=== PATIENT | female | born 1970 | race African-American/Black ===

== ENCOUNTER 2016-07-02 07:10 | Emergency (ER) | payer SELFPAY ==
[2016-07-02 07:27] VITALS: TEMP 98.9; BMI 27.8
[2016-07-02] MEDS ORDERED: cloNIDine HCL 0.1 MG TABLET PO ONE (08:31)
[2016-07-02] MEDS ORDERED: KETOROLAC TROMETHAMINE 30 MG/1 ML VIAL IVPUSH ONE (08:32)
[2016-07-02] MEDS ORDERED: SODIUM CHLORIDE 1,000 ML IV STA (08:32)
[2016-07-02] MEDS ORDERED: cloNIDine HCL 0.1 MG TABLET ONE (08:34)
--- NOTE | 2016-07-02 08:41 | PDOC ---
History of Present Illness - General Chief Complaint: Blood Pressure Problem Stated Complaint: BODY PAIN Time Seen by Provider: 07/02/16 07:40 History Source: Patient Exam Limitations: No Limitations - History of Present Illness Initial Comments: 07/02/16 08:01 46-year-old female presents to the ED with complaints of cough since Friday associated with chills and a MAXIMUM TEMPERATURE of 101.0 yesterday associated with productive cough which she describes as semi-thick and white. Patient states every time she coughs her back and abdomen hurts and also states has had a frontal headache since yesterday. Patient also states was told by her clinical laboratory technician 2 months ago that her blood pressure was high and needs to follow-up with her PCP but has failed to do so since she states she was scared to be told that she had high blood pressure. Patient also states was a 4 beer a day drinker 4 times a week up until last week but states works full-time and follows a normal diet. patient denies change in bowel, change in urine pattern , lower extremity edema, shortness of breath, orthopnea, chest pain, palpitations, or right upper quadrant pain. Patient denies medical history and takes no medication daily. Timing/Duration: changing over time Severity: moderate Associated Symptoms: reports: cough, fever/chills, headaches, weakness (mild generalized) Past History - Past Medical History Allergies/Adverse Reactions: Allergies Allergy/AdvReac Type Severity Reaction Status Date / Time Penicillins Allergy Verified 07/02/16 07:19 Home Medications: Ambulatory Orders Azithromycin [Zithromax Tri-Mauricio (3 DAYS) -] 500 mg PO DAILY #3 tablet 07/02/16 Other medical history: PATIENT DENIES MEDICAL HISTORY - Reproductive History LMP Normal: Yes Is Patient Now?: No - Psycho/Social/Smoking Cessation Hx Anxiety: No Suicidal Ideation: No Smoking History: Never smoked Hx Alcohol Use: Yes (beer daily) Drug/Substance Use Hx: No Substance Use Type: Alcohol Patient Lives Alone: No Lives with/in: daughter Review of Systems - Review of Systems Able to Perform ROS?: Yes Constitutional: Yes: Chills, Fever, Weakness HEENTM: Yes: Throat Pain (mild) Respiratory: Yes: Cough, Productive cough Cardiac (ROS): No: Symptoms Reported ABD/GI: No: Symptoms Reported : No: Symptoms Reported Musculoskeletal: Yes: Neck Pain Integumentary: No: Symptoms Reported Neurological: Yes: Headache. No: Weakness, Dizziness Endocrine: No: Symptoms Reported Hematologic/Lymphatic: No: Symptoms Reported *Physical Exam - Vital Signs Last Vital Signs Temp Pulse Resp BP Pulse Ox 98.9 F 100 H 16 181/119 98 07/02/16 07:14 07/02/16 08:31 07/02/16 08:31 07/02/16 08:31 07/02/16 08:31 - Physical Exam General Appearance: Yes: Nourished, Appropriately Dressed. No: Apparent Distress HEENT: positive: EOMI, TYLER, Pharynx Normal. negative: Pale Conjunctivae Neck: positive: Supple. negative: Lymphadenopathy (R), Lymphadenopathy (L), Other (no JVD) Respiratory/Chest: positive: Lungs Clear, Normal Breath Sounds. negative: Respiratory Distress, Accessory Muscle Use Cardiovascular: positive: Regular Rhythm, Tachycardia. negative: Murmur Gastrointestinal/Abdominal: positive: Soft, Distended (mild). negative: Guarding, Rebound, Tenderness, Mass Musculoskeletal: negative: CVA Tenderness Extremity: positive: Normal Capillary Refill. negative: Pedal Edema Integumentary: positive: Normal Color, Dry, Warm Neurologic: positive: Motor Strength 5/5 (ambulatory). negative: Normal Mood/ Affect (mildly anxious) ED Treatment Course - LABORATORY CBC & Chemistry Diagram: 07/02/16 09:15 07/02/16 09:15 - RADIOLOGY Radiology Studies Ordered: Category Date Time Status CHEST PA & LAT [RAD] Stat Radiology 07/02/16 08:32 Ordered Medical Decision Making - Medical Decision Making 07/02/16 08:06 Patient with elevated blood pressure, headache, cough, chills, alcohol abuse concerning for electrolyte imbalance, end organ damage, and intracranial pathology. Patient ordered for labs, EKG, chest x-ray, influenza swab, IV fluids , clonidine to control blood pressure, IV fluids, head CT, and urine. 07/02/16 11:25 Laboratory Tests 07/02/16 07/02/16 07/02/16 08:59 08:59 09:15 WBC 2.5 L Hgb 8.9 L Hct 29.1 L MCV 67.6 L MCHC 30.5 L RDW 24.5 H Plt Count 240 Sodium 134 L Chloride 102 Carbon Dioxide 22 Anion Gap 10 BUN 8 Creatinine 0.8 Lactic Acid AST 255 H ALT 102 H Albumin 2.8 L Serum , Qual Urine Glucose (UA) Negative Urine Ketones 1+ H Urine Blood 3+ H Urine Nitrite Negative Urine Urobilinogen 2.0 e.u/dl H Urine RBC 8 Urine WBC 1 Urine HCG, Qual Pending 07/02/16 07/02/16 09:15 09:15 WBC Hgb Hct MCV MCHC RDW Plt Count Sodium Chloride Carbon Dioxide Anion Gap BUN Creatinine Lactic Acid 0.832 AST ALT Albumin Serum , Qual Negative Urine Glucose (UA) Urine Ketones Urine Blood Urine Nitrite Urine Urobilinogen Urine RBC Urine WBC Urine HCG, Qual Head CT shows mild to moderate volume loss probable chronic microvascular ischemic changes without gross evidence of acute intracranial pathology. Patient is influenza B-positive. 07/02/16 11:26 Selected Entries 07/02/16 10:39 Pulse Rate [ 84 Radial] Respiratory 16 Rate Blood Pressure 134/99 [Left Arm] Blood Pressure 110 Mean [Left Arm] O2 Sat by Pulse 96 Oximetry (%) chest x-ray shows questionable right lower lobe infiltrate. Based on patient's clinical exam and history patient will be given a prescription for azithromycin 07/02/16 11:39 Called and made an appointment with Dr. Jimmy Torres this Friday at 9:30 for patient. 07/02/16 11:58 *DC/Admit/Observation/Transfer Diagnosis at time of Disposition: Influenza B, Elevated blood pressure reading Right lower lobe pneumonia Qualifiers: Pneumonia type: due to unspecified organism Qualified Code(s): J18.1 - Lobar pneumonia, unspecified organism - Discharge Dispostion Disposition: HOME Condition at time of disposition: Improved - Prescriptions Prescriptions: Azithromycin [Zithromax Tri-Mauricio (3 DAYS) -] 500 mg PO DAILY #3 tablet - Patient Instructions Printed Discharge Instructions: DI for High Blood Pressure, DI for Influenza - - Adult Additional Instructions: You have an appointment with Dr. Jimmy Torres this Friday at 9:30 in the morning [address] [place] [address] You were diagnosed with influenza B and advised to rest at home for the next 2 days taking Motrin for discomfort and fever. On your chest x-ray there is a questionable right lower lobe pneumonia which I am giving you a prescription of azithromycin for which you need to take until completed Avoid alcohol, use drink plenty of fluids and eat well-balanced meals - Post Discharge Activity Work/School Note: Back to Work
[2016-07-02] MEDS ORDERED: KETOROLAC TROMETHAMINE 30 MG/1 ML VIAL ONE (08:47)
[2016-07-02 09:40] LABS: MCH 20.6 pg (25.7-33.7); MCHC 30.5 g/dl (32.0-36.0); MEAN CELL VOLUME 67.6 fl (80-96); MEAN PLT VOLUME 8.5 fl (7.5-11.1); PLATELET COUNT 240 K/MM3 (134-434); RDW 24.5 % (11.6-15.6); WHITE BLOOD COUNT 2.5 K/mm3 (4.0-10.0)
[2016-07-02 10:40] VITALS: PULSE 84
[2016-07-02 10:41] LABS: URINE APPEARANCE CLEAR; URINE BILIRUBIN NEGATIVE (NEGATIVE); URINE COLOR YELLOW; URINE GLUCOSE (UA) NEGATIVE (NEGATIVE); URINE KETONE 1+ (NEGATIVE); URINE LEUK ESTERASE NEGATIVE (NEGATIVE); URINE NITRITE NEGATIVE (NEGATIVE); URINE PROTEIN NEGATIVE (NEGATIVE); URINE UROBILINOGEN 2.0 E.U/dl E.U./dl (0.2-1.0)
[2016-07-02 10:58] LABS: URINE BLOOD 3+ (NEGATIVE)
[2016-07-02 11:01] LABS: URINE HYALINE CAST 1 /lpf; URINE MUCUS RARE; URINE RBC 8 /hpf (0-3); URINE WBC 1 /hpf (3-5)
[2016-07-02 11:03] LABS: ALBUMIN 2.8 g/dl (3.4-5.0); ANION GAP 10 (8-16); CO2 22 mmol/L (21-32); COCKROFT - GAULT 92.3695; CREATININE 0.8 mg/dL (0.55-1.02); GLUCOSE,RANDOM 96 mg/dL (74-106); SGOT/AST 255 U/L (15-37)
[2016-07-02 11:14] LABS: ALK PHOS 105 U/L (45-117); BILIRUBIN,TOTAL 0.4 mg/dL (0.2-1.0); SGPT/ALT 102 U/L (12-78); TOT PROT 7.5 g/dl (6.4-8.2)
[2016-07-02 11:58] VITALS: BP 145/95
--- NOTE | 2016-07-02 12:38 | EKG ---
Test Reason : Blood Pressure : / mmHG Vent. Rate : 090 BPM Atrial Rate : 090 BPM P-R Int : 122 ms QRS Dur : 080 ms QT Int : 400 ms P-R-T Axes : 012 000 024 degrees QTc Int : 489 ms NORMAL SINUS RHYTHM PROLONGED QT ABNORMAL ECG WHEN COMPARED WITH ECG OF 03-OCT-2008 17:01, NO SIGNIFICANT CHANGE WAS FOUND CLINICAL CORRELATION IS RECOMMENDED Confirmed by MAGI PURI, KAVIN ([id number]) on 07/02/2016 12:38:25 PM Referred By: Confirmed By:KAVIN SOW MD
[2016-07-02 12:51] LABS: HYPOCHROMIA 4+; MICROCYTOSIS 2+; PLATELET ESTIMATE ADEQUATE (NORMAL); POLYCHROMASIA 1+
[2016-07-02 12:52] LABS: ANISOCYTOSIS 1+
== END 2016-07-02 12:15 | disposition home or self-care (01) ==
LOC: JER 07:10
PROC: 3E0333Z Introduction of Anti-inflammatory into Peripheral Vein, Percutaneous Approach (ICD-10-PCS; principal; 2016-07-02)
PROC: 3E0337Z Introduction of Electrolytic and Water Balance Substance into Peripheral Vein, Percutaneous Approach (ICD-10-PCS; 2016-07-02)
DX: J10.1 Influenza due to other identified influenza virus with other respiratory manifestations (principal); J18.1 Lobar pneumonia, unspecified organism; Z01.31 Encounter for examination of blood pressure with abnormal findings
CPT/HCPCS: 36415; 70450-TC; 71020-TC; 80053; 81003; 81015; 83605; 84703; 85025; 87804; 93005; 93010; 99283-25

== ENCOUNTER 2016-12-25 00:35 | Inpatient (IN) | payer OTHER ==
[2016-12-25] MEDS ORDERED: FAMOTIDINE 20 MG/50 ML IVPB 50 ML IVPB ONE ×2 (01:44→02:01)
[2016-12-25] MEDS ORDERED: SODIUM CHLORIDE 1,000 ML IV STA ×2 (01:44→03:11)
[2016-12-25] MEDS ORDERED: PANTOPRAZOLE SODIUM 40 MG in SODIUM CHLORIDE 100 ML IVPB ONE (01:44)
[2016-12-25] MEDS ORDERED: LIDOCAINE VISCOUS 2% ORAL/TOP 20 ML UNIT-DOSE CUP MM ONE (01:44)
[2016-12-25] MEDS ORDERED: ONDANSETRON 4 MG/2 ML VIAL IVPUSH ONE (01:46)
[2016-12-25] MEDS ORDERED: ONDANSETRON 4 MG/2 ML VIAL ONE ×2 (02:00→03:26)
[2016-12-25] MEDS ORDERED: LIDOCAINE VISCOUS 2% ORAL/TOP 20 ML UNIT-DOSE CUP ONE (02:00)
[2016-12-25] MEDS ORDERED: PANTOPRAZOLE SODIUM 40 MG VIAL ONE (02:04)
[2016-12-25 02:46] LABS: BASOPHIL 1.3 % (0-2.0); MCH 26.3 pg (25.7-33.7); MCHC 30.6 g/dl (32.0-36.0); MEAN PLT VOLUME 6.7 fl (7.5-11.1); NEUTROPHILS 88.3 % (42.8-82.8); PLATELET COUNT 270 K/MM3 (134-434); WHITE BLOOD COUNT 8.2 K/mm3 (4.0-10.0)
[2016-12-25 02:47] LABS: URINE APPEARANCE CLEAR; URINE BILIRUBIN NEGATIVE (NEGATIVE); URINE BLOOD NEGATIVE (NEGATIVE); URINE COLOR LTYELLOW; URINE GLUCOSE (UA) NEGATIVE (NEGATIVE); URINE KETONE 2+ (NEGATIVE); URINE NITRITE NEGATIVE (NEGATIVE); URINE UROBILINOGEN NEGATIVE mg/dL (0.2-1.0)
[2016-12-25 02:49] LABS: URINE PROTEIN 1+ (NEGATIVE)
[2016-12-25 02:50] LABS: URINE HYALINE CAST 4 /lpf; URINE MUCUS RARE; URINE RBC <1 /hpf (0-3); URINE WBC 7 /hpf (3-5)
[2016-12-25 03:09] LABS: ALK PHOS 93 U/L (45-117); AMYLASE 69 U/L (25-115); ANION GAP 28 (8-16); BILIRUBIN,DIRECT 0.3 mg/dL (0.0-0.2); BILIRUBIN,TOTAL 0.7 mg/dL (0.2-1.0); CALCIUM 9.1 mg/dL (8.5-10.1); CO2 10 mmol/L (21-32); CREATININE 0.8 mg/dL (0.55-1.02); SGOT/AST 71 U/L (15-37); SGPT/ALT 59 U/L (12-78); TOT PROT 8.8 g/dl (6.4-8.2)
[2016-12-25] MEDS ORDERED: LORazepam 1 MG TABLET PO ONE (03:11)
--- NOTE | 2016-12-25 03:11 | PDOC ---
History of Present Illness - General Chief Complaint: Substance Abuse Stated Complaint: VOMITING/COFFEE GROUND Time Seen by Provider: 12/25/16 01:33 History Source: Patient Exam Limitations: No Limitations - History of Present Illness Travel History: No Initial Comments: 12/25/16 03:05 46yo Female patient w/ PmHx: Alcoholism, HLD presents to ED c/o nausea and vomiting that began around 1pm yesterday. Patient states she has not eaten in 3 days due to no appetite. She reports last alcoholic drink at 1 pm when vomiting began. + Associated throat pain. LNMP: 3 month ago. Patient denies abdominal pain, back pain, CP, fever, hematuria, dysuria, hematemesis, rectal bleeding or any other complaints at this time. Timing/Duration: reports: getting worse Quality: denies: mild, moderate, severe, aching, burning, cramping, dullness, fullness, sharpness, stabbing, throbbing, other Abdominal Pain Onset Location: denies: RUQ, LUQ, RLQ, LLQ, epigastric, periumbilical, suprapubic, generalized abdomen, flank, unknown, other Pain Radiation: reports: no radiation. denies: RUQ, LUQ, RLQ, LLQ, epigastric, periumbilical, flank, groin, scapula, shoulder, chest, back, other Activities at Onset: reports: no specific activity. denies: none, exertion, emotional upset, rest, sleep, eating, working, sexual intercourse, other Aggravating Factors: worse with: None, Defecation, Eating, Emotional upset, Exertion, [place], Movement, Voiding, Change in position Alleviating Factors: worse with: None, Belching, Shallow Breathing, Defecation, Eating, Holding Breath, Passing Gas, Change in Position, Rest, Voiding, Vomiting Past History - Travel Traveled outside of the country in the last 30 days: No Close contact w/someone who was outside of country & ill: No - Past Medical History Allergies/Adverse Reactions: Allergies Allergy/AdvReac Type Severity Reaction Status Date / Time Penicillins Allergy Verified 12/25/16 01:34 Home Medications: Ambulatory Orders NK [No Known Home Medication] 12/25/16 - Suicide/Smoking/Psychosocial Hx Smoking History: Never smoked Hx Alcohol Use: Yes Drug/Substance Use Hx: No Substance Use Type: Alcohol Abd/GI Specific PMHX - Complaint Specific PMHX Colitis: No Diverticulitis: No Gall Bladder Disease: No GERD: No Hepatitis: No Irritable Bowel Synd (IBS): No Pancreatitis: No GI Ulcer Disease: No Review of Systems - Review of Systems Able to Perform ROS?: Yes Is the patient limited Brazilian proficient: No Constitutional: No: Chills, Fever Respiratory: No: Cough, Shortness of Breath, Wheezing Cardiac (ROS): No: Chest Pain, Chest Tightness ABD/GI: Yes: Abdominal Distended, Difficulty Swallowing, Nausea, Poor Fluid Intake, Vomiting. No: Blood Streaked Bowels, Constipated, Diarrhea, Poor Appetite, Rectal Bleeding, Indigestion, Abdominal cramping : No: Burning, Dysuria, Discharge, Flank Pain, Hematuria, Pain, Urgency Musculoskeletal: No: Back Pain Integumentary: No: Bruising, Erythema, Rash, Sweating Neurological: No: Headache, Numbness, Seizure, Tremors, Weakness, Ataxia, Dizziness All Other Systems: Reviewed and Negative *Physical Exam - Vital Signs Last Vital Signs Temp Pulse Resp BP Pulse Ox 97.7 F 87 17 169/90 99 12/25/16 01:29 12/25/16 01:29 12/25/16 01:29 12/25/16 01:29 12/25/16 01:29 - Physical Exam General Appearance: Yes: Nourished, Appropriately Dressed, Mild Distress. No: Apparent Distress, Moderate Distress, Severe Distress Neck: positive: Tender (Anterior aspect of throat.), Trachea midline, Normal Thyroid, Supple. negative: Rigid, Stridor, Lymphadenopathy (R), Lymphadenopathy (L) Respiratory/Chest: positive: Lungs Clear, Normal Breath Sounds. negative: Chest Tender, Respiratory Distress, Accessory Muscle Use, Labored Respiration, Rapid RR, Decreased Breath Sounds, Paradoxal Breathing, Crackles, Rhonchi, Stridor, Wheezing, Hyperresonant Cardiovascular: positive: Regular Rhythm, Regular Rate Gastrointestinal/Abdominal: positive: Normal Bowel Sounds, Soft Heart Score/ECG Review - ECG Impressions Normal ECG: No Non-specific ST Elevation: No Ischemic Changes: No Torsades otis Pointes: No WPW: No Comment:: 12/25/16 04:11 SR with shorten CO intervals Prolonged QT intervals Rate 92 bpm ED Treatment Course - LABORATORY CBC & Chemistry Diagram: 12/25/16 02:24 12/25/16 02:24 - ADDITIONAL ORDERS Additional order review: Laboratory Results 12/25/16 02:34 Urine Color Ltyellow Urine Appearance Clear Urine pH 5.0 Urine Protein 1+ H Urine Glucose (UA) Negative Urine Ketones 2+ H Urine Blood Negative Urine Nitrite Negative Urine Bilirubin Negative Urine Urobilinogen Negative Urine RBC <1 Urine WBC 7 Ur Epithelial Cells Rare Hyaline Casts 4 Urine Mucus Rare Urine HCG, Qual Negative 12/25/16 02:24 RBC 4.05 MCV 86.0 D MCHC 30.6 L RDW 27.0 H MPV 6.7 L D Neutrophils % 88.3 H D Lymphocytes % 6.4 L D Monocytes % 4.0 D Eosinophils % 0.0 Basophils % 1.3 - RADIOLOGY Radiology Studies Ordered: Category Date Time Status GALLBLADDER US [US] Stat Ultrasound 12/25/16 01:44 Taken - Medications Given in the ED: ED Medications Discontinued Medications Generic Name Dose Route Start Last Admin Trade Name Freq PRN Reason Stop Dose Admin Pantoprazole Sodium 40 mg/ 100 mls @ 200 mls/hr 12/25/16 01:44 12/25/16 02:00 Sodium Chloride IVPB 12/25/16 02:13 200 mls/hr ONCE ONE Administration Famotidine/Sodium Chloride 50 mls @ 100 mls/hr 12/25/16 01:44 12/25/16 02:00 Pepcid 20 Mg Premixed Ivpb - IVPB 12/25/16 02:13 100 mls/hr ONCE ONE Administration Sodium Chloride 1,000 mls @ 1,000 mls/hr 12/25/16 01:44 12/25/16 02:00 Normal Saline - IV 12/25/16 02:43 1,000 mls/hr ASDIR STA Administration Lidocaine HCl 10 ml 12/25/16 01:44 12/25/16 02:00 Xylocaine 2% Viscous Oral - MM 12/25/16 01:45 10 ml ONCE ONE Administration Ondansetron HCl 4 mg 12/25/16 01:46 12/25/16 02:00 Zofran Injection IVPUSH 12/25/16 01:47 4 mg ONCE ONE Administration Medical Decision Making - Medical Decision Making 12/25/16 05:06 Patient admitted to ICU; KYLE Jan received report. Dr. Bentley made aware and agrees with admission. *DC/Admit/Observation/Transfer Diagnosis at time of Disposition: Alcoholic ketoacidosis, Alcohol abuse Nausea & vomiting Qualifiers: Vomiting type: bilious vomiting Qualified Code(s): R11.14 - Bilious vomiting; R11.14 - Bilious vomiting - Discharge Dispostion Condition at time of disposition: Critical Admit: Yes
[2016-12-25 03:12] LABS: GLUCOSE,RANDOM 35 mg/dL (74-106)
[2016-12-25] MEDS ORDERED: FOLIC ACID INJECTION - 1 MG, THIAMINE HCL 100 MG, MULTIVIT INJECTION ADULT 10 ML in SOD... IVPB ONE (03:14)
[2016-12-25] MEDS ORDERED: DEXTROSE 5%-0.45% SALINE 1,000 ML IV SCH (03:15)
[2016-12-25] MEDS ORDERED: DEXTROSE 50%-WATER - 25 GM/50 ML VIAL ONE ×2 (03:18→03:19)
[2016-12-25] MEDS ORDERED: GlUCAGON HUMAN RECOMBINANT 1 MG/VIAL ONE (03:19)
[2016-12-25] MEDS ORDERED: GLUCAGON 1 MG KIT IVPUSH ONE (03:20)
[2016-12-25] MEDS ORDERED: METOCLOPRAMIDE HCL INJECTION 10 MG/2 ML VIAL IVPB ONE (03:26)
[2016-12-25] MEDS ORDERED: METOCLOPRAMIDE HCL INJECTION 10 MG/2 ML VIAL ONE (03:26)
[2016-12-25 03:48] LABS: ARTERIAL BLD GAS O2 SATURATION 97.4 % (90-98.9); ARTERIAL BLOOD GAS BASE EXCESS -21.2 meq/l (-2-2); ARTERIAL BLOOD GAS HCO3 5.8 meq/L (22-26)
[2016-12-25 03:49] LABS: MAGNESIUM 2.1 mg/dL (1.8-2.4); PHOSPHOROUS 3.2 mg/dL (2.5-4.9)
[2016-12-25 03:50] LABS: ALLENS TEST POSITIVE; ART PUNCT SITE RIGHT BRACHIAL; METHEMOGLOBIN 0.7 % (0.4-1.5); PT. ON O2? NO
[2016-12-25 03:55] LABS: ARTERIAL BLOOD GAS pH 7.19 (7.35-7.45)
[2016-12-25] MEDS ORDERED: SODIUM BICARBONATE 8.4% 50 MEQ/50 ML DISP.SYRIN IVPUSH ONE (04:00)
[2016-12-25] MEDS ORDERED: SODIUM BICARBONATE 8.4% - 100 ML ONE (04:03)
[2016-12-25 04:39] LABS: ALCOHOL < 5.0 mg/dl (0-5)
[2016-12-25 04:40] LABS: ANISOCYTOSIS 2+; MACROCYTOSIS 1+; MICROCYTOSIS 1+
[2016-12-25 04:56] LABS: CPK 70 IU/L (26-192); TROPONIN I < 0.02 ng/ml (0.00-0.05)
[2016-12-25 04:58] LABS: SALICYLATE < 4.0 mg/dl (0.0-30.0)
--- NOTE | 2016-12-25 05:58 | PDOC ---
*Physical Exam - Vital Signs Last Vital Signs Temp Pulse Resp BP Pulse Ox 98.1 F 85 18 137/92 98 12/25/16 04:53 12/25/16 04:53 12/25/16 04:53 12/25/16 05:26 12/25/16 04:53 ED Treatment Course - LABORATORY CBC & Chemistry Diagram: 12/25/16 02:24 12/25/16 02:24 - ADDITIONAL ORDERS Additional order review: Laboratory Results 12/25/16 12/25/16 12/25/16 05:34 04:23 04:13 Puncture Site ABG pH ABG pCO2 at Pt Temp ABG pO2 at Pt Temp ABG HCO3 ABG O2 Sat (Measured) ABG O2 Content ABG Base Excess Westley Test Carboxyhemoglobin Methemoglobin Oxygen Flow Rate PEEP Sodium Potassium Chloride Carbon Dioxide Anion Gap BUN Creatinine POC Glucometer 141.27682 80.93009 Random Glucose Lactic Acid Calcium Phosphorus Magnesium Total Bilirubin Direct Bilirubin AST ALT Alkaline Phosphatase Creatine Kinase 70 Troponin I < 0.02 Total Protein Albumin Total Amylase Lipase Urine Color Urine Appearance Urine pH Urine Protein Urine Glucose (UA) Urine Ketones Urine Blood Urine Nitrite Urine Bilirubin Urine Urobilinogen Urine RBC Urine WBC Ur Epithelial Cells Hyaline Casts Urine Mucus Urine HCG, Qual Salicylates Acetaminophen Alcohol, Quantitative 12/25/16 12/25/16 12/25/16 04:01 04:01 03:27 Puncture Site Right brachial ABG pH 7.19 L* ABG pCO2 at Pt Temp 16.0 L* ABG pO2 at Pt Temp 123.0 H ABG HCO3 5.8 L* ABG O2 Sat (Measured) 97.4 ABG O2 Content 13.3 L ABG Base Excess -21.2 L* Westley Test Positive Carboxyhemoglobin 2.3 H Methemoglobin 0.7 Oxygen Flow Rate No PEEP 0.0 Sodium Potassium Chloride Carbon Dioxide Anion Gap BUN Creatinine POC Glucometer Random Glucose Lactic Acid 6.7 H* Calcium Phosphorus Magnesium Total Bilirubin Direct Bilirubin AST ALT Alkaline Phosphatase Creatine Kinase Troponin I Total Protein Albumin Total Amylase Lipase Urine Color Urine Appearance Urine pH Urine Protein Urine Glucose (UA) Urine Ketones Urine Blood Urine Nitrite Urine Bilirubin Urine Urobilinogen Urine RBC Urine WBC Ur Epithelial Cells Hyaline Casts Urine Mucus Urine HCG, Qual Salicylates < 4.0 Acetaminophen < 2.0 L Alcohol, Quantitative < 5.0 10/01/3112/25/16 12/25/16 03:17 02:34 02:24 Puncture Site ABG pH ABG pCO2 at Pt Temp ABG pO2 at Pt Temp ABG HCO3 ABG O2 Sat (Measured) ABG O2 Content ABG Base Excess Westley Test Carboxyhemoglobin Methemoglobin Oxygen Flow Rate PEEP Sodium Potassium Chloride Carbon Dioxide Anion Gap BUN Creatinine POC Glucometer < 50 Random Glucose Lactic Acid Calcium Phosphorus 3.2 Magnesium 2.1 Total Bilirubin Direct Bilirubin AST ALT Alkaline Phosphatase Creatine Kinase Troponin I Total Protein Albumin Total Amylase Lipase Urine Color Ltyellow Urine Appearance Clear Urine pH 5.0 Urine Protein 1+ H Urine Glucose (UA) Negative Urine Ketones 2+ H Urine Blood Negative Urine Nitrite Negative Urine Bilirubin Negative Urine Urobilinogen Negative Urine RBC <1 Urine WBC 7 Ur Epithelial Cells Rare Hyaline Casts 4 Urine Mucus Rare Urine HCG, Qual Negative Salicylates Acetaminophen Alcohol, Quantitative 12/25/16 02:24 Puncture Site ABG pH ABG pCO2 at Pt Temp ABG pO2 at Pt Temp ABG HCO3 ABG O2 Sat (Measured) ABG O2 Content ABG Base Excess Westley Test Carboxyhemoglobin Methemoglobin Oxygen Flow Rate PEEP Sodium 136 Potassium 4.7 Chloride 98 Carbon Dioxide 10 L D Anion Gap 28 H BUN 7 Creatinine 0.8 POC Glucometer Random Glucose 35 L* D Lactic Acid Calcium 9.1 Phosphorus Magnesium Total Bilirubin 0.7 D Direct Bilirubin 0.3 H AST 71 H D ALT 59 D Alkaline Phosphatase 93 Creatine Kinase Troponin I Total Protein 8.8 H Albumin 4.0 D Total Amylase 69 Lipase 176 Urine Color Urine Appearance Urine pH Urine Protein Urine Glucose (UA) Urine Ketones Urine Blood Urine Nitrite Urine Bilirubin Urine Urobilinogen Urine RBC Urine WBC Ur Epithelial Cells Hyaline Casts Urine Mucus Urine HCG, Qual Salicylates Acetaminophen Alcohol, Quantitative 12/25/16 12/25/16 12/25/16 05:34 04:23 03:17 RBC MCV MCHC RDW MPV Neutrophils % Lymphocytes % Monocytes % Eosinophils % Basophils % POC Glucometer 141.04198 80.87787 < 50 12/25/16 02:24 RBC 4.05 MCV 86.0 D MCHC 30.6 L RDW 27.0 H MPV 6.7 L D Neutrophils % 88.3 H D Lymphocytes % 6.4 L D Monocytes % 4.0 D Eosinophils % 0.0 Basophils % 1.3 POC Glucometer - Medications Given in the ED: ED Medications Discontinued Medications Generic Name Dose Route Start Last Admin Trade Name Zurdo PRN Reason Stop Dose Admin Glucagon 1 mg 12/25/16 03:20 12/25/16 03:25 Glucagon - IVPUSH 12/25/16 03:21 1 mg ONCE ONE Administration Pantoprazole Sodium 40 mg/ 100 mls @ 200 mls/hr 12/25/16 01:44 12/25/16 02:00 Sodium Chloride IVPB 12/25/16 02:13 200 mls/hr ONCE ONE Administration Famotidine/Sodium Chloride 50 mls @ 100 mls/hr 12/25/16 01:44 12/25/16 02:00 Pepcid 20 Mg Premixed Ivpb - IVPB 12/25/16 02:13 100 mls/hr ONCE ONE Administration Sodium Chloride 1,000 mls @ 1,000 mls/hr 12/25/16 01:44 12/25/16 02:00 Normal Saline - IV 12/25/16 02:43 1,000 mls/hr ASDIR STA Administration Sodium Chloride 1,000 mls @ 1,000 mls/hr 12/25/16 03:11 12/25/16 03:25 Normal Saline - IV 12/25/16 04:10 Not Given ASDIR STA Lidocaine HCl 10 ml 12/25/16 01:44 12/25/16 02:00 Xylocaine 2% Viscous Oral - MM 12/25/16 01:45 10 ml ONCE ONE Administration Lorazepam 1 mg 12/25/16 03:11 12/25/16 03:25 Ativan - PO 12/25/16 03:12 Not Given ONCE ONE Lorazepam 1 mg 12/25/16 03:14 12/25/16 03:54 Ativan Injection - IVPUSH 12/25/16 03:15 Not Given ONCE ONE Lorazepam 0.5 mg 12/25/16 03:26 12/25/16 03:30 Ativan Injection - IVPUSH 12/25/16 03:27 0.5 mg ONCE ONE Administration Metoclopramide HCl 10 mg 12/25/16 03:26 12/25/16 03:50 Reglan Injection - IVPB 12/25/16 03:27 10 mg ONCE ONE Administration Ondansetron HCl 4 mg 12/25/16 01:46 12/25/16 02:00 Zofran Injection IVPUSH 12/25/16 01:47 4 mg ONCE ONE Administration Sodium Bicarbonate 50 meq 12/25/16 04:00 12/25/16 04:09 Sodium Bicarbonate 8.4% - IVPUSH 12/25/16 04:01 100 meq ONCE ONE Administration Medical Decision Making - Medical Decision Making 12/25/16 05:57 agree with care from [employer]ISTANT [employer] OPERATOR Theo *DC/Admit/Observation/Transfer Diagnosis at time of Disposition: Alcoholic ketoacidosis, Alcohol abuse Nausea & vomiting Qualifiers: Vomiting type: bilious vomiting Qualified Code(s): R11.14 - Bilious vomiting - Discharge Dispostion Condition at time of disposition: Critical - Referrals Referrals: Jimmy Torres [Primary Care Provider] - - Patient Instructions - Post Discharge Activity
[2016-12-25 06:48] VITALS: BMI 20.7
[2016-12-25] MEDS ORDERED: PNEUMOC 13-VAL CONJ-DIP CRM/PF 0.5 ML DISP.SYRIN IM ONE (06:49)
--- NOTE | 2016-12-25 08:20 | CONSULT ---
Consult Consult Specialty:: critical care - History of Present Illness History of Present Illness: 46yo woman with PMH of HLD and alcohol abuse (last drink 1pm yesterday) who presents to the ED after several days not eating and 1xday of nausea/vomiting. Last emesis while in the ED this AM, which was reportedly bilious. Denies any bloody emesis, melena and BRBPR. No prior hospitalizations for GI bleeds. Denies prior DTs or seizures. She has been abusing EtOH for past 20years, approximately 4x40oz beers/day. She tried stopping about a week ago, but began experiencing tremors and resumed drinking. She has also been constipated for the past month (last BM approximately 3 weeks ago). Denies opioid use, tobacco cigarretes, and other drug use. In the ED her VS were T 97.7, HR 87, BP 169/90, RR 17, SpaO2 98% on RA. Labs were notable for ABG showing acidemia (7.19/16/123/10) with 2+ketones in UA. She was given 0.5mg ativan, started on a banana bag (folic acid, thiamine, MV repletion), and transferred to the ICU for further monitoring. 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 Home Medications - Allergies Allergies/Adverse Reactions: Allergies Allergy/AdvReac Type Severity Reaction Status Date / Time Penicillins Allergy Verified 12/25/16 01:34 - Home Medications Home Medications: Ambulatory Orders NK [No Known Home Medication] 12/25/16 Family Disease History - Family Disease History Family Disease History: Other: Father (Alcoholism) Review of Systems - Review of Systems Constitutional: reports: Loss of Appetite Eyes: reports: No Symptoms HENT: reports: Throat Pain Neck: reports: No Symptoms Cardiovascular: reports: No Symptoms Respiratory: reports: No Symptoms Gastrointestinal: reports: Constipation, Nausea, Vomiting Genitourinary: reports: No Symptoms Neurological: denies: Seizure, Tremors Psychiatric: reports: Depression Physical Exam Vital Signs: Vital Signs Temperature 98.2 F 12/25/16 06:00 Pulse Rate 86 12/25/16 06:00 Respiratory Rate 18 12/25/16 06:00 Blood Pressure 140/70 12/25/16 06:00 O2 Sat by Pulse Oximetry (%) 98 12/25/16 06:00 Constitutional: Yes: Calm Eyes: Yes: Conjunctiva Clear. No: Sclera Icterus HENT: Yes: Pharyngeal Erythema Neck: No: Lymphadenopathy, Tenderness Cardiovascular: Yes: Regular Rate and Rhythm, S1, S2 Respiratory: Yes: CTA Bilaterally. No: Rales, Rhonchi, Wheezes Gastrointestinal: Yes: Soft. No: Tenderness Edema: No Peripheral Pulses WNL: Yes Neurological: Yes: Alert, Oriented. No: Tremors Labs: CBC, BMP 12/25/16 02:24 12/25/16 02:24 ABG Results ABG pH 7.42 (7.35-7.45) D 12/25/16 15:20 ABG pCO2 at Pt Temp 26.9 mmHg (35-45) L D 12/25/16 15:20 ABG pO2 at Pt Temp 91.8 mmHg (80-100) D 12/25/16 15:20 ABG HCO3 17.1 meq/L (22-26) L 12/25/16 15:20 ABG O2 Sat (Measured) 98.3 % (90-98.9) 12/25/16 15:20 ABG O2 Content 11.4 % vol (15-22) L 12/25/16 15:20 ABG Base Excess -6.1 meq/l (-2-2) L 12/25/16 15:20 Laboratory Tests 12/25/16 12/25/16 04:01 15:20 Puncture Site Left radial ABG pH 7.42 D ABG pCO2 at Pt Temp 26.9 L D ABG pO2 at Pt Temp 91.8 D ABG HCO3 17.1 L ABG O2 Sat (Measured) 98.3 ABG O2 Content 11.4 L ABG Base Excess -6.1 L [place] Test Positive Salicylates < 4.0 Acetaminophen < 2.0 L Alcohol, Quantitative < 5.0 Imaging - Results Ultrasound: Report Reviewed, Image Reviewed (RUQ U/S - GB sludge, no stones) Assessment/Plan 46yo woman who presents with EtOH withdrawal and found to have anion-gap metabolic acidosis. Patient was started on librium detox, and adapted physical education specialist consulted. #EtOH detox -Addiction medicine consulted -Librium detox started -s/p banana bag -Ondansetron 4mg q4h PRN for nausea -Start daily thiamine and vitamin po -f/u Utox #constipation -Miralax #hyperglycemia -D5NS fluids -Monitor BGM #Anion Gap Metabolic Acidosis likely 2/2 EtOH vs -f/u serum osms -trend lactate -repeat ABG #FEN -D5NS @ 100cc/hr -lytes wnl -Clear liquids #PPX -Heparin 5000U TID for DVT #Dispo - continue ICU monitoring FULL code d/w Dr. Orlin Julian MD PGY-1 Visit type - Emergency Visit Emergency Visit: No - New Patient This patient is new to me today: Yes Date on this admission: 12/25/16 - Critical Care Critical Care patient: Yes Total Critical Care Time (in minutes): 35 Critical Care Statement: The care of this patient involved high complexity decision making to prevent further life threatening deterioration of the patient 's condition and/or to evaluate & treat vital organ system(s) failure or risk of failure.
[2016-12-25 09:40] LABS: URINE LEUK ESTERASE Negative (NEGATIVE)
[2016-12-25] MEDS ORDERED: ONDANSETRON 4 MG/2 ML VIAL IVPUSH PRN (09:41)
[2016-12-25] MEDS ORDERED: POLYETHYLENE GLYCOL 3350 119 GM BTL PO ONE (09:45)
[2016-12-25] MEDS ORDERED: chlordiazePOXIDE HCL 25 MG CAPSULE PO ONE (09:46)
[2016-12-25] MEDS ORDERED: chlordiazePOXIDE HCL 25 MG CAPSULE PO PRN ×2 (09:46→11:37)
[2016-12-25] MEDS: BENZOCAINE/MENTH/CETYLPYRD CL 1 EACH LOZENGE MM PRN (10:00)
--- NOTE | 2016-12-25 10:29 | HP ---
Admitting History and Physical - Primary Care Physician PCP: Kane Roe - Admission Chief Complaint: HYPERGLYCEMIA/ETOH DEPENDENCE History of Present Illness: 46yo Female patient w/ PmHx: Alcoholism, HLD presents to ED c/o nausea and vomiting that began around 1pm yesterday. Patient states she has not eaten in 3 days due to no appetite. She reports last alcoholic drink at 1 pm when vomiting began. + Associated throat pain. LNMP: 3 month ago. Patient denies abdominal pain, back pain, CP, fever, hematuria, dysuria, hematemesis, rectal bleeding or any other complaints at this time. Timing/Duration: reports: getting worse Quality: denies: mild, moderate, severe, aching, burning, cramping, dullness, fullness, sharpness, stabbing, throbbing, other Abdominal Pain Onset Location: denies: RUQ, LUQ, RLQ, LLQ, epigastric, periumbilical, suprapubic, generalized abdomen, flank, unknown, other Pain Radiation: reports: no radiation. denies: RUQ, LUQ, RLQ, LLQ, epigastric, periumbilical, flank, groin, scapula, shoulder, chest, back, other Activities at Onset: reports: no specific activity. denies: none, exertion, emotional upset, rest, sleep, eating, working, sexual intercourse, other Aggravating Factors: worse with: None, Defecation, Eating, Emotional upset, Exertion, [employer], Movement, Voiding, Change in position Alleviating Factors: worse with: None, Belching, Shallow Breathing, Defecation, Eating, Holding Breath, Passing Gas, Change in Position, Rest, Voiding, Vomiting History Source: Patient, Medical Record Limitations to Obtaining History: Clinical Condition, Poor Historian - Smoking History Smoking history: Never smoked - Alcohol/Substance Use Hx Alcohol Use: Yes Home Medications - Allergies Allergies/Adverse Reactions: Allergies Allergy/AdvReac Type Severity Reaction Status Date / Time Penicillins Allergy Verified 12/25/16 01:34 - Home Medications Home Medications: Ambulatory Orders NK [No Known Home Medication] 12/25/16 Review of Systems - Review of Systems Constitutional: reports: Weakness Eyes: reports: No Symptoms HENT: reports: No Symptoms Neck: reports: No Symptoms Cardiovascular: reports: No Symptoms Respiratory: reports: SOB Gastrointestinal: reports: Nausea, Vomiting Genitourinary: reports: No Symptoms Musculoskeletal: reports: Muscle Cramps, Muscle Weakness Integumentary: reports: No Symptoms Neurological: reports: Pre-Existing Deficit, Weakness Endocrine: reports: No Symptoms Hematology/Lymphatic: reports: No Symptoms Psychiatric: reports: Anxiety, Depression Physical Examination Vital Signs: Vital Signs Temperature 98.3 F 12/25/16 10:00 Pulse Rate 85 12/25/16 10:00 Respiratory Rate 16 12/25/16 10:00 Blood Pressure 140/90 12/25/16 10:00 O2 Sat by Pulse Oximetry (%) 98 12/25/16 09:00 Constitutional: Yes: Moderate Distress Eyes: Yes: WNL HENT: Yes: WNL Neck: Yes: WNL, Rigid Respiratory: Yes: On Nasal O2, SOB Gastrointestinal: Yes: Tenderness Musculoskeletal: Yes: WNL Extremities: Yes: WNL Edema: No Peripheral Pulses WNL: Yes Integumentary: Yes: WNL Wound/Incision: Yes: Clean/Dry Neurological: Yes: Pre-Existing Deficit ...Motor Strength: LLE, RLE Psychiatric: Yes: Other Problem List - Problems (1) Alcohol abuse Code(s): F10.10 - ALCOHOL ABUSE, UNCOMPLICATED (2) Alcohol dependence Code(s): F10.20 - ALCOHOL DEPENDENCE, UNCOMPLICATED Qualifiers: Substance use status: in withdrawal Complication of substance-induced condition: uncomplicated Qualified Code(s): F10.230 - Alcohol dependence with withdrawal, uncomplicated; F10.230 - Alcohol dependence with withdrawal, uncomplicated; F10.230 - Alcohol dependence with withdrawal, uncomplicated (3) Alcoholic ketoacidosis Code(s): E87.2 - ACIDOSIS (4) Nausea & vomiting Code(s): R11.2 - NAUSEA WITH VOMITING, UNSPECIFIED Qualifiers: Vomiting type: bilious vomiting Qualified Code(s): R11.14 - Bilious vomiting; R11.14 - Bilious vomiting (5) Elevated blood pressure reading Code(s): R03.0 - ELEVATED BLOOD-PRESSURE READING, W/O DIAGNOSIS OF HTN Assessment/Plan IVF PROTONIX IV ZOFRAN IV ETOH DETOX LIBRIUM/THIAMINE/FOLIC ACID IVF BGM CHECKS SSI
--- NOTE | 2016-12-25 10:50 | CONSULT ---
Consult Detox [facility] Reason for Current Admission/Consult: alcohol withdrawal symptoms Referred by:: nahomy payne - History History of Present Illness: 46 yo f admitted to ICU after vomiting coffee grounds , PMHX depression not treated, chronic alcoholism, x20 years drinks 4 20oz malt liquor beers daily, denies h/o seizures or DTS in past. Has never been in drug treatment in past. started on libirum detox 50mg q6h in ICU now medically stable after 25mg prn dose. no complaints, no longer vomiting. no tremors, reports alcohol withdrawal syndrome when she tries to stop drinking on her own - anxiety, insomnia, tremors, sweats. tried to stop last week but relapsed after 3 days abstinent. Works full tiime but taking care of mother which is upsetting her, father and daughter at bedside, reports famly h/o depression - History Source History Provided By: Patient, Family Member, Medical Record Limitations to Obtaining History: No Limitations - Alcohol/Substance Use Hx Alcohol Use: Yes Hx Substance Use: No Hx Substance Use Treatment: No - Current Drug/Alcohol Use Alcohol Route: Oral Frequency: Daily Amount used: 4 40oz male liquor beers Age of first use: 26 Date of Last Use: 12/24/16 - Past Medical History ...: No Psych: Yes: Depression - Significant Medical Findings: patient A and O x3, slightly sedated after 25mg prn dose x1 given, can accelerate detox, no h/o seizures or DTs in past start with 25mg q6h x4 doses, then 15mg q6 x4 doses, 10mg q6h x4 doses if still in hospital, can give librium 25mg po prn q4h if needed for symptoms. zofran for nausea, ambien for sleep, tylenol for FINCH, complete detox in [place] and refer [facility]ensive outpatient alcohol treatment and psychaitric care. Appears to be self medication depression with alcohol in addition to her long standing alcohol use disorder. can add po vitamins (thiamine 50mg daily, vitiamins 1 daily) after bannana bag. consider test Call geronimo harris MD [phone] with any questions. thanks for this consult! CIWA Score - CIWA Score Nausea/Vomitin-Int. Nausea w/Dry Heave Muscle Tremors: 1-None Visible, but [place] Anxiety: 4-Mod. Anxious/Guarded Agitation: 3 Paroxysmal Sweats: No Perspiration Orientation: 0-Oriented Tacttile Disturbances: 1-Very Mild Itch/Numbness Auditory Disturbances: 0-None Visual Disturbances: 0-None Headache: 0-None Present CIWA-Ar Total Score: 13 Assessment Plan - Diagnosis (1) Alcohol dependence Status: Acute Qualifiers: Substance use status: uncomplicated Qualified Code(s): F10.20 - Alcohol dependence, uncomplicated; F10.20 - Alcohol dependence, uncomplicated; F10.20 - Alcohol dependence, uncomplicated - Plan Plan: cont librium detox protocol as ordered, can give ativan 2mg prn iv or po if additional medications needed, MVI, thiamine, folic acid, can transfer to [facility] to dcomplete detox or if medically stable can arrange for rehab bed. - Medication Detox Regimen/Protocol: Librium
[2016-12-25] MEDS ORDERED: chlordiazePOXIDE HCL 25 MG CAPSULE PO SCH (11:00)
--- NOTE | 2016-12-25 11:59 | EKG ---
Test Reason : Blood Pressure : / mmHG Vent. Rate : 092 BPM Atrial Rate : 092 BPM P-R Int : 108 ms QRS Dur : 088 ms QT Int : 412 ms P-R-T Axes : 057 012 049 degrees QTc Int : 509 ms SINUS RHYTHM WITH SHORT CA POSSIBLE LEFT ATRIAL ENLARGEMENT PROLONGED QT ABNORMAL ECG NO PREVIOUS ECGS AVAILABLE Confirmed by POLI JAMES MD ([id number]) on 12/25/2016 11:59:31 AM Referred By: Confirmed By:POLI JAMES MD
[2016-12-25] MEDS ORDERED: DEXTROSE 5%-NORMAL SALINE 1,000 ML IV SCH (12:00)
[2016-12-25] MEDS ORDERED: FLU VACCINE QUAD 60 MCG/0.5 ML (MDV 17-18) IM ONE (12:00)
--- NOTE | 2016-12-25 12:34 | PN ---
Teaching Attending Note Name of Resident: Alba Julian ATTENDING PHYSICIAN STATEMENT I saw and evaluated the patient. I reviewed the resident's note and discussed the case with the resident. I agree with the resident's findings and plan as documented. SUBJECTIVE: Pt seen and examined in the ICU. Still some nausea/vomiting but improving. Not tremulous after starting librium protocol. Addiction medicine eval appreciated. OBJECTIVE: Last Vital Signs Temp Pulse Resp BP Pulse Ox 98.3 F 85 16 140/90 98 12/25/16 10:00 12/25/16 10:00 12/25/16 10:00 12/25/16 10:00 12/25/16 09:00 Intake & Output 12/22/16 12/23/16 12/24/16 12/25/16 23:59 23:59 23:59 23:59 Weight 106 lb Gen: flat affect Heart: RRR Lung: decreased breath sounds at the bases Abd: soft, nontender Ext: no edema CBC, BMP 12/25/16 02:24 12/25/16 02:24 Active Medications Benzocaine/Menthol (Cepacol Lozenge -) 1 each MM PRN PRN PRN Reason: SORE THROAT Chlordiazepoxide HCl (Librium -) 25 mg PO [id number] MARY Stop: 12/26/16 05:01 Chlordiazepoxide HCl (Librium -) 15 mg PO Q4H PRN PRN Reason: WITHDRAWAL(CONT SUBST) Stop: 12/28/16 09:45 Chlordiazepoxide HCl (Librium -) 15 mg PO [id number] MARY Stop: 12/27/16 05:01 Heparin Sodium (Porcine) (Heparin -) 5,000 unit SQ TID MARY Dextrose/Sodium Chloride (D5-1/2ns -) 1,000 mls @ 100 mls/hr IV ASDIR MARY Last Admin: 12/25/16 03:25 Dose: 100 mls/hr Dextrose/Sodium Chloride (D5-Ns -) 1,000 mls @ 100 mls/hr IV ASDIR MARY Last Admin: 12/25/16 12:00 Dose: 100 mls/hr Ondansetron HCl (Zofran Injection) 4 mg IVPUSH Q4H PRN PRN Reason: NAUSEA AND/OR VOMITING Stop: 12/25/16 21:42 Pneumococcal 13-Valent Conj Vacc (Prevnar 13 Syringe -) 0.5 ml IM .ONCE ONE Stop: 12/25/16 06:50 ASSESSMENT AND PLAN: Alcoholic vs Starvation Ketoacidosis Anion Gap Metabolic Acidosis Alcohol Abuse Hypoglycemia Hyperlipidemia - IVF resuscitation - recheck BMP - send serum osms - librium protocol - replete vitamins - monitor BGM - DVT prophylaxis - continue ICU monitoring critical care time spent in reviewing chart, evaluating patient and formulating plan 35 min
[2016-12-25] MEDS: HEPARIN NA (PORCINE) 5,000 UNITS/ML 1ML VIAL SQ SCH ×2 (14:52→21:15)
[2016-12-25] MEDS ORDERED: PNEUMOCOCCAL 23 VACCINE 0.5 ML VIAL IM ONE (15:00)
[2016-12-25 15:28] LABS: ARTERIAL BLD GAS O2 SATURATION 98.3 % (90-98.9); ARTERIAL BLOOD GAS BASE EXCESS -6.1 meq/l (-2-2); ARTERIAL BLOOD GAS HCO3 17.1 meq/L (22-26); ARTERIAL BLOOD GAS PO2 91.8 mmHg (80-100); ARTERIAL BLOOD GAS pH 7.42 (7.35-7.45)
[2016-12-25 15:31] LABS: ALLENS TEST POSITIVE; ART PUNCT SITE LEFT RADIAL; LPM/O2% 21%; PT. ON O2? NO; TYPE OF O2 ROOM AIR
[2016-12-25] MEDS ORDERED: ZOLPIDEM TARTRATE 5 MG TABLET PO PRN (17:35)
[2016-12-25] MEDS ORDERED: ACETAMINOPHEN 325 MG TABLET (FP) PO PRN (17:35)
[2016-12-25] MEDS: chlordiazePOXIDE HCL 25 MG CAPSULE PO SCH ×2 (17:38→23:44)
[2016-12-25 18:51] LABS: URINE MARIJUANA THC NEGATIVE ng/ml (CUTOFF=50)
[2016-12-26 06:05] LABS: BASOPHIL 0.5 % (0-2.0); EOSINOPHIL 1.8 % (0-4.5); MCH 26.7 pg (25.7-33.7); MCHC 32.2 g/dl (32.0-36.0); MEAN CELL VOLUME 83.1 fl (80-96); MEAN PLT VOLUME 6.9 fl (7.5-11.1); NEUTROPHILS 66.5 % (42.8-82.8); PLATELET COUNT 180 K/MM3 (134-434); RDW 27.5 % (11.6-15.6)
[2016-12-26 06:31] LABS: ANION GAP 13 (8-16); CALCIUM 7.8 mg/dL (8.5-10.1); CO2 23 mmol/L (21-32); GLUCOSE,RANDOM 80 mg/dL (74-106); MAGNESIUM 1.7 mg/dL (1.8-2.4)
[2016-12-26 06:38] LABS: ALK PHOS 76 U/L (45-117); BILIRUBIN,TOTAL 0.9 mg/dL (0.2-1.0); CREATININE 0.6 mg/dL (0.55-1.02); PHOSPHOROUS 1.3 mg/dL (2.5-4.9); SGOT/AST 48 U/L (15-37); SGPT/ALT 36 U/L (12-78); TOT PROT 6.5 g/dl (6.4-8.2)
[2016-12-26] MEDS: chlordiazePOXIDE HCL 25 MG CAPSULE PO SCH (06:40)
[2016-12-26] MEDS: HEPARIN NA (PORCINE) 5,000 UNITS/ML 1ML VIAL SQ SCH ×3 (06:40→21:19)
--- NOTE | 2016-12-26 08:17 | PN ---
Physical Exam: 24H Events -yesterday - UTox neg, lactic acidosis resolved, AG closed. -AM - no tremors, 2x loose, brown BMs SUBJECTIVE: Patient seen and examined in ICU. Feels depressed. Denies FINCH. Denies fever, chills, chest pain, abdominal pain, and SOB. OBJECTIVE: Vital Signs Period Temp Pulse Resp BP Sys/Metcalf Pulse Ox Last 24 Hr 98.2 F-98.9 F 71-86 14-26 127-155/65-97 96-98 Intake & Output 12/23/16 12/24/16 12/25/16 12/26/16 23:59 23:59 23:59 23:59 Intake Total 1860 1450 Output Total 600 1900 Balance 1260 -450 Weight 48.081 kg GENERAL: aaox3, nad EYES: sclera anicteric, conjunctiva clear ENT: oropharynx with minimal erythema, moist mucous membranes. LUNGS: CTAB HEART: rrr, normal S1/S2, no murmur, rub or gallop. ABDOMEN: Soft, ntnd LOWER EXTREMITIES: 2+ pulses, warm, well-perfused, no edema. NEUROLOGICAL: no tremor, no asterixis CBC, BMP 12/26/16 05:00 12/26/16 05:00 Ca - 7.8 (corrected 8.6) Phos - 1.3 Mg - 1.7 Lactate: 6.7 -> 4.1 -> 1.0 Hepatic Panel Total Bilirubin 0.9 mg/dL (0.2-1.0) D 12/26/16 05:00 Direct Bilirubin 0.3 mg/dL (0.0-0.2) H 12/25/16 02:24 AST 48 U/L (15-37) H D 12/26/16 05:00 ALT 36 U/L (12-78) D 12/26/16 05:00 Alkaline Phosphatase 76 U/L (45-117) 12/26/16 05:00 Albumin 3.0 g/dl (3.4-5.0) L D 12/26/16 05:00 ABG Results ABG pH 7.44 (7.35-7.45) 12/26/16 11:45 ABG pCO2 at Pt Temp 33.4 mmHg (35-45) L D 12/26/16 11:45 ABG pO2 at Pt Temp 78.3 mmHg (80-100) L 12/26/16 11:45 ABG HCO3 22.2 meq/L (22-26) 12/26/16 11:45 ABG O2 Sat (Measured) 96.0 % (90-98.9) 12/26/16 11:45 ABG O2 Content 12.9 % vol (15-22) L 12/26/16 11:45 ABG Base Excess -1.0 meq/l (-2-2) 12/26/16 11:45 Laboratory Tests 12/25/16 12/25/16 04:01 18:00 Salicylates < 4.0 Opiates Screen Negative Methadone Screen Negative Acetaminophen < 2.0 L Barbiturate Screen Negative Phencyclidine Screen Negative Ur Amphetamines Screen Negative MDMA (Ecstasy) Screen Negative Benzodiazepines Screen Negative Cocaine Screen Negative U Marijuana (THC) Screen Negative Alcohol, Quantitative < 5.0 Active Medications Acetaminophen (Tylenol -) 325 mg PO Q4H PRN PRN Reason: HEADACHE Benzocaine/Menthol (Cepacol Lozenge -) 1 each MM PRN PRN PRN Reason: SORE THROAT Last Admin: 12/26/16 10:38 Dose: 1 each Chlordiazepoxide HCl (Librium -) 15 mg PO Q4H PRN PRN Reason: WITHDRAWAL(CONT SUBST) Stop: 12/28/16 09:45 Chlordiazepoxide HCl (Librium -) 15 mg PO [id number] [facility] Stop: 12/27/16 05:01 Chlordiazepoxide HCl (Librium -) 10 mg PO [id number] [facility] Stop: 12/27/16 23:01 Clonidine (Catapres -) 0.1 mg PO BID [facility] Heparin Sodium (Porcine) (Heparin -) 5,000 unit SQ TID [facility] Last Admin: 12/26/16 06:40 Dose: 5,000 unit Dextrose/Sodium Chloride (D5-Ns -) 1,000 mls @ 100 mls/hr IV ASDIR [facility] Last Admin: 12/25/16 12:00 Dose: 100 mls/hr Potassium Phosphate 30 mm/ (Sodium Chloride) 260 mls @ 62.5 mls/hr IVPB ONCE ONE Stop: 12/26/16 14:09 Last Admin: 12/26/16 10:32 Dose: 62.5 mls/hr Multivit/Folic Acid/Iron ( Vitamins (Sjr) -) 1 tab PO DAILY [facility] Last Admin: 12/26/16 09:53 Dose: 1 tab Thiamine HCl (Vitamin B1 -) 50 mg PO DAILY [facility] Last Admin: 12/26/16 09:52 Dose: 50 mg Zolpidem Tartrate (Ambien -) 5 mg PO HS PRN PRN Reason: INSOMNIA ASSESSMENT/PLAN: 46yo woman with PMH of HTN, EtOH abuse, and multiple food allergies who presents with EtOH withdrawal and found to have anion-gap metabolic acidosis. Patient was started on librium detox, and sales specialist consulted. Lactic acidosis is resolved, anion gap is closed. Can transfer to [facility]. #EtOH detox -Addiction medicine consulted -Librium detox started -Ondansetron 4mg q4h PRN for nausea -Daily thiamine and vitamin po -Acetaminophen 325mg PO q4h prn for FINCH #HTN -Clonidine per primary #constipation 2x loose stools AM -Resume Miralax daily if needed #Anion Gap Metabolic Acidosis, resolved Resolved, serum osms wnl, likely all 2/2 EtOH #FEN -Hold IVF -HypoK/Phos/Mag repleting with KPhos 30mm and 2mg IV -Na controlled diet, gluten free--> f/u resource management specialist recommendations, has multiple food allergies #PPX -Heparin 5000U TID for DVT -OOB as tolerated #Dispo - transfer to [facility] FULL code d/w Dr. Orlin Julian MD PGY-1 Visit type - Emergency Visit Emergency Visit: No - New Patient This patient is new to me today: No - Critical Care Critical Care patient: Yes Total Critical Care Time (in minutes): 35 Critical Care Statement: The care of this patient involved high complexity decision making to prevent further life threatening deterioration of the patient 's condition and/or to evaluate & treat vital organ system(s) failure or risk of failure.
[2016-12-26] MEDS ORDERED: THIAMINE HCL 100 MG TABLET (FP) PO SCH (10:00)
[2016-12-26] MEDS ORDERED: POTASSIUM PHOSPHATE 30 MM in SODIUM CHLORIDE 250 ML IVPB ONE (10:00)
[2016-12-26] MEDS ORDERED: PRENATAL VITAMINS W/ FOLIC ACID TABLET (FP) PO SCH (10:00)
[2016-12-26] MEDS: BENZOCAINE/MENTH/CETYLPYRD CL 1 EACH LOZENGE MM PRN (10:38)
[2016-12-26] MEDS ORDERED: chlordiazePOXIDE HCL 25 MG CAPSULE PO SCH ×2 (11:00)
--- NOTE | 2016-12-26 11:41 | PN ---
Progress Note, Physician Chief Complaint: AWAKE MORE ALERT - Current Medication List Current Medications: Active Medications Acetaminophen (Tylenol -) 325 mg PO Q4H PRN PRN Reason: HEADACHE Benzocaine/Menthol (Cepacol Lozenge -) 1 each MM PRN PRN PRN Reason: SORE THROAT Last Admin: 12/26/16 10:38 Dose: 1 each Chlordiazepoxide HCl (Librium -) 15 mg PO Q4H PRN PRN Reason: WITHDRAWAL(CONT SUBST) Stop: 12/28/16 09:45 Chlordiazepoxide HCl (Librium -) 15 mg PO [id number] [facility] Stop: 12/27/16 05:01 Chlordiazepoxide HCl (Librium -) 10 mg PO [id number] [facility] Stop: 12/27/16 23:01 Heparin Sodium (Porcine) (Heparin -) 5,000 unit SQ TID [facility] Last Admin: 12/26/16 06:40 Dose: 5,000 unit Dextrose/Sodium Chloride (D5-Ns -) 1,000 mls @ 100 mls/hr IV ASDIR [facility] Last Admin: 12/25/16 12:00 Dose: 100 mls/hr Potassium Phosphate 30 mm/ (Sodium Chloride) 260 mls @ 62.5 mls/hr IVPB ONCE ONE Stop: 12/26/16 14:09 Last Admin: 12/26/16 10:32 Dose: 62.5 mls/hr Multivit/Folic Acid/Iron ( Vitamins (Sjr) -) 1 tab PO DAILY [facility] Last Admin: 12/26/16 09:53 Dose: 1 tab Thiamine HCl (Vitamin B1 -) 50 mg PO DAILY [facility] Last Admin: 12/26/16 09:52 Dose: 50 mg Zolpidem Tartrate (Ambien -) 5 mg PO HS PRN PRN Reason: INSOMNIA - Objective Vital Signs: Vital Signs Temperature 97.8 F 12/26/16 10:00 Pulse Rate 83 12/26/16 10:00 Respiratory Rate 20 12/26/16 10:00 Blood Pressure 141/104 12/26/16 10:00 O2 Sat by Pulse Oximetry (%) 96 12/26/16 09:00 Constitutional: Yes: Mild Distress Eyes: Yes: WNL HENT: Yes: WNL Neck: Yes: WNL Cardiovascular: Yes: WNL Respiratory: Yes: WNL Gastrointestinal: Yes: WNL Genitourinary: Yes: WNL Musculoskeletal: Yes: Muscle Weakness Extremities: Yes: WNL Edema: No Peripheral Pulses WNL: Yes Integumentary: Yes: WNL Wound/Incision: Yes: Clean/Dry Neurological: Yes: Other ...Motor Strength: WNL Psychiatric: Yes: Other Labs: CBC, BMP 12/26/16 05:00 12/26/16 05:00 Problem List - Problems (1) Alcohol abuse Code(s): F10.10 - ALCOHOL ABUSE, UNCOMPLICATED (2) Alcohol dependence Code(s): F10.20 - ALCOHOL DEPENDENCE, UNCOMPLICATED Qualifiers: Substance use status: in withdrawal Complication of substance-induced condition: uncomplicated Qualified Code(s): F10.230 - Alcohol dependence with withdrawal, uncomplicated; F10.230 - Alcohol dependence with withdrawal, uncomplicated; F10.230 - Alcohol dependence with withdrawal, uncomplicated (3) Alcoholic ketoacidosis Code(s): E87.2 - ACIDOSIS (4) Nausea & vomiting Code(s): R11.2 - NAUSEA WITH VOMITING, UNSPECIFIED Qualifiers: Vomiting type: bilious vomiting Qualified Code(s): R11.14 - Bilious vomiting; R11.14 - Bilious vomiting (5) Elevated blood pressure reading Code(s): R03.0 - ELEVATED BLOOD-PRESSURE READING, W/O DIAGNOSIS OF HTN Assessment/Plan HYPERTENSION START CLONIDINE 0.1MG BID FOR HTN AND ETOH WITHDRAWEL TX LIBRIUM THIAMINE FOLIC ACID DETOX CONSULT OUTPATIENT REHAB FOR ETOH DEPENDENCE
[2016-12-26 11:55] LABS: ARTERIAL BLOOD GAS HCO3 22.2 meq/L (22-26); ARTERIAL BLOOD GAS PO2 78.3 mmHg (80-100); ARTERIAL BLOOD GAS pH 7.44 (7.35-7.45)
[2016-12-26 12:00] LABS: ALLENS TEST POSITIVE; ART PUNCT SITE RIGHT RADIAL; LPM/O2% 21%; PT. ON O2? NO; TYPE OF O2 R/A
[2016-12-26] MEDS ORDERED: cloNIDine HCL 0.1 MG TABLET PO SCH (12:00)
[2016-12-26] MEDS ORDERED: MAGNESIUM SULF 50% (8.12 MEQ/2 ML-1 GM VIAL) IVPB ONE (12:00)
--- NOTE | 2016-12-26 12:37 | PN ---
Teaching Attending Note Name of Resident: Alba Julian ATTENDING PHYSICIAN STATEMENT I saw and evaluated the patient. I reviewed the resident's note and discussed the case with the resident. I agree with the resident's findings and plan as documented. SUBJECTIVE: Pt seen and examined in the ICU. Feels better today. No further nausea or vomiting. Acidosis improved. Tolerating PO. OBJECTIVE: Last Vital Signs Temp Pulse Resp BP Pulse Ox 97.8 F 83 20 141/104 96 12/26/16 10:00 12/26/16 10:00 12/26/16 10:00 12/26/16 10:00 12/26/16 09:00 Intake & Output 12/23/16 12/24/16 12/25/16 12/26/16 23:59 23:59 23:59 23:59 Intake Total 1860 2050 Output Total 600 1900 Balance 1260 150 Weight 106 lb Gen: NAD at rest Heart: RRR Lung: decreased breath sounds at the bases Abd: soft, nontender Ext: no edema CBC, BMP 12/26/16 05:00 12/26/16 05:00 Active Medications Acetaminophen (Tylenol -) 325 mg PO Q4H PRN PRN Reason: HEADACHE Benzocaine/Menthol (Cepacol Lozenge -) 1 each MM PRN PRN PRN Reason: SORE THROAT Last Admin: 12/26/16 10:38 Dose: 1 each Chlordiazepoxide HCl (Librium -) 15 mg PO Q4H PRN PRN Reason: WITHDRAWAL(CONT SUBST) Stop: 12/28/16 09:45 Chlordiazepoxide HCl (Librium -) 15 mg PO [id number] [facility] Stop: 12/27/16 05:01 Chlordiazepoxide HCl (Librium -) 10 mg PO [id number] [facility] Stop: 12/27/16 23:01 Clonidine (Catapres -) 0.1 mg PO BID [facility] Heparin Sodium (Porcine) (Heparin -) 5,000 unit SQ TID [facility] Last Admin: 12/26/16 06:40 Dose: 5,000 unit Dextrose/Sodium Chloride (D5-Ns -) 1,000 mls @ 100 mls/hr IV ASDIR [facility] Last Admin: 12/25/16 12:00 Dose: 100 mls/hr Potassium Phosphate 30 mm/ (Sodium Chloride) 260 mls @ 62.5 mls/hr IVPB ONCE ONE Stop: 12/26/16 14:09 Last Admin: 12/26/16 10:32 Dose: 62.5 mls/hr Multivit/Folic Acid/Iron ( Vitamins (Sjr) -) 1 tab PO DAILY [facility] Last Admin: 12/26/16 09:53 Dose: 1 tab Thiamine HCl (Vitamin B1 -) 50 mg PO DAILY [facility] Last Admin: 12/26/16 09:52 Dose: 50 mg Zolpidem Tartrate (Ambien -) 5 mg PO HS PRN PRN Reason: INSOMNIA ASSESSMENT AND PLAN: Alcoholic vs Starvation Ketoacidosis resolved Alcohol Abuse Hypoglycemia Hyperlipidemia - continue IVF - librium protocol - replete vitamins - replete lytes - DVT prophylaxis - can monitor on floor
[2016-12-26] MEDS ORDERED: chlordiazePOXIDE HCL 25 MG CAPSULE PO ONE (14:50)
[2016-12-26] MEDS ORDERED: MAGNESIUM SULF 50% (8.12 MEQ/2 ML-1 GM VIAL) ONE (15:45)
--- NOTE | 2016-12-26 16:59 | PN ---
[facility] CIWA - CIWA Score Nausea/Vomitin-Mild Nausea/No Vomiting Muscle Tremors: 1-None Visible, but Ermine Anxiety: 1-Mildly Anxious Agitation: 0-Normal Activity Paroxysmal Sweats: 1-Minimal Palms Moist Orientation: 0-Oriented Tacttile Disturbances: 2-Mild Itch/Numbness/Burn Auditory Disturbances: 0-None Visual Disturbances: 0-None Headache: 0-None Present CIWA-Ar Total Score: 6 [facility] Progress Note (SOAP) Subjective: Patient tachycardic with elevated bp and hypokalemai earlier today, responded well to k supplementation, clonidine and prn libirum. still anxious with mild nausea, numbness and tingling in fingers. no seizures
[2016-12-26] MEDS ORDERED: cloNIDine HCL 0.1 MG TABLET PO PRN (17:05)
[2016-12-26] MEDS ORDERED: chlordiazePOXIDE HCL 25 MG CAPSULE PO PRN (17:36)
[2016-12-26] MEDS ORDERED: ONDANSETRON *ODT* 4 MG TABLET SL PRN (17:37)
[2016-12-26] MEDS: chlordiazePOXIDE 5 MG CAPSULE PO SCH ×2 (18:00→23:33)
[2016-12-26] MEDS ORDERED: chlordiazePOXIDE 5 MG CAPSULE PO PRN (18:00)
[2016-12-26 19:37] LABS: MAGNESIUM 2.5 mg/dL (1.8-2.4); PHOSPHOROUS 1.9 mg/dL (2.5-4.9)
[2016-12-26 19:38] LABS: ALBUMIN 3.1 g/dl (3.4-5.0); ALK PHOS 101 U/L (45-117); ANION GAP 12 (8-16); BILIRUBIN,TOTAL 0.6 mg/dL (0.2-1.0); CALCIUM 8.6 mg/dL (8.5-10.1); CO2 23 mmol/L (21-32); CREATININE 0.8 mg/dL (0.55-1.02); GLUCOSE,RANDOM 147 mg/dL (74-106); SGOT/AST 244 U/L (15-37); SGPT/ALT 66 U/L (12-78)
[2016-12-26] MEDS ORDERED: NAPH,MB-DB/K PH,MBDB POWDER PACKET PO ONE (19:52)
[2016-12-26] MEDS ORDERED: ACETAMINOPHEN 325 MG TABLET (FP) PO PRN (20:26)
[2016-12-26] MEDS ORDERED: BENZOCAINE/MENTH/CETYLPYRD CL 1 EACH LOZENGE MM PRN (20:26)
[2016-12-27] MEDS: HEPARIN NA (PORCINE) 5,000 UNITS/ML 1ML VIAL SQ SCH ×3 (06:20→21:12)
[2016-12-27] MEDS: chlordiazePOXIDE 5 MG CAPSULE PO SCH ×4 (06:20→23:48)
[2016-12-27 07:16] LABS: BASOPHIL 1.2 % (0-2.0); EOSINOPHIL 4.1 % (0-4.5); MCHC 31.2 g/dl (32.0-36.0); MEAN CELL VOLUME 83.2 fl (80-96); MEAN PLT VOLUME 7.3 fl (7.5-11.1); NEUTROPHILS 64.8 % (42.8-82.8); PLATELET COUNT 151 K/MM3 (134-434); RDW 27.4 % (11.6-15.6); WHITE BLOOD COUNT 3.3 K/mm3 (4.0-10.0)
[2016-12-27 07:41] LABS: ALBUMIN 2.7 g/dl (3.4-5.0); ALK PHOS 85 U/L (45-117); ANION GAP 9 (8-16); BILIRUBIN,TOTAL 0.8 mg/dL (0.2-1.0); CALCIUM 8.3 mg/dL (8.5-10.1); CO2 25 mmol/L (21-32); CREATININE 0.5 mg/dL (0.55-1.02); GLUCOSE,RANDOM 104 mg/dL (74-106); MAGNESIUM 2.3 mg/dL (1.8-2.4); PHOSPHOROUS 1.9 mg/dL (2.5-4.9); SGOT/AST 204 U/L (15-37); SGPT/ALT 75 U/L (12-78); TOT PROT 6.1 g/dl (6.4-8.2)
--- NOTE | 2016-12-27 08:31 | PN ---
[facility] Progress Note (SOAP) Subjective: patient report s no symptoms of withdrawal , some interrupted sleep, no treors, sweats, or anxiety - needs to return to work, requesting intensive outpatient treatment at [facility]. Objective: 12/27/16 08:27 Vital Signs - 24 hr 12/26/16 12/26/16 12/26/16 09:00 10:00 12:00 Temperature 97.8 F Pulse Rate 83 115 H Respiratory 20 20 19 Rate Blood Pressure 141/104 155/116 O2 Sat by Pulse 96 Oximetry (%) 12/26/16 12/26/16 12/26/16 14:00 15:00 16:00 Temperature 98.0 F Pulse Rate 98 H 93 H 94 H Respiratory 20 22 21 Rate Blood Pressure 143/94 121/88 122/92 O2 Sat by Pulse Oximetry (%) 12/26/16 12/26/16 12/26/16 18:00 20:00 20:01 Temperature 98.4 F Pulse Rate 98 H 88 Respiratory 16 20 Rate Blood Pressure 140/94 129/83 O2 Sat by Pulse 96 Oximetry (%) 12/26/16 12/27/16 20:34 06:00 Temperature 98.5 F 98.2 F Pulse Rate 83 80 Respiratory 20 20 Rate Blood Pressure 132/90 116/78 O2 Sat by Pulse 97 Oximetry (%) Laboratory Results - last 24 hr 12/26/16 12/26/16 12/26/16 05:00 11:45 18:10 WBC RBC Hgb Hct MCV MCH MCHC RDW Plt Count MPV Neutrophils % Lymphocytes % Monocytes % Eosinophils % Basophils % Puncture Site Right radial ABG pH 7.44 ABG pCO2 at Pt Temp 33.4 L D ABG pO2 at Pt Temp 78.3 L ABG HCO3 22.2 ABG O2 Sat (Measured) 96.0 ABG O2 Content 12.9 L ABG Base Excess -1.0 Westley Test Positive O2 Delivery Device R/a Oxygen Flow Rate 21% PEEP 0.0 Sodium 139 Potassium 3.6 Chloride 104 Carbon Dioxide 23 Anion Gap 12 BUN 6 L D Creatinine 0.8 D Creat Clearance w eGFR > 60 POC Glucometer Random Glucose 147 H D Calcium 8.6 Phosphorus Magnesium Total Bilirubin 0.6 D AST 244 H D ALT 66 D Alkaline Phosphatase 101 D Total Protein 7.0 Albumin 3.1 L Serum , Qual Negative 12/26/16 12/26/16 12/27/16 18:10 21:22 06:15 WBC 3.3 L RBC 3.40 L Hgb 8.8 L Hct 28.3 L MCV 83.2 MCH 26.0 MCHC 31.2 L RDW 27.4 H Plt Count 151 MPV 7.3 L Neutrophils % 64.8 Lymphocytes % 24.3 Monocytes % 5.6 Eosinophils % 4.1 D Basophils % 1.2 Puncture Site ABG pH ABG pCO2 at Pt Temp ABG pO2 at Pt Temp ABG HCO3 ABG O2 Sat (Measured) ABG O2 Content ABG Base Excess Westley Test O2 Delivery Device Oxygen Flow Rate PEEP Sodium Potassium Chloride Carbon Dioxide Anion Gap BUN Creatinine Creat Clearance w eGFR POC Glucometer 126 Random Glucose Calcium Phosphorus 1.9 L D Magnesium 2.5 H D Total Bilirubin AST ALT Alkaline Phosphatase Total Protein Albumin Serum , Qual 12/27/16 12/27/16 06:15 06:54 WBC RBC Hgb Hct MCV MCH MCHC RDW Plt Count MPV Neutrophils % Lymphocytes % Monocytes % Eosinophils % Basophils % Puncture Site ABG pH ABG pCO2 at Pt Temp ABG pO2 at Pt Temp ABG HCO3 ABG O2 Sat (Measured) ABG O2 Content ABG Base Excess Westley Test O2 Delivery Device Oxygen Flow Rate PEEP Sodium 138 Potassium 3.5 Chloride 104 Carbon Dioxide 25 Anion Gap 9 BUN 6 L Creatinine 0.5 L D Creat Clearance w eGFR > 60 POC Glucometer 116 Random Glucose 104 D Calcium 8.3 L Phosphorus 1.9 L Magnesium 2.3 Total Bilirubin 0.8 D AST 204 H ALT 75 Alkaline Phosphatase 85 Total Protein 6.1 L Albumin 2.7 L Serum , Qual anemia, k WNL Assessment: 12/27/16 08:28 completed alcohol detox, k supplemented, severe anemia Plan: patient may be discharged to day if medically stable after completing [facility] detox and have an appointment scheuled by social work at [facility], give MVI and thiamine medication/prescriptions when discharged.
[2016-12-27] MEDS ORDERED: chlordiazePOXIDE 5 MG CAPSULE PO SCH ×3 (09:00→11:00)
[2016-12-27] MEDS ORDERED: PT OWN MED DRAWER 7, Y5N ONE ×4 (10:36→22:56)
[2016-12-27] MEDS: THIAMINE HCL 100 MG TABLET (FP) PO SCH (10:37)
[2016-12-27] MEDS: PRENATAL VITAMINS W/ FOLIC ACID TABLET (FP) PO SCH (11:50)
--- NOTE | 2016-12-27 15:27 | PN ---
Progress Note, Physician Chief Complaint: ETOH abuse History of Present Illness: awaiting placement in a rehab leukocytosis and anemia noted - Current Medication List Current Medications: Active Medications Acetaminophen (Tylenol -) 325 mg PO Q4H PRN PRN Reason: HEADACHE Benzocaine/Menthol (Cepacol Lozenge -) 1 each MM PRN PRN PRN Reason: SORE THROAT Chlordiazepoxide HCl (Librium -) 25 mg PO ONCE PRN PRN Reason: INSOMNIA Chlordiazepoxide HCl (Librium -) 15 mg PO Q4H PRN PRN Reason: WITHDRAWAL(CONT SUBST) Stop: 12/28/16 09:45 Chlordiazepoxide HCl (Librium -) 10 mg PO 0000,0600,1200,1800 [facility] Stop: 12/28/16 06:01 Last Admin: 12/27/16 11:49 Dose: 10 mg Clonidine (Catapres -) 0.1 mg PO Q12H PRN PRN Reason: HYPERTENSION Heparin Sodium (Porcine) (Heparin -) 5,000 unit SQ TID [facility] Last Admin: 12/27/16 14:31 Dose: 5,000 unit Ondansetron HCl (Zofran Odt -) 8 mg SL Q6H PRN PRN Reason: NAUSEA AND/OR VOMITING Multivit/Folic Acid/Iron ( Vitamins (Sjr) -) 1 tab PO DAILY [facility] Last Admin: 12/27/16 11:50 Dose: 1 tab Thiamine HCl (Vitamin B1 -) 50 mg PO DAILY [facility] Last Admin: 12/27/16 10:37 Dose: 50 mg - Objective Vital Signs: Vital Signs Temperature 97.3 F L 12/27/16 10:28 Pulse Rate 95 H 12/27/16 10:28 Respiratory Rate 20 12/27/16 10:28 Blood Pressure 133/90 12/27/16 10:28 O2 Sat by Pulse Oximetry (%) 100 12/27/16 11:00 Constitutional: Yes: Well Nourished, No Distress, Calm Cardiovascular: Yes: Regular Rate and Rhythm Respiratory: Yes: Regular Neurological: Yes: Alert, Oriented Psychiatric: Yes: Alert, Oriented Labs: CBC, BMP 12/27/16 06:15 12/27/16 06:15 Problem List - Problems (1) Alcohol abuse Assessment/Plan: -On clonidine BID for htn librium for etoh withdrawal THIAMINE FOLIC ACID DETOX CONSULT OUTPATIENT REHAB FOR ETOH DEPENDENCE Code(s): F10.10 - ALCOHOL ABUSE, UNCOMPLICATED (2) Alcohol dependence Code(s): F10.20 - ALCOHOL DEPENDENCE, UNCOMPLICATED Qualifiers: Substance use status: in withdrawal Complication of substance-induced condition: uncomplicated Qualified Code(s): F10.230 - Alcohol dependence with withdrawal, uncomplicated; F10.230 - Alcohol dependence with withdrawal, uncomplicated; F10.230 - Alcohol dependence with withdrawal, uncomplicated (3) Anemia Assessment/Plan: -stool ob -iron profile -vit b 12 -folate -hematology consult Code(s): D64.9 - ANEMIA, UNSPECIFIED (4) Leukocytosis Assessment/Plan: -hematology consult -repeat labs in AM Code(s): D72.829 - ELEVATED WHITE BLOOD CELL COUNT, UNSPECIFIED Assessment/Plan see problem list
--- NOTE | 2016-12-27 15:50 | CONSULT ---
Consult Consult Specialty:: Hematology Reason for Consultation:: Anemia - History of Present Illness History of Present Illness: 46y/o Female patient w/ PmHx: Alcoholism, HLD presents to ED c/o nausea and vomiting and is being treated for alcohol withdrawl. Patient denies abdominal pain, back pain, CP, fever, hematuria, dysuria, hematemesis, rectal bleeding or any other complaints at this time. Hematology consulted for anemia and low white count. Patient seen and examined. At this time, she denies any complains. She feels at her baseline. She denies any chest pain, hemetemesis,melena. No recent weight loss. - History Source History Provided By: Patient, Medical Record Limitations to Obtaining History: No Limitations - Past Medical History [employer]: Yes: Other (No h/o DTs or seizures) Cardio/Vascular: Yes: Hyperlipdemia ...: No Psych: Yes: Depression - Alcohol/Substance Use Hx Alcohol Use: Yes History of Substance Use: reports: None. 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 Home Medications - Allergies Allergies/Adverse Reactions: Allergies Allergy/AdvReac Type Severity Reaction Status Date / Time chocolate flavor Allergy Verified 12/26/16 09:48 fish derived Allergy Verified 12/26/16 09:48 gluten Allergy Verified 12/26/16 09:48 Penicillins Allergy Verified 12/25/16 01:34 shellfish derived Allergy Verified 12/26/16 09:48 nuts Allergy Uncoded 12/26/16 09:48 - Home Medications Home Medications: Ambulatory Orders Vitamins (Sjr) - 1 tab PO DAILY #30 tablet 12/27/16 Thiamine HCl [Vitamin B1 -] 50 mg PO DAILY #30 tablet MDD 1 12/27/16 Family Disease History - Family Disease History Family Disease History: Other: Father (Alcoholism) Review of Systems - Review of Systems Constitutional: reports: Lethargy, Weakness. denies: Diaphoresis, Fever, Unintentional Wgt. Loss HENT: denies: Difficult Swallowing Neck: denies: Decreased ROM, Lumps, Pain on Movement Cardiovascular: denies: Chest Pain, Edema, Palpitations, Shortness of Breath Respiratory: denies: Cough, Exercise Intolerance, Hemoptysis Gastrointestinal: reports: Bloating. denies: Abdominal Pain, Constipation, Diarrhea, Indigestion, Melena, Rectal Bleeding, Vomiting Genitourinary: denies: Burning Neurological: reports: Weakness Physical Exam Vital Signs: Vital Signs Temperature 97.3 F L 12/27/16 10:28 Pulse Rate 95 H 12/27/16 10:28 Respiratory Rate 20 12/27/16 10:28 Blood Pressure 133/90 12/27/16 10:28 O2 Sat by Pulse Oximetry (%) 100 12/27/16 11:00 Constitutional: Yes: Calm, Other (pt slow to talk . In no acute distress) Eyes: Yes: Conjunctiva Clear HENT: Yes: Atraumatic, Normocephalic Neck: Yes: Supple, Trachea Midline Cardiovascular: Yes: Regular Rate and Rhythm Respiratory: Yes: Regular, CTA Bilaterally Gastrointestinal: Yes: Normal Bowel Sounds, Soft, Abdomen, Obese. No: Ascites, Hepatomegaly, Palpable Mass, Pulsatile Mass, Splenomegaly, Tenderness, Tenderness, Epigastrium, Tenderness, Rebound Breast(s): Yes: WNL Extremities: Yes: WNL Edema: No Neurological: Yes: WNL, Oriented Labs: CBC, BMP 12/27/16 06:15 12/27/16 06:15 Imaging - Results Ultrasound: Report Reviewed Assessment/Plan is a 46 year old female admitted with alcohol withdrawal. Alcohol withdrawal Anemia Low normal White count Consulted for Normocytic Normochromic anemia, low normal white count. To compare, we have only from 06/2016. Part of which the counts are low could well possibly be from acute alcohol effect on the bone marrow. Her liver and platelet fn is preserved. Will order iron screening tests, including Thyroid tests, noted stool for occult being negative. She has adequate number of Neutrophils (>2300). The admission labs could be in the setting of hemo-concentration in the setting of n/v/poor po intake. will follow.
[2016-12-27 17:20] LABS: FERRITIN 202.721 ng/ml (6.9-282.5)
[2016-12-28] MEDS: HEPARIN NA (PORCINE) 5,000 UNITS/ML 1ML VIAL SQ SCH ×3 (06:22→21:13)
[2016-12-28] MEDS: chlordiazePOXIDE 5 MG CAPSULE PO SCH (06:22)
[2016-12-28 08:44] LABS: EOSINOPHIL 2.9 % (0-4.5); MCH 26.2 pg (25.7-33.7); MCHC 31.6 g/dl (32.0-36.0); MEAN CELL VOLUME 82.9 fl (80-96); NEUTROPHILS 63.6 % (42.8-82.8); PLATELET COUNT 179 K/MM3 (134-434); RDW 27.1 % (11.6-15.6); WHITE BLOOD COUNT 4.1 K/mm3 (4.0-10.0)
[2016-12-28 09:12] LABS: ALBUMIN 2.8 g/dl (3.4-5.0); ALK PHOS 85 U/L (45-117); ANION GAP 7 (8-16); BILIRUBIN,TOTAL 0.6 mg/dL (0.2-1.0); CALCIUM 8.6 mg/dL (8.5-10.1); CO2 28 mmol/L (21-32); CREATININE 0.5 mg/dL (0.55-1.02); GLUCOSE,RANDOM 96 mg/dL (74-106); LDH 192 U/L (84-246); SGOT/AST 136 U/L (15-37); SGPT/ALT 80 U/L (12-78); TOT PROT 6.5 g/dl (6.4-8.2)
[2016-12-28 09:21] LABS: THYROID STIMULATING HORMONE 0.96 uIU/ml (0.358-3.74)
[2016-12-28] MEDS: PRENATAL VITAMINS W/ FOLIC ACID TABLET (FP) PO SCH (10:44)
[2016-12-28] MEDS: THIAMINE HCL 100 MG TABLET (FP) PO SCH (10:44)
--- NOTE | 2016-12-28 12:26 | PN ---
Progress Note, Physician History of Present Illness: Patient sitting on a chair, denies CP, no SOB, afebrile, not in distress. - Current Medication List Current Medications: Active Medications Acetaminophen (Tylenol -) 325 mg PO Q4H PRN PRN Reason: HEADACHE Benzocaine/Menthol (Cepacol Lozenge -) 1 each MM PRN PRN PRN Reason: SORE THROAT Chlordiazepoxide HCl (Librium -) 25 mg PO ONCE PRN PRN Reason: INSOMNIA Clonidine (Catapres -) 0.1 mg PO Q12H PRN PRN Reason: HYPERTENSION Heparin Sodium (Porcine) (Heparin -) 5,000 unit SQ TID [facility] Last Admin: 12/28/16 06:22 Dose: 5,000 unit Ondansetron HCl (Zofran Odt -) 8 mg SL Q6H PRN PRN Reason: NAUSEA AND/OR VOMITING Multivit/Folic Acid/Iron ( Vitamins (Sjr) -) 1 tab PO DAILY [facility] Last Admin: 12/28/16 10:44 Dose: 1 tab Thiamine HCl (Vitamin B1 -) 50 mg PO DAILY [facility] Last Admin: 12/28/16 10:44 Dose: 50 mg - Objective Vital Signs: Vital Signs Temperature 98.4 F 12/28/16 10:52 Pulse Rate 92 H 12/28/16 10:52 Respiratory Rate 20 12/28/16 10:52 Blood Pressure 116/79 12/28/16 10:52 O2 Sat by Pulse Oximetry (%) 100 12/27/16 21:00 Constitutional: Yes: Well Nourished, No Distress, Calm Eyes: Yes: WNL HENT: Yes: WNL, Atraumatic, Normocephalic Neck: Yes: Supple, Trachea Midline Cardiovascular: Yes: Regular Rate and Rhythm, S1, S2 Respiratory: Yes: Regular, CTA Bilaterally Gastrointestinal: Yes: Normal Bowel Sounds, Soft Edema: No Psychiatric: Yes: Alert, Oriented Labs: CBC, BMP 12/28/16 08:00 12/28/16 08:00 Assessment/Plan Problem List - Problems (1) Alcohol abuse Assessment/Plan: -no signs of ETOH withdrawal -on thiamine and folic acid -on librium -for out patient rehab for ETOH dependence Code(s): F10.10 - ALCOHOL ABUSE, UNCOMPLICATED (2) Alcohol dependence Code(s): F10.20 - ALCOHOL DEPENDENCE, UNCOMPLICATED Qualifiers: Substance use status: in withdrawal Complication of substance-induced condition: uncomplicated Qualified Code(s): F10.230 - Alcohol dependence with withdrawal, uncomplicated; F10.230 - Alcohol dependence with withdrawal, uncomplicated; F10.230 - Alcohol dependence with withdrawal, uncomplicated (3) Anemia Assessment/Plan: -H/H 12/27 --> 8.8/28.3 12/28 --> 8.6/27.2 -hematology consult appreciated Code(s): D64.9 - ANEMIA, UNSPECIFIED (4) Leukopenia Assessment/Plan: -WBC 12/27 --> 3.3 12/28 --> 4.1 -hematology on board -repeat labs in AM Code(s): D72.829 - ELEVATED WHITE BLOOD CELL COUNT, UNSPECIFIED Assessment and Plan: -see problem list
--- NOTE | 2016-12-28 13:56 | PN ---
Progress Note (short form) - Note Progress Note: 46y/o Female patient w/ PmHx: Alcoholism, HLD presents to ED c/o nausea and vomiting and is being treated for alcohol withdrawl. Patient denies abdominal pain, back pain, CP, fever, hematuria, dysuria, hematemesis, rectal bleeding or any other complaints at this time. Hematology consulted for anemia and low white count. Patient seen and examined. At this time, she denies any complains. She feels at her baseline. She denies any chest pain, hemetemesis,melena. No recent weight loss. Vital Signs Period Temp Pulse Resp BP Sys/Metcalf Pulse Ox Last 24 Hr 98 F-98.5 F 73-95 18-20 116-138/79-90 100 Constitutional: Yes: Calm, Other (pt slow to talk . In no acute distress) Eyes: Yes: Conjunctiva Clear HENT: Yes: Atraumatic, Normocephalic Neck: Yes: Supple, Trachea Midline Cardiovascular: Yes: Regular Rate and Rhythm Respiratory: Yes: Regular, CTA Bilaterally Gastrointestinal: Yes: Normal Bowel Sounds, Soft, Abdomen, Obese. No: Ascites, Hepatomegaly, Palpable Mass, Pulsatile Mass, Splenomegaly, Tenderness, Tenderness, Epigastrium, Tenderness, Rebound Breast(s): Yes: WNL Extremities: Yes: WNL Edema: No Neurological: Yes: WNL, Oriented Labs: CBC, BMP 12/28/16 08:00 12/28/16 08:00 Active Medications Generic Name Dose Route Start Last Admin Trade Name Freq PRN Reason Stop Dose Admin Acetaminophen 325 mg 12/26/16 20:26 Tylenol - PO Q4H PRN HEADACHE Benzocaine/Menthol 1 each 12/26/16 20:26 Cepacol Lozenge - MM PRN PRN SORE THROAT Chlordiazepoxide HCl 25 mg 12/26/16 17:36 Librium - PO ONCE PRN INSOMNIA Docusate Sodium 300 mg 12/28/16 22:00 Colace - PO HS MARY Ferrous Sulfate 325 mg 12/28/16 17:30 Feosol - PO TIDCM MARY Heparin Sodium (Porcine) 5,000 unit 12/26/16 22:00 12/28/16 06:22 Heparin - SQ 5,000 unit TID MARY Administration Ondansetron HCl 8 mg 12/26/16 17:37 Zofran Odt - SL Q6H PRN NAUSEA AND/OR VOMITING Multivit/Folic Acid/Iron 1 tab 12/27/16 10:00 12/28/16 10:44 Vitamins (Sjr) - PO 1 tab DAILY MARY Administration Thiamine HCl 50 mg 12/27/16 10:00 12/28/16 10:44 Vitamin B1 - PO 50 mg DAILY MARY Administration Assessment/Plan is a 46 year old female admitted with alcohol withdrawal. Alcohol withdrawal Anemia Low normal White count Consulted for Normocytic Normochromic anemia, low normal white count which is likley due to acute alcoholism B12, Folate -normal and she is on replacement Iron studies are pending
[2016-12-28] MEDS: FERROUS SO4 325 MG TABLET (FP) PO SCH (17:19)
[2016-12-28] MEDS: DOCUSATE SODIUM 100 MG CAPSULE (FP) PO SCH (21:12)
[2016-12-29] MEDS: HEPARIN NA (PORCINE) 5,000 UNITS/ML 1ML VIAL SQ SCH ×3 (05:40→21:29)
[2016-12-29 06:37] LABS: HEP B SURFACE AB Non Reactive (.)
[2016-12-29 08:29] LABS: BASOPHIL 0.8 % (0-2.0); EOSINOPHIL 3.6 % (0-4.5); MCH 26.3 pg (25.7-33.7); MCHC 31.5 g/dl (32.0-36.0); MEAN CELL VOLUME 83.7 fl (80-96); MEAN PLT VOLUME 7.5 fl (7.5-11.1); NEUTROPHILS 61.7 % (42.8-82.8); PLATELET COUNT 199 K/MM3 (134-434); RDW 27.6 % (11.6-15.6); WHITE BLOOD COUNT 4.6 K/mm3 (4.0-10.0)
[2016-12-29 09:00] LABS: ALBUMIN 2.8 g/dl (3.4-5.0); ANION GAP 7 (8-16); BILIRUBIN,TOTAL 0.5 mg/dL (0.2-1.0); CALCIUM 9.2 mg/dL (8.5-10.1); CO2 29 mmol/L (21-32); CREATININE 0.5 mg/dL (0.55-1.02); GLUCOSE,RANDOM 98 mg/dL (74-106); MAGNESIUM 2.2 mg/dL (1.8-2.4); PHOSPHOROUS 1.5 mg/dL (2.5-4.9); SGOT/AST 152 U/L (15-37); SGPT/ALT 88 U/L (12-78); TOT PROT 6.4 g/dl (6.4-8.2)
[2016-12-29 09:01] LABS: ALK PHOS 85 U/L (45-117)
[2016-12-29] MEDS ORDERED: PT OWN MED DRAWER 7, Y5N ONE (09:02)
[2016-12-29] MEDS: THIAMINE HCL 100 MG TABLET (FP) PO SCH (09:10)
[2016-12-29] MEDS: FERROUS SO4 325 MG TABLET (FP) PO SCH ×3 (09:11→17:20)
[2016-12-29] MEDS: PRENATAL VITAMINS W/ FOLIC ACID TABLET (FP) PO SCH (09:12)
--- NOTE | 2016-12-29 12:02 | PN ---
Progress Note, Physician History of Present Illness: Patient sitting on a chair, denies CP, no SOB, afebrile, not in distress. Patient Phos noted at 1.5, will give Neutra Phos - Current Medication List Current Medications: Active Medications Acetaminophen (Tylenol -) 325 mg PO Q4H PRN PRN Reason: HEADACHE Benzocaine/Menthol (Cepacol Lozenge -) 1 each MM PRN PRN PRN Reason: SORE THROAT Chlordiazepoxide HCl (Librium -) 25 mg PO ONCE PRN PRN Reason: INSOMNIA Docusate Sodium (Colace -) 300 mg PO HS [facility] Last Admin: 12/28/16 21:12 Dose: 300 mg Ferrous Sulfate (Feosol -) 325 mg PO TIDCM [facility] Last Admin: 12/29/16 09:11 Dose: 325 mg Heparin Sodium (Porcine) (Heparin -) 5,000 unit SQ TID [facility] Last Admin: 12/29/16 05:40 Dose: 5,000 unit Ondansetron HCl (Zofran Odt -) 8 mg SL Q6H PRN PRN Reason: NAUSEA AND/OR VOMITING Multivit/Folic Acid/Iron ( Vitamins (Sjr) -) 1 tab PO DAILY [facility] Last Admin: 12/29/16 09:12 Dose: 1 tab Thiamine HCl (Vitamin B1 -) 50 mg PO DAILY [facility] Last Admin: 12/29/16 09:10 Dose: 50 mg - Objective Vital Signs: Vital Signs Temperature 98.5 F 12/29/16 09:15 Pulse Rate 98 H 12/29/16 09:15 Respiratory Rate 18 12/29/16 09:15 Blood Pressure 113/78 12/29/16 09:15 O2 Sat by Pulse Oximetry (%) 100 12/29/16 09:00 Constitutional: Yes: No Distress, Calm Eyes: Yes: EOM Intact HENT: Yes: Normocephalic Neck: Yes: Supple, Trachea Midline Cardiovascular: Yes: Regular Rate and Rhythm, S1, S2 Respiratory: Yes: Regular, CTA Bilaterally Gastrointestinal: Yes: Normal Bowel Sounds, Soft Edema: No Neurological: Yes: Alert, Oriented Labs: CBC, BMP 12/29/16 07:40 12/29/16 07:40 Assessment/Plan Problem List - Problems (1) Alcohol abuse Assessment/Plan: -no signs of ETOH withdrawal -on thiamine and folic acid -on librium -for out patient rehab for ETOH dependence Code(s): F10.10 - ALCOHOL ABUSE, UNCOMPLICATED (2) Alcohol dependence Code(s): F10.20 - ALCOHOL DEPENDENCE, UNCOMPLICATED Qualifiers: Substance use status: in withdrawal Complication of substance-induced condition: uncomplicated Qualified Code(s): F10.230 - Alcohol dependence with withdrawal, uncomplicated; F10.230 - Alcohol dependence with withdrawal, uncomplicated; F10.230 - Alcohol dependence with withdrawal, uncomplicated (3) Anemia Assessment/Plan: -H/H stable: 12/27 --> 8.8/28.3 12/28 --> 8.6/27.2 12/29 --> 8.4/26.8 -hematology on board Code(s): D64.9 - ANEMIA, UNSPECIFIED (4) Leukopenia Assessment/Plan: -WBC stable: 12/27 --> 3.3 12/28 --> 4.1 12/29 --> 4.6 -hematology on board Code(s): D72.829 - ELEVATED WHITE BLOOD CELL COUNT, UNSPECIFIED (5) Hypophosphatenemia Assessment/Plan: -Phos at 1.5 -replete PHOS -monitor labs in AM Assessment and Plan: -see problem list
[2016-12-29] MEDS ORDERED: NAPH,MB-DB/K PH,MBDB POWDER PACKET PO ONE (14:00)
[2016-12-29] MEDS: DOCUSATE SODIUM 100 MG CAPSULE (FP) PO SCH (21:29)
[2016-12-30] MEDS: HEPARIN NA (PORCINE) 5,000 UNITS/ML 1ML VIAL SQ SCH (06:29)
--- NOTE | 2016-12-30 06:36 | DS ---
Physical Examination Vital Signs: Vital Signs Temperature 97.9 F 12/30/16 05:57 Pulse Rate 77 12/30/16 05:57 Respiratory Rate 18 12/30/16 05:57 Blood Pressure 113/75 12/30/16 05:57 O2 Sat by Pulse Oximetry (%) 100 12/29/16 21:00 Constitutional: Yes: No Distress Labs: CBC, BMP 12/29/16 07:40 12/29/16 07:40 Discharge Summary Reason For Visit: ALCOHOLIC KETOACIDOSIS, ALCOHOL ABUSE Current Active Problems Alcohol abuse (Acute) Alcohol dependence (Acute) Alcoholic ketoacidosis (Acute) Anemia (Acute) Hypokalemia (Acute) Leukocytosis (Acute) Nausea & vomiting (Acute) Other Procedures: admitted acute etoh withdrawels/ketoacidosis Condition: Improved - Instructions Diet, Activity, Other Instructions: reg [facility] follow with your pmd dr mendoza in 2-3 days for labs/cbc check Referrals: iJmmy Mendoza [Primary Care Provider] - Disposition: VNS/HOME HEALTH CARE - Home Medications Comprehensive Discharge Medication List: Ambulatory Orders Vitamins (Sjr) - 1 tab PO DAILY #30 tablet 12/27/16 Thiamine HCl [Vitamin B1 -] 50 mg PO DAILY #30 tablet MDD 1 12/27/16 Docusate Sodium [Colace -] 300 mg PO HS #30 cap 12/30/16 Ferrous Sulfate [Feosol] 325 mg PO TIDCM #90 tab 12/30/16
[2016-12-30 07:28] LABS: BASOPHIL 0.7 % (0-2.0); EOSINOPHIL 3.8 % (0-4.5); MCH 26.6 pg (25.7-33.7); MCHC 31.5 g/dl (32.0-36.0); MEAN CELL VOLUME 84.3 fl (80-96); MEAN PLT VOLUME 7.5 fl (7.5-11.1); NEUTROPHILS 59.3 % (42.8-82.8); PLATELET COUNT 242 K/MM3 (134-434); RDW 28.7 % (11.6-15.6); WHITE BLOOD COUNT 5.1 K/mm3 (4.0-10.0)
[2016-12-30 07:49] LABS: ANION GAP 7 (8-16); CALCIUM 9.2 mg/dL (8.5-10.1); CO2 28 mmol/L (21-32); CREATININE 0.5 mg/dL (0.55-1.02); GLUCOSE,RANDOM 104 mg/dL (74-106); MAGNESIUM 2.3 mg/dL (1.8-2.4); PHOSPHOROUS 2.4 mg/dL (2.5-4.9)
[2016-12-30] MEDS: FERROUS SO4 325 MG TABLET (FP) PO SCH (08:28)
[2016-12-30] MEDS: THIAMINE HCL 100 MG TABLET (FP) PO SCH (09:32)
[2016-12-30] MEDS ORDERED: PT OWN MED DRAWER 7, Y5N ONE (09:32)
[2016-12-30] MEDS: PRENATAL VITAMINS W/ FOLIC ACID TABLET (FP) PO SCH (09:32)
[2016-12-30 11:07] VITALS: BP 112/70; PULSE 85; TEMP 98.5
[2016-12-31 00:16] LABS: ALBUMIN 3.1 g/dL (2.9-4.4); ALPHA-1-GLOBULIN 0.2 g/dL (0.0-0.4); GAMMA GLOBULIN 1.3 g/dL (0.4-1.8); GLOBULIN, TOTAL 3.2 g/dL (2.2-3.9); M-SPIKE Not Observed g/dL (Not Observed); TOTAL PROTEIN 6.3 g/dL (6.0-8.5)
[2017-01-02 00:06] LABS: SERUM IRON 47 ug/dL (27-159); TOTAL IRON BINDING CAPACITY 243 ug/dL (250-450); UIBC 196 ug/dL (131-425)
== END 2016-12-30 10:27 | disposition home or self-care (01) | DRG 897 ==
LOC: JER 00:35 → JICU 05:07 → J5S 12-26 20:10
PROVIDERS: ADMIT Family Medicine; ATTEND Family Medicine
DX: F10.230 Alcohol dependence with withdrawal, uncomplicated (principal); E87.2 Acidosis; I45.81 Long QT syndrome; K59.00 Constipation, unspecified; F32.9 Major depressive disorder, single episode, unspecified; E16.2 Hypoglycemia, unspecified; R11.2 Nausea with vomiting, unspecified; E78.5 Hyperlipidemia, unspecified; D64.9 Anemia, unspecified; D72.819 Decreased white blood cell count, unspecified; E83.39 Other disorders of phosphorus metabolism
CPT/HCPCS: 36415; 36600; 76705-TC; 80048; 80053; 80076; 80307; 81003; 81015; 82150; 82272; 82375; 82550; 82607; 82728; 82746; 82784; 82803; 83050; 83540; 83550; 83605; 83615; 83690; 83735; 83930; 84100; 84155; 84165; 84439; 84443; 84484; 84703; 85025; 85044; 85651; 86140; 86334; 86704; 86705; 86706; 86803; 90688; 90732; 93005; 93010; 99283-25; G0008; G0009; J1644

== ENCOUNTER 2017-08-12 07:51 | Inpatient (IN) | payer OTHER ==
--- NOTE | 2017-08-12 08:43 | PDOC ---
History of Present Illness - General Chief Complaint: Pain Stated Complaint: CHEST AND ABDOMINAL PAIN Time Seen by Provider: 08/12/17 08:19 History Source: Patient Exam Limitations: No Limitations - History of Present Illness Initial Comments: 08/12/17 08:37 The patient is a 47F with a PMH of alcoholism (last drink yesterday at 1600) and HLD who presents to the ER with abdominal pain. The patient states that she' s had 2 days of worsening abdominal pain which is a sore/pressure in her epigatrium and radiates bilaterally, then down her b/l flanks and down to her groin. The pain also moves superiorly to the patient's chest and around her L breast. She states that her skin hurts to touch. She also admits to nausea and 3 bouts of NBNB vomiting last night. The patient admits to binge drinking over the weekend because she has been stressed out. She denies any exacerbating or alleviating factors. She denies CP, SOB, fever, chills. Past History - Past Medical History Allergies/Adverse Reactions: Allergies Allergy/AdvReac Type Severity Reaction Status Date / Time chocolate flavor Allergy Verified 08/12/17 07:54 fish derived Allergy Verified 08/12/17 07:54 gluten Allergy Verified 08/12/17 07:54 Penicillins Allergy Verified 08/12/17 07:54 shellfish derived Allergy Verified 08/12/17 07:54 nuts Allergy Uncoded 08/12/17 07:54 Home Medications: Ambulatory Orders NK [No Known Home Medication] 08/12/17 COPD: No GI Disorders: Yes (celeiac disease) Hypercholesterolemia: Yes Liver Disease: Yes (high liver enzymes,) - Suicide/Smoking/Psychosocial Hx Smoking History: Never smoked Have you smoked in the past 12 months: No Information on smoking cessation initiated: No Hx Alcohol Use: Yes (daily) Drug/Substance Use Hx: No Substance Use Type: Alcohol Hx Substance Use Treatment: No Review of Systems - Review of Systems Able to Perform ROS?: Yes Comments:: 08/12/17 08:43 GENERAL/CONSTITUTIONAL: No fever or chills. No weakness. HEAD, EYES, EARS, NOSE AND THROAT: No change in vision. No ear pain or discharge. No sore throat. CARDIOVASCULAR: No chest pain, palpitations, or lightheadedness. RESPIRATORY: No cough, wheezing, shortness of breath, or hemoptysis. GASTROINTESTINAL: Positive for nausea, vomiting, and abdominal pain. No diarrhea or constipation. GENITOURINARY: No dysuria, frequency, hematuria, or change in urination. MUSCULOSKELETAL: No joint or muscle swelling or pain. No neck or back pain. SKIN: No rash or lesions. NEUROLOGIC: No headache, numbness, tingling, weakness, loss of consciousness, or change in strength/sensation. ENDOCRINE: No increased thirst. No abnormal weight change. HEMATOLOGIC/LYMPHATIC: No anemia, easy bleeding, or history of blood clots. ALLERGIC/IMMUNOLOGIC: No hives or skin allergy. Is the patient limited Mongolian proficient: No *Physical Exam - Vital Signs Last Vital Signs Temp Pulse Resp BP Pulse Ox 98.6 F 116 H 18 121/101 100 08/12/17 07:56 08/12/17 07:56 08/12/17 07:56 08/12/17 07:56 08/12/17 07:56 - Physical Exam Comments: 08/12/17 08:44 GENERAL: Well developed, well nourished. Awake and alert. No acute distress. HEENT: Normocephalic, atraumatic. Hearing grossly normal. Moist mucous membranes. PERRLA, EOMI. No conjunctival pallor. Sclera are non-icteric. NECK: Supple. Full ROM. CARDIOVASCULAR: Regular rate and rhythm. No murmurs, rubs, or gallops. PULMONARY: No evidence of respiratory distress. Lungs clear to auscultation bilaterally. No wheezing, rales or rhonchi. ABDOMINAL: Diffusely tender and distended abdomen with guarding. GENITOURINARY: B/l CVA tenderness. MUSCULOSKELETAL: Normal range of motion at all joints. No bony deformities or tenderness. EXTREMITIES: No cyanosis. No clubbing. No edema. No calf tenderness or swelling. SKIN: Warm and dry. Normal capillary refill. No rashes. No jaundice. NEUROLOGICAL: Alert, awake, appropriate. Cranial nerves 2-12 intact. Normal speech. PSYCHIATRIC: Cooperative. Good eye contact. Appropriate mood and affect. Heart Score/ECG Review #1 ECG reviewed & interpreted by me at: 08:45 General ECG Interpretation: Sinus Rhythm, Normal Rate, Normal Intervals, No acute ischemic changes Compared to previous ECG there are: No significant change 08/12/17 08:45 NSR Vent rate 98 ID 122 QRS 82 QTc 454 No STD or DAVID. No acute ischemic changes noted. ED Treatment Course - LABORATORY CBC & Chemistry Diagram: 08/12/17 08:45 08/12/17 08:45 Medical Decision Making - Medical Decision Making 08/12/17 08:46 The patient is a 47F with a PMH of alcoholism and HLD who presents to the ER with diffuse abdominal pain. The patient states she was tender and had guarding diffusely throughout her abdomen. Due to her diffuse tenderness, I will order labs and a CT of her abdomen. Pending labs/imaging. I am concerned for pancreatitis. 08/12/17 10:02 Lipase of 4119. Slightly elevated AST. CTAP cancelled as diagnosis is shown by lipase. Pt is NPO and will give IVF. Paged Dr. Callahan for admission for Dr. Torres. 08/12/17 11:25 I have endorsed the patient to Dr. Callahan for admission. *DC/Admit/Observation/Transfer Diagnosis at time of Disposition: Pancreatitis Qualifiers: Chronicity: acute Pancreatitis type: alcohol induced Acute pancreatitis complication: unspecified Qualified Code(s): K85.20 - Alcohol induced acute pancreatitis without necrosis or infection - Discharge Dispostion Disposition: HOME Condition at time of disposition: Stable Decision to Admit order: Yes - Referrals Referrals: Jimmy Torres [Primary Care Provider] - - Patient Instructions - Post Discharge Activity
[2017-08-12 08:55] LABS: BASO % 0.5 % (0-2.0); HEMATOCRIT 37.2 % (32.4-45.2); HEMOGLOBIN 11.9 GM/dL (10.7-15.3); MCH 31.2 pg (25.7-33.7); MCHC 32.1 g/dl (32.0-36.0); MEAN CELL VOLUME 97.3 fl (80-96); MEAN PLT VOLUME 7.3 fl (7.5-11.1); MONO % 10.9 % (3.8-10.2); NEUT % 83.6 % (42.8-82.8); PLATELET COUNT 206 K/MM3 (134-434); RBC 3.82 M/mm3 (3.60-5.2); WHITE BLOOD COUNT 6.9 K/mm3 (4.0-10.0)
[2017-08-12 09:27] LABS: ALBUMIN 3.7 g/dl (3.4-5.0); ALK PHOS 105 U/L (45-117); ANION GAP 20 (8-16); BILIRUBIN,TOTAL 1.6 mg/dL (0.2-1.0); BLOOD UREA NITROGEN 6 mg/dL (7-18); CALCIUM 8.8 mg/dL (8.5-10.1); CO2 14 mmol/L (21-32); CREATININE 1.1 mg/dL (0.55-1.02); GLUCOSE,RANDOM 84 mg/dL (74-106); SGPT/ALT 70 U/L (12-78); SODIUM 133 mmol/L (136-145)
[2017-08-12 09:40] LABS: POTASSIUM 4.5 mmol/L (3.5-5.1)
[2017-08-12 09:41] LABS: CHLORIDE 99 mmol/L (98-107); SGOT/AST 81 U/L (15-37)
[2017-08-12 09:43] LABS: INR 1.01 (0.82-1.09); PROTHROMBIN TIME (PATIENT) 11.4 SEC (9.7-13.0)
[2017-08-12] MEDS ORDERED: SODIUM CHLORIDE 0.9% 1000 ML INFUS.BAG IV ONE (10:09)
[2017-08-12 10:39] LABS: URINE APPEARANCE CLEAR; URINE BLOOD NEGATIVE (NEGATIVE); URINE GLUCOSE (UA) NEGATIVE (NEGATIVE); URINE KETONE 2+ (NEGATIVE); URINE LEUK ESTERASE NEGATIVE (NEGATIVE); URINE NITRITE NEGATIVE (NEGATIVE)
[2017-08-12] MEDS ORDERED: morphine CARPU-JECT 4 MG/1 ML DISP.SYRIN IVPUSH ONE (10:40)
[2017-08-12] MEDS ORDERED: chlordiazePOXIDE HCL 25 MG CAPSULE PO ONE (10:40)
--- NOTE | 2017-08-12 10:50 | PDOC ---
Attending Attestation - Resident Resident Name: Bacilio Ramirez - ED Attending Attestation I have performed the following: I have examined & evaluated the patient, The case was reviewed & discussed with the resident, I agree w/resident's findings & plan - HPI HPI: 08/12/17 10:47 47-year-old female with history of alcoholic pancreatitis presents with abdominal pain/nausea/vomiting in the setting of binge drinking this weekend. - Physicial Exam PE: 08/12/17 10:50 Tachycardia, afebrile Tender abdomen as noted Dry mucosa No evidence of withdrawal other than tachycardia, - Medical Decision Making 08/12/17 10:53 47-year-old female with abdominal pain/nausea/vomiting in the setting of alcohol binge. Question alcohol acidosis, question early withdrawal, question recurrence of her pancreatitis. Labs notable for markedly elevated lipase with otherwise normal white count and glucose and LFTs IV fluids, pain control Admission Heart Score/ECG Review #1 ECG reviewed & interpreted by me at: 08:05 General ECG Interpretation: Sinus Rhythm, Normal Rate (98), Normal Intervals ( qtc 454), No acute ischemic changes
[2017-08-12 10:51] LABS: URINE COLOR DK YELLOW; URINE PROTEIN 2+ (NEGATIVE)
[2017-08-12 10:52] LABS: EPI CELLS RARE /HPF (FEW); URINE HYALINE CAST 16 /lpf; URINE MUCUS RARE
[2017-08-12] MEDS ORDERED: chlordiazePOXIDE HCL 25 MG CAPSULE ONE (10:55)
[2017-08-12] MEDS ORDERED: morphine CARPU-JECT 2 MG/1 ML DISP.SYRIN ONE (10:55)
[2017-08-12] MEDS ORDERED: ONDANSETRON 4 MG/2 ML VIAL IVPUSH ONE (11:02)
[2017-08-12] MEDS ORDERED: ONDANSETRON 4 MG/2 ML VIAL ONE (11:02)
--- NOTE | 2017-08-12 12:19 | HP ---
Admitting History and Physical - Primary Care Physician PCP: Jimmy Torres - Admission History of Present Illness: The patient is a 47F with a PMH of alcoholism (last drink yesterday at 1600) and HLD who presents to the ER with abdominal pain. The patient states that she' s had 2 days of worsening abdominal pain which is a sore/pressure in her epigatrium and radiates bilaterally, then down her b/l flanks and down to her groin. The pain also moves superiorly to the patient's chest and around her L breast. She states that her skin hurts to touch. She also admits to nausea and 3 bouts of NBNB vomiting last night. The patient admits to binge drinking over the weekend because she has been stressed out. She denies any exacerbating or alleviating factors. She denies CP, SOB, fever, chills. 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 Home Medications - Allergies Allergies/Adverse Reactions: Allergies Allergy/AdvReac Type Severity Reaction Status Date / Time chocolate flavor Allergy Verified 08/12/17 07:54 fish derived Allergy Verified 08/12/17 07:54 gluten Allergy Verified 08/12/17 07:54 Penicillins Allergy Verified 08/12/17 07:54 shellfish derived Allergy Verified 08/12/17 07:54 nuts Allergy Uncoded 08/12/17 07:54 - Home Medications Home Medications: Ambulatory Orders NK [No Known Home Medication] 08/12/17 Family Disease History - Family Disease History Family Disease History: Other: Father (Alcoholism) Review of Systems - Review of Systems Gastrointestinal: reports: Abdominal Pain, Nausea Physical Examination Vital Signs: Vital Signs Temperature 98.6 F 08/12/17 07:56 Pulse Rate 116 H 08/12/17 07:56 Respiratory Rate 18 08/12/17 07:56 Blood Pressure 121/101 08/12/17 07:56 O2 Sat by Pulse Oximetry (%) 100 05/29/18 07:56 Constitutional: Yes: Mild Distress Neck: Yes: Trachea Midline Cardiovascular: Yes: Regular Rate and Rhythm, S1, S2 Respiratory: Yes: CTA Bilaterally, Diminished (at bases) Gastrointestinal: Yes: Tenderness (in both right and left upper quadrant) Edema: No Neurological: Yes: Alert, Oriented Labs: CBC, BMP 08/12/17 08:45 08/12/17 08:45 Problem List - Problems (1) Pancreatitis Assessment/Plan: most likely to alcohol abuse ct scan iv fluids pain control NPO for now GI eval zofran for nausea will monitor potassium and magnesium dvt ppx Code(s): K85.90 - ACUTE PANCREATITIS WITHOUT NECROSIS OR INFECTION, UNSP Qualifiers: Chronicity: acute Pancreatitis type: alcohol induced Acute pancreatitis complication: unspecified Qualified Code(s): K85.20 - Alcohol induced acute pancreatitis without necrosis or infection (2) Alcohol abuse Assessment/Plan: thimaine vitamins with folate detox skyler librium Code(s): F10.10 - ALCOHOL ABUSE, UNCOMPLICATED
--- NOTE | 2017-08-12 13:31 | EKG ---
Test Reason : Blood Pressure : / mmHG Vent. Rate : 098 BPM Atrial Rate : 098 BPM P-R Int : 122 ms QRS Dur : 082 ms QT Int : 356 ms P-R-T Axes : 076 010 052 degrees QTc Int : 454 ms NORMAL SINUS RHYTHM NORMAL ECG Confirmed by MD Angulo Edward ([id number]) on 08/12/2017 1:31:11 PM Referred By: Confirmed By:Marcel Angulo MD
[2017-08-12] MEDS ORDERED: ONDANSETRON 4 MG/2 ML VIAL IVPUSH PRN (14:45)
[2017-08-12] MEDS ORDERED: morphine CARPU-JECT 4 MG/1 ML DISP.SYRIN IVPUSH PRN (14:45)
[2017-08-12] MEDS ORDERED: morphine SULFATE 4 MG/ML VIAL IVPUSH PRN (14:48)
--- NOTE | 2017-08-12 16:29 | CONSULT ---
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 47 yo f with alcohol use diosrder admitted with pancreatitis , started on libirum taper which she is tolerating. cont , fluids, vitmains. refer for inpaten rehab when medicallys table ro intensive outpatient care. - Medication Detox Regimen/Protocol: Librium
[2017-08-12 16:30] LABS: ANION GAP 15 (8-16); BLOOD UREA NITROGEN 5 mg/dL (7-18); CALCIUM 7.9 mg/dL (8.5-10.1); CHLORIDE 104 mmol/L (98-107); CO2 17 mmol/L (21-32); GLUCOSE,RANDOM 76 mg/dL (74-106); POTASSIUM 3.5 mmol/L (3.5-5.1); SODIUM 136 mmol/L (136-145)
[2017-08-12] MEDS ORDERED: chlordiazePOXIDE HCL 25 MG CAPSULE PO PRN (16:30)
[2017-08-12 16:44] VITALS: BMI 21.2
[2017-08-12] MEDS: SODIUM CHLORIDE 1,000 ML IV SCH (17:19)
[2017-08-12] MEDS: chlordiazePOXIDE HCL 25 MG CAPSULE PO SCH ×2 (17:20→22:27)
--- NOTE | 2017-08-12 19:43 | CON.GI ---
Consult Consult Specialty:: GI Reason for Consultation:: acute pancreatitis, alcoholic - History of Present Illness History of Present Illness: chart reviewed. Events noted. As per initial intake:The patient is a 47F with a PMH of alcoholism (last drink yesterday at 1600) and HLD who presents to the ER with abdominal pain. The patient states that she's had 2 days of worsening abdominal pain which is a sore/pressure in her epigatrium and radiates bilaterally, then down her b/l flanks and down to her groin. The pain also moves superiorly to the patient's chest and around her L breast. She states that her skin hurts to touch. She also admits to nausea and 3 bouts of NBNB vomiting last night. The patient admits to binge drinking over the weekend because she has been stressed out. She denies any exacerbating or alleviating factors. She denies CP, SOB, fever, chills. On admission Lipase in 4000s. Normal white count, mildly elevated total bili, AST, normal ALT, alk phos. BUN and creatinine are essentially normal. Afebrile, with normal T-max and normal blood pressure since admission up until now. BUN and creatinine are essentially normal. At the time of this encounter the patient does not appear toxic, or in distress. Cachectic, awake, alert. Corroborates drinking prior to coming in with abdominal pain. Reports prior episodes of the same. 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 Home Medications - Allergies Allergies/Adverse Reactions: Allergies Allergy/AdvReac Type Severity Reaction Status Date / Time chocolate flavor Allergy Verified 08/12/17 07:54 fish derived Allergy Verified 08/12/17 07:54 gluten Allergy Verified 08/12/17 07:54 Penicillins Allergy Verified 08/12/17 07:54 shellfish derived Allergy Verified 08/12/17 07:54 nuts Allergy Uncoded 08/12/17 07:54 - Home Medications Home Medications: Ambulatory Orders NK [No Known Home Medication] 08/12/17 Family Disease History - Family Disease History Family Disease History: Other: Father (Alcoholism) Review of Systems Findings/Remarks: Aspirin H&P and HPI Physical Exam-GI Vital Signs: Vital Signs Temperature 98.1 F 08/12/17 18:58 Pulse Rate 82 08/12/17 18:58 Respiratory Rate 18 08/12/17 18:58 Blood Pressure 130/82 08/12/17 18:58 O2 Sat by Pulse Oximetry (%) 97 08/12/17 16:15 Constitutional: Yes: Calm, Cachectic, Thin Eyes: Yes: Conjunctiva Clear HENT: Yes: Atraumatic Neck: Yes: Supple Cardiovascular: Yes: Regular Rate and Rhythm Respiratory: Yes: Regular Labs: CBC, BMP 08/12/17 08:45 08/12/17 15:40 INR, PTT INR 1.01 (0.82-1.09) 08/12/17 08:45 Problem List - Problems (1) Alcoholic pancreatitis Code(s): K85.20 - ALCOHOL INDUCED ACUTE PANCREATITIS WITHOUT NECROSIS OR INFCT (2) Pancreatitis Code(s): K85.90 - ACUTE PANCREATITIS WITHOUT NECROSIS OR INFECTION, UNSP Qualifiers: Chronicity: acute Pancreatitis type: alcohol induced Acute pancreatitis complication: unspecified Qualified Code(s): K85.20 - Alcohol induced acute pancreatitis without necrosis or infection (3) Alcohol abuse Code(s): F10.10 - ALCOHOL ABUSE, UNCOMPLICATED (4) Alcohol dependence Code(s): F10.20 - ALCOHOL DEPENDENCE, UNCOMPLICATED Qualifiers: Substance use status: in withdrawal Complication of substance-induced condition: uncomplicated Qualified Code(s): F10.230 - Alcohol dependence with withdrawal, uncomplicated Assessment/Plan a 47-year-old female with what appears to be mild alcoholic pancreatitis without other organ system involvement. Agree with current management. aggressive IV hydration at 2002 150 mL/h, antiemetics, pain management when necessary. Obtain ultrasound of the liver. CBC, CMP in a.m. Clear liquid diet as tolerated. Substance withdrawal protocol, counseling.
[2017-08-12 20:10] LABS: COCAINE, UR NEGATIVE ng/ml (CUTOFF=300); METHADONE, UR NEGATIVE ng/ml (CUTOFF=300); PHENCYCLIDINE,URINE NEGATIVE ng/ml (CUTOFF=25); URINE AMPHETAMINES NEGATIVE ng/ml (CUTOFF=500); URINE BARBITURATES NEGATIVE ng/ml (CUTOFF=200); URINE BENZODIAZEPINES NEGATIVE ng/ml (CUTOFF=200)
[2017-08-12 20:13] LABS: OPIATES, URI POSITIVE ng/ml (CUTOFF=300)
[2017-08-12] MEDS: HEPARIN NA (PORCINE) 5,000 UNITS/ML 1ML VIAL SQ SCH (21:44)
[2017-08-12] MEDS: THIAMINE HCL 100 MG TABLET (FP) PO SCH (21:44)
[2017-08-13] MEDS: chlordiazePOXIDE HCL 25 MG CAPSULE PO SCH ×4 (05:46→22:53)
[2017-08-13 08:08] LABS: CHLORIDE 104 mmol/L (98-107); POTASSIUM 3.3 mmol/L (3.5-5.1); SODIUM 137 mmol/L (136-145)
[2017-08-13 08:18] LABS: INR 1.05 (0.82-1.09); PROTHROMBIN TIME (PATIENT) 11.9 SEC (9.7-13.0)
[2017-08-13 08:21] LABS: ACTIVATED PTT 30.3 SECONDS (26.9-34.4)
[2017-08-13 08:22] LABS: ALBUMIN 2.9 g/dl (3.4-5.0); ALK PHOS 79 U/L (45-117); AMYLASE 254 U/L (25-115); ANION GAP 12 (8-16); BILIRUBIN,TOTAL 1.2 mg/dL (0.2-1.0); BLOOD UREA NITROGEN 5 mg/dL (7-18); CO2 21 mmol/L (21-32); CREATININE 0.8 mg/dL (0.55-1.02); GLUCOSE,RANDOM 70 mg/dL (74-106); MAGNESIUM 1.8 mg/dL (1.8-2.4); N-TERMINAL BNP 40.45 pg/ml (5-125); PHOSPHOROUS 1.7 mg/dL (2.5-4.9); SGOT/AST 44 U/L (15-37); SGPT/ALT 43 U/L (12-78); TOT PROT 6.2 g/dl (6.4-8.2)
[2017-08-13 08:28] LABS: LIPASE 4391 U/L (73-393)
[2017-08-13] MEDS: SODIUM CHLORIDE 1,000 ML IV SCH ×3 (08:44→22:56)
[2017-08-13] MEDS ORDERED: THIAMINE HCL 200 MG/2 ML VIAL IM SCH (10:00)
[2017-08-13] MEDS ORDERED: THIAMINE HCL 100 MG TABLET (FP) PO SCH (10:00)
[2017-08-13 10:28] LABS: BASO % 0.4 % (0-2.0); EOS % 1.4 % (0-4.5); HEMATOCRIT 28.3 % (32.4-45.2); HEMOGLOBIN 9.3 GM/dL (10.7-15.3); LYMPH % 10.6 % (8-40); MCHC 32.9 g/dl (32.0-36.0); MEAN CELL VOLUME 97.3 fl (80-96); MEAN PLT VOLUME 7.9 fl (7.5-11.1); MONO % 6.9 % (3.8-10.2); NEUT % 80.7 % (42.8-82.8); PLATELET COUNT 138 K/MM3 (134-434); RBC 2.91 M/mm3 (3.60-5.2); RDW 25.7 % (11.6-15.6); WHITE BLOOD COUNT 4.3 K/mm3 (4.0-10.0)
--- NOTE | 2017-08-13 11:32 | PN ---
Progress Note, Physician History of Present Illness: Had a CAT scan of the abdomen last night, Suggestive of acute pancreatitis and fatty liver. Appears comfortable. Not in pain, or discomfort. - Current Medication List Current Medications: Active Medications Chlordiazepoxide HCl (Librium -) 25 mg PO [id number] [facility] Stop: 08/14/17 11:01 Chlordiazepoxide HCl (Librium -) 15 mg PO [id number] [facility] Stop: 08/15/17 11:01 Chlordiazepoxide HCl (Librium -) 25 mg PO Q4H PRN PRN Reason: WITHDRAWAL(CONT SUBST) Stop: 08/15/17 16:29 Heparin Sodium (Porcine) (Heparin -) 5,000 unit SQ BID [facility] Last Admin: 08/12/17 21:44 Dose: 5,000 unit Sodium Chloride (Normal Saline -) 1,000 mls @ 75 mls/hr IV ASDIR [facility] Last Admin: 08/13/17 08:44 Dose: 75 mls/hr Morphine Sulfate (Morphine Sulfate) 4 mg IVPUSH Q6H PRN PRN Reason: PAIN LEVEL 7 - 10 Last Admin: 08/12/17 17:20 Dose: 4 mg Ondansetron HCl (Zofran Injection) 4 mg IVPUSH Q6H PRN PRN Reason: NAUSEA Multivit/Folic Acid/Iron ( Vitamins (Sjr) -) 1 tab PO DAILY [facility] Thiamine HCl (Vitamin B1 -) 100 mg PO HS [facility] Last Admin: 08/12/17 21:44 Dose: 100 mg - Objective Vital Signs: Vital Signs Temperature 97.9 F 08/13/17 05:31 Pulse Rate 89 08/13/17 05:31 Respiratory Rate 18 08/13/17 05:31 Blood Pressure 110/76 08/13/17 05:31 O2 Sat by Pulse Oximetry (%) 98 08/13/17 08:05 Constitutional: Yes: Calm Eyes: No: Sclera Icterus Cardiovascular: No: Bradycardia, Tachycardia Respiratory: Yes: Regular Gastrointestinal: Yes: Normal Bowel Sounds, Soft. No: Distention, Tenderness Neurological: Yes: Alert Labs: CBC, BMP 08/13/17 06:00 08/13/17 06:00 INR, PTT INR 1.05 (0.82-1.09) 08/13/17 06:00 Laboratory Last Values WBC 4.3 K/mm3 (4.0-10.0) D 08/13/17 06:00 RBC 2.91 M/mm3 (3.60-5.2) L D 08/13/17 06:00 Hgb 9.3 GM/dL (10.7-15.3) L D 08/13/17 06:00 Hct 28.3 % (32.4-45.2) L D 08/13/17 06:00 MCV 97.3 fl (80-96) H 08/13/17 06:00 MCH 32.0 pg (25.7-33.7) 08/13/17 06:00 MCHC 32.9 g/dl (32.0-36.0) 08/13/17 06:00 RDW 25.7 % (11.6-15.6) H 08/13/17 06:00 Plt Count 138 K/MM3 (134-434) D 08/13/17 06:00 MPV 7.9 fl (7.5-11.1) 08/13/17 06:00 Neutrophils % 80.7 % (42.8-82.8) 08/13/17 06:00 Lymphocytes % 10.6 % (8-40) D 08/13/17 06:00 Monocytes % 6.9 % (3.8-10.2) 08/13/17 06:00 Eosinophils % 1.4 % (0-4.5) D 08/13/17 06:00 Basophils % 0.4 % (0-2.0) 08/13/17 06:00 Nucleated RBC % 0 % (0-0) 08/13/17 06:00 PT with INR 11.90 SEC (9.7-13.0) 08/13/17 06:00 INR 1.05 (0.82-1.09) 08/13/17 06:00 PTT (Actin FS) 30.3 SECONDS (26.9-34.4) 08/13/17 06:00 Sodium 137 mmol/L (136-145) 08/13/17 06:00 Potassium 3.3 mmol/L (3.5-5.1) L 08/13/17 06:00 Chloride 104 mmol/L (98-107) 08/13/17 06:00 Carbon Dioxide 21 mmol/L (21-32) 08/13/17 06:00 Anion Gap 12 (8-16) 08/13/17 06:00 BUN 5 mg/dL (7-18) L 08/13/17 06:00 Creatinine 0.8 mg/dL (0.55-1.02) 08/13/17 06:00 Creat Clearance w eGFR > 60 (>60) 08/13/17 06:00 Random Glucose 70 mg/dL (74-106) L 08/13/17 06:00 Calcium 8.0 mg/dL (8.5-10.1) L 08/13/17 06:00 Phosphorus 1.7 mg/dL (2.5-4.9) L 08/13/17 06:00 Magnesium 1.8 mg/dL (1.8-2.4) 08/13/17 06:00 Total Bilirubin 1.2 mg/dL (0.2-1.0) H D 08/13/17 06:00 AST 44 U/L (15-37) H 08/13/17 06:00 ALT 43 U/L (12-78) 08/13/17 06:00 Alkaline Phosphatase 79 U/L (45-117) 08/13/17 06:00 Creatine Kinase 52 IU/L (26-192) 08/12/17 08:45 Troponin I < 0.02 ng/ml (0.00-0.05) 08/12/17 08:45 B-Natriuretic Peptide 40.45 pg/ml (5-125) 08/13/17 06:00 Total Protein 6.2 g/dl (6.4-8.2) L 08/13/17 06:00 Albumin 2.9 g/dl (3.4-5.0) L 08/13/17 06:00 Total Amylase 254 U/L (25-115) H 08/13/17 06:00 Lipase 4391 U/L (73-393) H 08/13/17 06:00 Serum , Qual Negative 08/12/17 08:45 Urine Color Dk yellow 08/12/17 10:22 Urine Appearance Clear 08/12/17 10:22 Urine pH 6.0 (5.0-8.0) 08/12/17 10:22 Ur Specific [place] 1.025 (1.001-1.035) 08/12/17 10:22 Urine Protein 2+ (NEGATIVE) H 08/12/17 10:22 Urine Glucose (UA) Negative (NEGATIVE) 08/12/17 10:22 Urine Ketones 2+ (NEGATIVE) H 08/12/17 10:22 Urine Blood Negative (NEGATIVE) 08/12/17 10:22 Urine Nitrite Negative (NEGATIVE) 08/12/17 10:22 Urine Bilirubin 2.0 (<2.0 mg/dL) 08/12/17 10:22 Urine Urobilinogen 2.0 mg/dL (0.2-1.0) H 08/12/17 10:22 Ur Leukocyte Esterase Negative (NEGATIVE) 08/12/17 10:22 Urine WBC (Auto) 4 /hpf (3-5) 08/12/17 10:22 Urine RBC (Auto) 1 /hpf (0-3) 08/12/17 10:22 Ur Epithelial Cells Rare /HPF (FEW) 08/12/17 10:22 Hyaline Casts 16 /lpf 08/12/17 10:22 Urine Mucus Rare 08/12/17 10:22 Urine HCG, Qual Negative 08/12/17 18:50 Opiates Screen Positive ng/ml (JYGNYG=697) 08/12/17 18:50 Methadone Screen Negative ng/ml (LJCXQE=555) 08/12/17 18:50 Barbiturate Screen Negative ng/ml (ONDGLI=055) 08/12/17 18:50 Phencyclidine Screen Negative ng/ml (CUTOFF=25) 08/12/17 18:50 Ur Amphetamines Screen Negative ng/ml (RLZPPD=884) 08/12/17 18:50 MDMA (Ecstasy) Screen Negative ng/ml (KMJSRF=322) 08/12/17 18:50 Benzodiazepines Screen Negative ng/ml (VOJOFP=559) 08/12/17 18:50 Cocaine Screen Negative ng/ml (KDWGLF=219) 08/12/17 18:50 U Marijuana (THC) Screen Negative ng/ml (CUTOFF=50) 08/12/17 18:50 Alcohol, Quantitative < 5.0 mg/dL (0.0-5.0) 08/12/17 08:45 - ....Imaging Cat Scan: Report Reviewed Problem List - Problems (1) Alcoholic pancreatitis Code(s): K85.20 - ALCOHOL INDUCED ACUTE PANCREATITIS WITHOUT NECROSIS OR INFCT (2) Pancreatitis Code(s): K85.90 - ACUTE PANCREATITIS WITHOUT NECROSIS OR INFECTION, UNSP Qualifiers: Chronicity: acute Pancreatitis type: alcohol induced Acute pancreatitis complication: unspecified Qualified Code(s): K85.20 - Alcohol induced acute pancreatitis without necrosis or infection (3) Alcohol abuse Code(s): F10.10 - ALCOHOL ABUSE, UNCOMPLICATED (4) Alcohol dependence Code(s): F10.20 - ALCOHOL DEPENDENCE, UNCOMPLICATED Qualifiers: Substance use status: in withdrawal Complication of substance-induced condition: uncomplicated Qualified Code(s): F10.230 - Alcohol dependence with withdrawal, uncomplicated Assessment/Plan Agree with current management. aggressive IV hydration at 2002 150 mL/h, antiemetics, pain management when necessary. Clear liquid diet as tolerated. Substance withdrawal protocol, counseling.
[2017-08-13] MEDS: HEPARIN NA (PORCINE) 5,000 UNITS/ML 1ML VIAL SQ SCH ×2 (12:26→22:53)
[2017-08-13] MEDS: PRENATAL VITAMINS W/ FOLIC ACID TABLET (FP) PO SCH (12:26)
--- NOTE | 2017-08-13 13:13 | PN ---
Progress Note, Physician Chief Complaint: Alcoholic pancreatitis History of Present Illness: NAD,feeling better wants to eat abdominal pain improved no N/V Seen by GI - Current Medication List Current Medications: Active Medications Chlordiazepoxide HCl (Librium -) 25 mg PO [id number] [facility] Stop: 08/14/17 11:01 Chlordiazepoxide HCl (Librium -) 15 mg PO [id number] [facility] Stop: 08/15/17 11:01 Chlordiazepoxide HCl (Librium -) 25 mg PO Q4H PRN PRN Reason: WITHDRAWAL(CONT SUBST) Stop: 08/15/17 16:29 Heparin Sodium (Porcine) (Heparin -) 5,000 unit SQ BID [facility] Last Admin: 08/13/17 12:26 Dose: 5,000 unit Sodium Chloride (Normal Saline -) 1,000 mls @ 75 mls/hr IV ASDIR [facility] Last Admin: 08/13/17 08:44 Dose: 75 mls/hr Morphine Sulfate (Morphine Sulfate) 4 mg IVPUSH Q6H PRN PRN Reason: PAIN LEVEL 7 - 10 Last Admin: 08/12/17 17:20 Dose: 4 mg Ondansetron HCl (Zofran Injection) 4 mg IVPUSH Q6H PRN PRN Reason: NAUSEA Multivit/Folic Acid/Iron ( Vitamins (Sjr) -) 1 tab PO DAILY [facility] Last Admin: 08/13/17 12:26 Dose: 1 tab Thiamine HCl (Vitamin B1 -) 100 mg PO HS [facility] Last Admin: 08/12/17 21:44 Dose: 100 mg - Objective Vital Signs: Vital Signs Temperature 97.9 F 08/13/17 05:31 Pulse Rate 89 08/13/17 05:31 Respiratory Rate 18 08/13/17 05:31 Blood Pressure 110/76 08/13/17 05:31 O2 Sat by Pulse Oximetry (%) 98 08/13/17 08:05 Constitutional: Yes: Well Nourished, No Distress, Calm Cardiovascular: Yes: Regular Rate and Rhythm Respiratory: Yes: Regular Gastrointestinal: Yes: Normal Bowel Sounds, Soft, Tenderness (epigastric, mild) Musculoskeletal: Yes: WNL Extremities: Yes: WNL Edema: No Peripheral Pulses WNL: Yes Neurological: Yes: Alert, Oriented Psychiatric: Yes: Alert, Oriented Labs: CBC, BMP 08/13/17 06:00 08/13/17 06:00 INR, PTT INR 1.05 (0.82-1.09) 08/13/17 06:00 Problem List - Problems (1) Alcoholic pancreatitis Assessment/Plan: -librium protocol seen by [facility] IVF Tolerating clear liquids pain management will go to Detox after d/c PT eval DVT prophylaxis Code(s): K85.20 - ALCOHOL INDUCED ACUTE PANCREATITIS WITHOUT NECROSIS OR INFCT Assessment/Plan see problem list
[2017-08-13] MEDS ORDERED: POTASSIUM CHLORIDE TABS 20 MEQ TABLET.ER (FP) PO ONE ×2 (16:15→18:30)
[2017-08-13] MEDS: THIAMINE HCL 100 MG TABLET (FP) PO SCH (22:53)
[2017-08-14] MEDS: chlordiazePOXIDE HCL 25 MG CAPSULE PO SCH ×2 (06:07→12:26)
[2017-08-14 07:41] LABS: ALBUMIN 2.6 g/dl (3.4-5.0); ANION GAP 8 (8-16); CHLORIDE 108 mmol/L (98-107); CO2 25 mmol/L (21-32); CREATININE 0.6 mg/dL (0.55-1.02); GLUCOSE,RANDOM 81 mg/dL (74-106); POTASSIUM 3.2 mmol/L (3.5-5.1); SGOT/AST 39 U/L (15-37); SGPT/ALT 35 U/L (12-78); SODIUM 141 mmol/L (136-145)
[2017-08-14 07:46] LABS: ALK PHOS 75 U/L (45-117); BILIRUBIN,TOTAL 0.7 mg/dL (0.2-1.0); TOT PROT 5.9 g/dl (6.4-8.2)
[2017-08-14 07:51] LABS: BLOOD UREA NITROGEN 3 mg/dL (7-18)
[2017-08-14 07:55] LABS: BASO % 0.8 % (0-2.0); EOS % 2.3 % (0-4.5); HEMATOCRIT 27.3 % (32.4-45.2); HEMOGLOBIN 9.1 GM/dL (10.7-15.3); LYMPH % 22.7 % (8-40); MCH 32.3 pg (25.7-33.7); MCHC 33.5 g/dl (32.0-36.0); MEAN CELL VOLUME 96.4 fl (80-96); MEAN PLT VOLUME 7.9 fl (7.5-11.1); MONO % 6.7 % (3.8-10.2); NEUT % 67.5 % (42.8-82.8); PLATELET COUNT 130 K/MM3 (134-434); RBC 2.83 M/mm3 (3.60-5.2); RDW 25.3 % (11.6-15.6); WHITE BLOOD COUNT 3.9 K/mm3 (4.0-10.0)
[2017-08-14] MEDS: PRENATAL VITAMINS W/ FOLIC ACID TABLET (FP) PO SCH (09:46)
[2017-08-14] MEDS: HEPARIN NA (PORCINE) 5,000 UNITS/ML 1ML VIAL SQ SCH ×2 (09:47→21:03)
--- NOTE | 2017-08-14 11:10 | PN ---
Progress Note, Physician Chief Complaint: Alcoholic pancreatitis History of Present Illness: NAD,feeling better regular diet abdominal pain improved no N/V Seen by GI - Current Medication List Current Medications: Active Medications Chlordiazepoxide HCl (Librium -) 15 mg PO [id number] [facility] Stop: 08/15/17 11:01 Chlordiazepoxide HCl (Librium -) 25 mg PO Q4H PRN PRN Reason: WITHDRAWAL(CONT SUBST) Stop: 08/15/17 16:29 Heparin Sodium (Porcine) (Heparin -) 5,000 unit SQ BID [facility] Last Admin: 08/14/17 09:47 Dose: 5,000 unit Sodium Chloride (Normal Saline -) 1,000 mls @ 75 mls/hr IV ASDIR [facility] Last Admin: 08/13/17 22:56 Dose: 75 mls/hr Ondansetron HCl (Zofran Injection) 4 mg IVPUSH Q6H PRN PRN Reason: NAUSEA Multivit/Folic Acid/Iron ( Vitamins (Sjr) -) 1 tab PO DAILY [facility] Last Admin: 08/14/17 09:46 Dose: 1 tab Thiamine HCl (Vitamin B1 -) 100 mg PO HS [facility] Last Admin: 08/13/17 22:53 Dose: 100 mg - Objective Vital Signs: Vital Signs Temperature 97.8 F 08/14/17 06:00 Pulse Rate 75 08/14/17 06:00 Respiratory Rate 18 08/14/17 06:00 Blood Pressure 126/89 08/14/17 06:00 O2 Sat by Pulse Oximetry (%) 98 08/13/17 21:00 Constitutional: Yes: Well Nourished, No Distress, Calm Cardiovascular: Yes: Regular Rate and Rhythm Respiratory: Yes: Regular Gastrointestinal: Yes: Normal Bowel Sounds, Soft Extremities: Yes: WNL Edema: No Peripheral Pulses WNL: Yes Neurological: Yes: Alert, Oriented Psychiatric: Yes: Alert, Oriented Labs: CBC, BMP 08/14/17 06:00 08/14/17 06:00 INR, PTT INR 1.05 (0.82-1.09) 08/13/17 06:00 Problem List - Problems (1) Alcoholic pancreatitis Assessment/Plan: -librium protocol seen by [facility]F Tolerating clear liquids pain management will go to Detox after d/c PT eval DVT prophylaxis Code(s): K85.20 - ALCOHOL INDUCED ACUTE PANCREATITIS WITHOUT NECROSIS OR INFCT (2) Alcohol abuse Assessment/Plan: Detox-rehab seen by [facility] protocol Counseling Code(s): F10.10 - ALCOHOL ABUSE, UNCOMPLICATED
[2017-08-14 11:26] LABS: ADD RBC MORPHOLOGY YES
[2017-08-14] MEDS: POTASSIUM CHLORIDE ORAL LIQUID 20 MEQ/15 ML PO SCH (12:26)
[2017-08-14 14:22] LABS: ANISOCYTOSIS 3+; MACROCYTOSIS 1+
[2017-08-14] MEDS: chlordiazePOXIDE 5 MG CAPSULE PO SCH ×2 (17:43→22:57)
[2017-08-14] MEDS: SODIUM CHLORIDE 1,000 ML IV SCH (17:45)
[2017-08-14] MEDS: THIAMINE HCL 100 MG TABLET (FP) PO SCH (21:03)
[2017-08-14] MEDS ORDERED: MAG HYDROX/AL HYDROX/SIMETH 30 ML UNIT-DOSE CUP PO ONE (21:15)
[2017-08-15 06:11] LABS: SERUM IRON SATURATION 24 % (15-55); TOTAL IRON BINDING CAPACITY 170 ug/dL (250-450); UIBC 130 ug/dL (131-425)
[2017-08-15] MEDS: chlordiazePOXIDE 5 MG CAPSULE PO SCH ×2 (06:11→11:42)
[2017-08-15 07:49] LABS: BASO % 0.8 % (0-2.0); EOS % 2.3 % (0-4.5); HEMATOCRIT 26.8 % (32.4-45.2); HEMOGLOBIN 9.1 GM/dL (10.7-15.3); LYMPH % 21.7 % (8-40); MCH 32.1 pg (25.7-33.7); MCHC 33.8 g/dl (32.0-36.0); MEAN CELL VOLUME 94.9 fl (80-96); MEAN PLT VOLUME 8.3 fl (7.5-11.1); MONO % 7.4 % (3.8-10.2); NEUT % 67.8 % (42.8-82.8); PLATELET COUNT 147 K/MM3 (134-434); RBC 2.82 M/mm3 (3.60-5.2); RDW 25.2 % (11.6-15.6); WHITE BLOOD COUNT 4.2 K/mm3 (4.0-10.0)
[2017-08-15 08:30] LABS: ANION GAP 7 (8-16); BLOOD UREA NITROGEN 5 mg/dL (7-18); CALCIUM 8.1 mg/dL (8.5-10.1); CHLORIDE 109 mmol/L (98-107); CO2 26 mmol/L (21-32); CREATININE 0.4 mg/dL (0.55-1.02); GLUCOSE,RANDOM 95 mg/dL (74-106); POTASSIUM 3.4 mmol/L (3.5-5.1); SODIUM 142 mmol/L (136-145)
--- NOTE | 2017-08-15 09:17 | PN ---
Progress Note, Physician History of Present Illness: c/o right sided weakness - Current Medication List Current Medications: Active Medications Chlordiazepoxide HCl (Librium -) 15 mg PO [id number] COUNTS INCLUDE 234 BEDS AT [facility] Stop: 08/15/17 11:01 Last Admin: 08/15/17 06:11 Dose: 15 mg Chlordiazepoxide HCl (Librium -) 25 mg PO Q4H PRN PRN Reason: WITHDRAWAL(CONT SUBST) Stop: 08/15/17 16:29 Heparin Sodium (Porcine) (Heparin -) 5,000 unit SQ BID COUNTS [facility]CLUDE 234 BEDS AT THE [facility] Last Admin: 08/14/17 21:03 Dose: 5,000 unit Sodium Chloride (Normal Saline -) 1,000 mls @ 75 mls/hr IV ASDIR COUNTS INCLUDE 234 BEDS AT THE [facility] Last Admin: 08/14/17 17:45 Dose: 75 mls/hr Potassium Chloride (Potassium Chloride 10 Meq Premix Ivpb -) 10 meq in 100 mls @ 100 mls/hr IVPB Q60M COUNTS INCLUDE 234 BEDS AT THE [facility] Stop: 08/15/17 11:29 Ondansetron HCl (Zofran Injection) 4 mg IVPUSH Q6H PRN PRN Reason: NAUSEA Potassium Chloride (Potassium Chloride Oral Liquid) 40 meq PO DAILY [facility]S [facility]CLUDE 234 BEDS AT THE [facility] Last Admin: 08/14/17 12:26 Dose: 40 meq Multivit/Folic Acid/Iron ( Vitamins (Sjr) -) 1 tab PO DAILY [facility]S [facility]CLUDE 234 BEDS AT THE [facility] Last Admin: 08/14/17 09:46 Dose: 1 tab Thiamine HCl (Vitamin B1 -) 100 mg PO HS COUNTS INCLUDE 234 BEDS AT THE [facility] Last Admin: 08/14/17 21:03 Dose: 100 mg - Objective Vital Signs: Vital Signs Temperature 97.7 F 08/15/17 05:46 Pulse Rate 74 08/15/17 05:46 Respiratory Rate 18 08/15/17 05:46 Blood Pressure 120/87 08/15/17 05:46 O2 Sat by Pulse Oximetry (%) 98 08/14/17 21:00 Cardiovascular: Yes: S1, S2 Respiratory: Yes: Regular, CTA Bilaterally Gastrointestinal: Yes: Normal Bowel Sounds, Soft Neurological: Yes: Alert, Oriented, Babinski negative, Weakness, Other ( generalized weaknes with more weakness on the right) Labs: CBC, BMP 08/15/17 06:30 08/15/17 06:30 INR, PTT INR 1.05 (0.82-1.09) 08/13/17 06:00 Problem List - Problems (1) Right sided weakness Assessment/Plan: -r/o cva -mri -neuro Code(s): R53.1 - WEAKNESS (2) Alcoholic pancreatitis Assessment/Plan: -follow trends-lipase -monitor -Tolerating clear liquids pain management will go to Detox after d/c PT eval DVT prophylaxis Code(s): K85.20 - ALCOHOL INDUCED ACUTE PANCREATITIS WITHOUT NECROSIS OR INFCT (3) Alcohol abuse Assessment/Plan: Detox-rehab seen by [facility] Counseling Code(s): F10.10 - ALCOHOL ABUSE, UNCOMPLICATED Code(s): F10.10 - ALCOHOL ABUSE, UNCOMPLICATED (4) Anemia Assessment/Plan: -stable at 9.1 -monitor Code(s): D64.9 - ANEMIA, UNSPECIFIED (5) Hypokalemia Assessment/Plan: -replace Code(s): E87.6 - HYPOKALEMIA
[2017-08-15] MEDS ORDERED: KCL 10 MEQ IVPB 10 MEQ/100 ML INFUS.BAG IVPB SCH (09:30)
[2017-08-15] MEDS ORDERED: POTASSIUM CHLORIDE 20 MEQ in SODIUM CHLORIDE 250 ML IVPB ONE (11:00)
[2017-08-15 11:01] LABS: ALBUMIN 2.6 g/dl (3.4-5.0); BILIRUBIN,DIRECT 0.2 mg/dL (0.0-0.2)
[2017-08-15 11:34] LABS: BILIRUBIN,TOTAL 0.5 mg/dL (0.2-1.0)
[2017-08-15] MEDS: HEPARIN NA (PORCINE) 5,000 UNITS/ML 1ML VIAL SQ SCH ×2 (11:40→21:48)
[2017-08-15] MEDS: POTASSIUM CHLORIDE ORAL LIQUID 20 MEQ/15 ML PO SCH (11:40)
[2017-08-15] MEDS: PRENATAL VITAMINS W/ FOLIC ACID TABLET (FP) PO SCH (11:42)
--- NOTE | 2017-08-15 13:16 | PN ---
Progress Note, Physician History of Present Illness: Appears comfortable. Not in pain, or discomfort. - Current Medication List Current Medications: Active Medications Chlordiazepoxide HCl (Librium -) 25 mg PO Q4H PRN PRN Reason: WITHDRAWAL(CONT SUBST) Stop: 08/15/17 16:29 Heparin Sodium (Porcine) (Heparin -) 5,000 unit SQ BID [facility] Last Admin: 08/15/17 11:40 Dose: 5,000 unit Sodium Chloride (Normal Saline -) 1,000 mls @ 75 mls/hr IV ASDIR [facility] Last Admin: 08/14/17 17:45 Dose: 75 mls/hr Ondansetron HCl (Zofran Injection) 4 mg IVPUSH Q6H PRN PRN Reason: NAUSEA Potassium Chloride (Potassium Chloride Oral Liquid) 40 meq PO DAILY [facility] Last Admin: 08/15/17 11:40 Dose: 40 meq Multivit/Folic Acid/Iron ( Vitamins (Sjr) -) 1 tab PO DAILY [facility] Last Admin: 08/15/17 11:42 Dose: 1 tab Thiamine HCl (Vitamin B1 -) 100 mg PO [facility] Last Admin: 08/14/17 21:03 Dose: 100 mg - Objective Vital Signs: Vital Signs Temperature 97.8 F 08/15/17 12:05 Pulse Rate 77 08/15/17 12:05 Respiratory Rate 18 08/15/17 12:05 Blood Pressure 116/85 08/15/17 12:05 O2 Sat by Pulse Oximetry (%) 98 08/14/17 21:00 Constitutional: Yes: No Distress, Calm Gastrointestinal: Yes: Soft. No: Normal Bowel Sounds, Tenderness Neurological: Yes: Alert Labs: CBC, BMP 08/15/17 06:30 08/15/17 06:30 INR, PTT INR 1.05 (0.82-1.09) 08/13/17 06:00 Laboratory Last Values WBC 4.2 K/mm3 (4.0-10.0) 08/15/17 06:30 RBC 2.82 M/mm3 (3.60-5.2) L 08/15/17 06:30 Hgb 9.1 GM/dL (10.7-15.3) L 08/15/17 06:30 Hct 26.8 % (32.4-45.2) L 08/15/17 06:30 MCV 94.9 fl (80-96) 08/15/17 06:30 MCH 32.1 pg (25.7-33.7) 08/15/17 06:30 MCHC 33.8 g/dl (32.0-36.0) 08/15/17 06:30 RDW 25.2 % (11.6-15.6) H 08/15/17 06:30 Plt Count 147 K/MM3 (134-434) 08/15/17 06:30 MPV 8.3 fl (7.5-11.1) 08/15/17 06:30 Neutrophils % 67.8 % (42.8-82.8) 08/15/17 06:30 Lymphocytes % 21.7 % (8-40) 08/15/17 06:30 Monocytes % 7.4 % (3.8-10.2) 08/15/17 06:30 Eosinophils % 2.3 % (0-4.5) 08/15/17 06:30 Basophils % 0.8 % (0-2.0) 08/15/17 06:30 Nucleated RBC % 0 % (0-0) 08/15/17 06:30 Hypochromia 1+ 08/14/17 06:00 Anisocytosis 3+ 08/14/17 06:00 Macrocytosis 1+ 08/14/17 06:00 PT with INR 11.90 SEC (9.7-13.0) 08/13/17 06:00 INR 1.05 (0.82-1.09) 08/13/17 06:00 PTT (Actin FS) 30.3 SECONDS (26.9-34.4) 08/13/17 06:00 Sodium 142 mmol/L (136-145) 08/15/17 06:30 Potassium 3.4 mmol/L (3.5-5.1) L 08/15/17 06:30 Chloride 109 mmol/L (98-107) H 08/15/17 06:30 Carbon Dioxide 26 mmol/L (21-32) 08/15/17 06:30 Anion Gap 7 (8-16) L 08/15/17 06:30 BUN 5 mg/dL (7-18) L 08/15/17 06:30 Creatinine 0.4 mg/dL (0.55-1.02) L 08/15/17 06:30 Creat Clearance w eGFR > 60 (>60) 08/14/17 06:00 Random Glucose 95 mg/dL (74-106) 08/15/17 06:30 Calcium 8.1 mg/dL (8.5-10.1) L 08/15/17 06:30 Phosphorus 1.7 mg/dL (2.5-4.9) L 08/13/17 06:00 Magnesium 1.8 mg/dL (1.8-2.4) 08/13/17 06:00 Iron 40 ug/dL (27-159) 08/14/17 06:00 TIBC 170 ug/dL (250-450) L 08/14/17 06:00 Iron Saturation 24 % (15-55) 08/14/17 06:00 Ferritin 265.140 ng/ml (6.9-282.5) 08/14/17 06:00 Total Bilirubin 0.5 mg/dL (0.2-1.0) D 08/15/17 10:25 Direct Bilirubin 0.2 mg/dL (0.0-0.2) 08/15/17 10:25 AST 54 U/L (15-37) H 08/15/17 10:25 ALT 35 U/L (12-78) 08/15/17 10:25 Alkaline Phosphatase 80 U/L (45-117) 08/15/17 10:25 Ammonia 18.03 umol/L (11-32) 08/15/17 10:25 Creatine Kinase 52 IU/L (26-192) 08/12/17 08:45 Troponin I < 0.02 ng/ml (0.00-0.05) 08/12/17 08:45 B-Natriuretic Peptide 40.45 pg/ml (5-125) 08/13/17 06:00 Total Protein 6.0 g/dl (6.4-8.2) L 08/15/17 10:25 Albumin 2.6 g/dl (3.4-5.0) L 08/15/17 10:25 Total Amylase 132 U/L (25-115) H 08/15/17 10:25 Lipase 2837 U/L (73-393) H 08/15/17 10:25 Vitamin B12 311 pg/ml (180-914) 08/15/17 10:25 Serum Folate 3 ng/ml (3.1-17.5) L 08/15/17 10:25 Serum , Qual Negative 08/12/17 08:45 Urine Color Dk yellow 08/12/17 10:22 Urine Appearance Clear 08/12/17 10:22 Urine pH 6.0 (5.0-8.0) 08/12/17 10:22 Ur Specific Crouse 1.025 (1.001-1.035) 08/12/17 10:22 Urine Protein 2+ (NEGATIVE) H 08/12/17 10:22 Urine Glucose (UA) Negative (NEGATIVE) 08/12/17 10:22 Urine Ketones 2+ (NEGATIVE) H 08/12/17 10:22 Urine Blood Negative (NEGATIVE) 08/12/17 10:22 Urine Nitrite Negative (NEGATIVE) 08/12/17 10:22 Urine Bilirubin 2.0 (<2.0 mg/dL) 08/12/17 10:22 Urine Urobilinogen 2.0 mg/dL (0.2-1.0) H 08/12/17 10:22 Ur Leukocyte Esterase Negative (NEGATIVE) 08/12/17 10:22 Urine WBC (Auto) 4 /hpf (3-5) 08/12/17 10:22 Urine RBC (Auto) 1 /hpf (0-3) 08/12/17 10:22 Ur Epithelial Cells Rare /HPF (FEW) 08/12/17 10:22 Hyaline Casts 16 /lpf 08/12/17 10:22 Urine Mucus Rare 08/12/17 10:22 Urine HCG, Qual Negative 08/12/17 18:50 Stool Occult Blood Negative (NEGATIVE) 08/13/17 20:30 Opiates Screen Positive ng/ml (RBTTCD=218) 08/12/17 18:50 Methadone Screen Negative ng/ml (QHQLBL=821) 08/12/17 18:50 Barbiturate Screen Negative ng/ml (GABAEC=162) 08/12/17 18:50 Phencyclidine Screen Negative ng/ml (CUTOFF=25) 08/12/17 18:50 Ur Amphetamines Screen Negative ng/ml (WZWONA=915) 08/12/17 18:50 MDMA (Ecstasy) Screen Negative ng/ml (HNFJOW=506) 08/12/17 18:50 Benzodiazepines Screen Negative ng/ml (PWHVFO=891) 08/12/17 18:50 Cocaine Screen Negative ng/ml (UVBFHJ=243) 08/12/17 18:50 U Marijuana (THC) Screen Negative ng/ml (CUTOFF=50) 08/12/17 18:50 Alcohol, Quantitative < 5.0 mg/dL (0.0-5.0) 08/12/17 08:45 Problem List - Problems (1) Alcoholic pancreatitis Code(s): K85.20 - ALCOHOL INDUCED ACUTE PANCREATITIS WITHOUT NECROSIS OR INFCT (2) Pancreatitis Code(s): K85.90 - ACUTE PANCREATITIS WITHOUT NECROSIS OR INFECTION, UNSP Qualifiers: Chronicity: acute Pancreatitis type: alcohol induced Acute pancreatitis complication: unspecified Qualified Code(s): K85.20 - Alcohol induced acute pancreatitis without necrosis or infection (3) Alcohol abuse Code(s): F10.10 - ALCOHOL ABUSE, UNCOMPLICATED (4) Alcohol dependence Code(s): F10.20 - ALCOHOL DEPENDENCE, UNCOMPLICATED Qualifiers: Substance use status: in withdrawal Complication of substance-induced condition: uncomplicated Qualified Code(s): F10.230 - Alcohol dependence with withdrawal, uncomplicated Assessment/Plan Continue current management. IV/by mouth hydration. Supplement folate, B12. Monitor electrolytes. Tolerating regular diet.
[2017-08-15] MEDS: THIAMINE HCL 100 MG TABLET (FP) PO SCH (21:48)
[2017-08-16 07:20] LABS: BASO % 0.8 % (0-2.0); EOS % 2.9 % (0-4.5); HEMATOCRIT 26.1 % (32.4-45.2); HEMOGLOBIN 8.7 GM/dL (10.7-15.3); LYMPH % 22.7 % (8-40); MCH 32.1 pg (25.7-33.7); MCHC 33.3 g/dl (32.0-36.0); MEAN CELL VOLUME 96.2 fl (80-96); MEAN PLT VOLUME 8.5 fl (7.5-11.1); MONO % 10.2 % (3.8-10.2); NEUT % 63.4 % (42.8-82.8); PLATELET COUNT 187 K/MM3 (134-434); RBC 2.71 M/mm3 (3.60-5.2); RDW 25.5 % (11.6-15.6); WHITE BLOOD COUNT 4.7 K/mm3 (4.0-10.0)
[2017-08-16 07:48] LABS: ALBUMIN 2.4 g/dl (3.4-5.0); ANION GAP 6 (8-16); BILIRUBIN,TOTAL 0.3 mg/dL (0.2-1.0); BLOOD UREA NITROGEN 6 mg/dL (7-18); CALCIUM 8.3 mg/dL (8.5-10.1); CHLORIDE 107 mmol/L (98-107); CO2 27 mmol/L (21-32); CREATININE 0.5 mg/dL (0.55-1.02); GLUCOSE,RANDOM 94 mg/dL (74-106); POTASSIUM 3.6 mmol/L (3.5-5.1); SGOT/AST 57 U/L (15-37); SGPT/ALT 34 U/L (12-78); SODIUM 140 mmol/L (136-145); TOT PROT 5.7 g/dl (6.4-8.2)
[2017-08-16 07:54] LABS: ALK PHOS 80 U/L (45-117)
[2017-08-16 08:23] LABS: LIPASE 2313 U/L (73-393)
--- NOTE | 2017-08-16 09:33 | PN ---
Progress Note, Physician History of Present Illness: c/o right sided weakness - Current Medication List Current Medications: Active Medications Heparin Sodium (Porcine) (Heparin -) 5,000 unit SQ BID [facility] Last Admin: 08/15/17 21:48 Dose: 5,000 unit Ondansetron HCl (Zofran Injection) 4 mg IVPUSH Q6H PRN PRN Reason: NAUSEA Potassium Chloride (Potassium Chloride Oral Liquid) 40 meq PO DAILY [facility] Last Admin: 08/15/17 11:40 Dose: 40 meq Multivit/Folic Acid/Iron ( Vitamins (Sjr) -) 1 tab PO DAILY [facility] Last Admin: 08/15/17 11:42 Dose: 1 tab Thiamine HCl (Vitamin B1 -) 100 mg PO HS [facility] Last Admin: 08/15/17 21:48 Dose: 100 mg - Objective Vital Signs: Vital Signs Temperature 98.3 F 08/16/17 06:00 Pulse Rate 82 08/16/17 06:00 Respiratory Rate 18 08/16/17 06:00 Blood Pressure 125/83 08/16/17 06:00 O2 Sat by Pulse Oximetry (%) 99 08/15/17 21:00 Cardiovascular: Yes: Regular Rate and Rhythm Respiratory: Yes: Regular, CTA Bilaterally Gastrointestinal: Yes: Normal Bowel Sounds, Soft Labs: CBC, BMP 08/16/17 06:30 08/16/17 06:30 INR, PTT INR 1.05 (0.82-1.09) 08/13/17 06:00 Problem List - Problems (1) Right sided weakness Assessment/Plan: -better today--less weakness -r/o cva--mri neg for cva -neuro Code(s): R53.1 - WEAKNESS (2) Alcoholic pancreatitis Assessment/Plan: -follow trends-lipase -monitor -Tolerating clear liquids pain management will go to Detox after d/c PT eval DVT prophylaxis Code(s): K85.20 - ALCOHOL INDUCED ACUTE PANCREATITIS WITHOUT NECROSIS OR INFCT (3) Alcohol abuse Assessment/Plan: Detox-rehab [facility] protocol Counseling Code(s): F10.10 - ALCOHOL ABUSE, UNCOMPLICATED Code(s): F10.10 - ALCOHOL ABUSE, UNCOMPLICATED (4) Anemia Assessment/Plan: -stable at 9.1 -monitor Code(s): D64.9 - ANEMIA, UNSPECIFIED (5) Hypokalemia Assessment/Plan: -replace Code(s): E87.6 - HYPOKALEMIA
[2017-08-16] MEDS: PRENATAL VITAMINS W/ FOLIC ACID TABLET (FP) PO SCH (10:21)
[2017-08-16] MEDS: HEPARIN NA (PORCINE) 5,000 UNITS/ML 1ML VIAL SQ SCH ×2 (10:21→22:18)
[2017-08-16] MEDS: CYANOCOBALAMIN (VITAMIN B-12) 1000 MCG/1 ML VIAL IM SCH (10:21)
[2017-08-16] MEDS: POTASSIUM CHLORIDE ORAL LIQUID 20 MEQ/15 ML PO SCH (10:21)
[2017-08-16] MEDS: FOLIC ACID 1 MG TABLET (FP) PO SCH (10:21)
--- NOTE | 2017-08-16 17:05 | CONSULT ---
Consult - text type - Consultation Consultation Note: NEUROLOGY CONSULTATION is greatly appreciated: Events reviewed, patient examined. This 47 yo RH woman lives with her 25 yo daughter. Known to me, in the past, for evaluation and Rx of essential tremor, carpal tunnel syndrome and Alcohol withdrawal. Over the last 8 months the patient has consumed increasing amounts of rum (1 pt/ day) and has noticed a continuing decline in the amount of time she can go without a drink. Drinks in AM before work at the [employer]. Gradually progressive decline in gait. 1 yr ago could walk 3 miles. Now cannot walk 1/2 block or climb 1 FOS. 60 lb antonio loss in 1 year (168-108 lbs). Admitted with acute pancreatitis. Now for evaluation of diffuse weakness. Pt c/o numbness in both hands and the right 2nd toe, mohinder at night. MRI of brain (reviewed): Mild atrophy. No obvious midline cerebellar atrophy. CK=52 IU. Ammonia=18 mg%. E35=431 pg%. Hylgcm=5222 mg%. Anemic: H/H= 10/10. Mod elevated LFT's. TRUPTI: Thin. Protuberant abdomen. Non-tender. Neck supple. Cor: Reg. Periorbital edema NEURO: Awake, alert. Ox 3. Bradyphrenic and slow to respond. Speech: fluent CN II-XII: normal without nystagmus. Motor: No drift or tremor. Mild proximal weakness in the legs with normal arm strength and ankle dorsiflexion. Reduced KJ's. Normal AJ's. Toes downgoing. No cogwheel rigidity. Requires modified Michelle's to arise from chair. Coord: No FTN dystaxia Sensory: Normal vib in feet. Pin reduced both dig II Gait: Flexed, shuffling. slightly wide-based. IMP: 1. Mild B/L, proximal, leg weakness c/w mild Alcoholic Myopathy. 2. B/L Carpal tunnel syndromes. 3. Alcohol withdrawal. 4. Toxic-metabolic encephalitis due to Acute Pancreatitis. SUGGEST: Parenteral thiamine. Is not taking PO well-would consider continued IV hydration. PO or IV vitamins and nutritional support. Mobilize OOBed to chair and PT for gait with walker. Inpatient ETOH rehab/treatment. Check TFT's. Follow LFT's. Thank you very much, Chapin Arizmendi MD
[2017-08-16] MEDS: THIAMINE HCL 200 MG/2 ML VIAL IVPB SCH (20:25)
[2017-08-17] MEDS ORDERED: MAG HYDROX/AL HYDROX/SIMETH 30 ML UNIT-DOSE CUP PO ONE (01:04)
[2017-08-17] MEDS: THIAMINE HCL 200 MG/2 ML VIAL IVPB SCH ×3 (01:21→17:35)
[2017-08-17 07:07] LABS: BASO % 1.2 % (0-2.0); EOS % 3.7 % (0-4.5); HEMATOCRIT 26.8 % (32.4-45.2); HEMOGLOBIN 9.1 GM/dL (10.7-15.3); LYMPH % 23.6 % (8-40); MCH 32.6 pg (25.7-33.7); MCHC 33.8 g/dl (32.0-36.0); MEAN CELL VOLUME 96.4 fl (80-96); MONO % 11.4 % (3.8-10.2); NEUT % 60.1 % (42.8-82.8); PLATELET COUNT 227 K/MM3 (134-434); RBC 2.78 M/mm3 (3.60-5.2); RDW 25.9 % (11.6-15.6); WHITE BLOOD COUNT 4.2 K/mm3 (4.0-10.0)
[2017-08-17 07:46] LABS: CHLORIDE 104 mmol/L (98-107); POTASSIUM 4.2 mmol/L (3.5-5.1); SODIUM 139 mmol/L (136-145)
[2017-08-17 08:14] LABS: ALBUMIN 2.5 g/dl (3.4-5.0); ALK PHOS 84 U/L (45-117); ANION GAP 6 (8-16); BILIRUBIN,TOTAL 0.2 mg/dL (0.2-1.0); BLOOD UREA NITROGEN 8 mg/dL (7-18); CALCIUM 8.6 mg/dL (8.5-10.1); CO2 29 mmol/L (21-32); CREATININE 0.6 mg/dL (0.55-1.02); GLUCOSE,RANDOM 100 mg/dL (74-106); SGOT/AST 69 U/L (15-37); SGPT/ALT 35 U/L (12-78); TOT PROT 5.8 g/dl (6.4-8.2)
[2017-08-17 08:15] LABS: LIPASE 2613 U/L (73-393)
[2017-08-17] MEDS: FOLIC ACID 1 MG TABLET (FP) PO SCH (09:51)
[2017-08-17] MEDS: POTASSIUM CHLORIDE ORAL LIQUID 20 MEQ/15 ML PO SCH (09:51)
[2017-08-17] MEDS: HEPARIN NA (PORCINE) 5,000 UNITS/ML 1ML VIAL SQ SCH ×2 (09:52→22:03)
[2017-08-17] MEDS: PRENATAL VITAMINS W/ FOLIC ACID TABLET (FP) PO SCH (09:52)
[2017-08-17] MEDS: CYANOCOBALAMIN (VITAMIN B-12) 1000 MCG/1 ML VIAL IM SCH (09:52)
--- NOTE | 2017-08-17 10:46 | PN ---
Progress Note, Physician - Current Medication List Current Medications: Active Medications Cyanocobalamin (Vitamin B12 Injection -) 1,000 mcg IM DAILY [facility] Last Admin: 08/17/17 09:52 Dose: 1,000 mcg Folic Acid (Folic Acid -) 1 mg PO DAILY [facility] Last Admin: 08/17/17 09:51 Dose: 1 mg Heparin Sodium (Porcine) (Heparin -) 5,000 unit SQ BID [facility] Last Admin: 08/17/17 09:52 Dose: 5,000 unit Ondansetron HCl (Zofran Injection) 4 mg IVPUSH Q6H PRN PRN Reason: NAUSEA Potassium Chloride (Potassium Chloride Oral Liquid) 40 meq PO DAILY [facility] Last Admin: 08/17/17 09:51 Dose: 40 meq Multivit/Folic Acid/Iron ( Vitamins (Sjr) -) 1 tab PO DAILY [facility] Last Admin: 08/17/17 09:52 Dose: 1 tab Thiamine HCl (Vitamin B1 Injection -) 200 mg IVPB Q8H-IV [facility] Stop: 08/19/17 17:59 Last Admin: 08/17/17 09:55 Dose: 200 mg - Objective Vital Signs: Vital Signs Temperature 97.8 F 08/17/17 09:00 Pulse Rate 88 08/17/17 09:00 Respiratory Rate 22 08/17/17 09:00 Blood Pressure 131/100 08/17/17 09:00 O2 Sat by Pulse Oximetry (%) 98 08/16/17 21:00 Cardiovascular: Yes: Regular Rate and Rhythm Respiratory: Yes: Regular, CTA Bilaterally Gastrointestinal: Yes: Normal Bowel Sounds, Soft Edema: No Neurological: Yes: Alert, Unsteady Gait, Weakness Labs: CBC, BMP 08/17/17 06:30 08/17/17 06:30 INR, PTT INR 1.05 (0.82-1.09) 08/13/17 06:00 Problem List - Problems (1) Right sided weakness Assessment/Plan: -better today--less weakness -r/o cva--mri neg for cva -neuro noted -pt Code(s): R53.1 - WEAKNESS (2) Alcoholic pancreatitis Assessment/Plan: -follow trends-lipase -monitor -Tolerating clear liquids pain management will go to Detox after d/c PT eval DVT prophylaxis Code(s): K85.20 - ALCOHOL INDUCED ACUTE PANCREATITIS WITHOUT NECROSIS OR INFCT (3) Alcohol abuse Assessment/Plan: Detox-rehab seen by [facility] protocol Counseling Code(s): F10.10 - ALCOHOL ABUSE, UNCOMPLICATED Code(s): F10.10 - ALCOHOL ABUSE, UNCOMPLICATED (4) Anemia Assessment/Plan: -stable at 9.1 -monitor Code(s): D64.9 - ANEMIA, UNSPECIFIED (5) Hypokalemia Assessment/Plan: -replace Code(s): E87.6 - HYPOKALEMIA
--- NOTE | 2017-08-17 22:31 | EKG ---
Test Reason : Blood Pressure : / mmHG Vent. Rate : 089 BPM Atrial Rate : 089 BPM P-R Int : 132 ms QRS Dur : 084 ms QT Int : 398 ms P-R-T Axes : 030 -16 -01 degrees QTc Int : 484 ms NORMAL SINUS RHYTHM MINIMAL VOLTAGE CRITERIA FOR LVH, MAY BE NORMAL VARIANT ANTERIOR INFARCT , AGE UNDETERMINED ABNORMAL ECG Confirmed by DARIN WOODS MD ([id number]) on 08/17/2017 10:30:36 PM Referred By: Confirmed By:DARIN WOODS MD
[2017-08-18] MEDS: THIAMINE HCL 200 MG/2 ML VIAL IVPB SCH ×3 (01:10→17:41)
[2017-08-18 06:23] LABS: BASO % 1.2 % (0-2.0); HEMATOCRIT 27.7 % (32.4-45.2); HEMOGLOBIN 9.5 GM/dL (10.7-15.3); MCH 32.8 pg (25.7-33.7); MCHC 34.1 g/dl (32.0-36.0); MEAN CELL VOLUME 96.3 fl (80-96); MEAN PLT VOLUME 7.4 fl (7.5-11.1); MONO % 13.1 % (3.8-10.2); NEUT % 60.7 % (42.8-82.8); PLATELET COUNT 285 K/MM3 (134-434); RBC 2.88 M/mm3 (3.60-5.2); RDW 26.1 % (11.6-15.6)
[2017-08-18 06:40] LABS: ALBUMIN 2.6 g/dl (3.4-5.0); ANION GAP 4 (8-16); BILIRUBIN,TOTAL 0.2 mg/dL (0.2-1.0); BLOOD UREA NITROGEN 8 mg/dL (7-18); CHLORIDE 106 mmol/L (98-107); CO2 29 mmol/L (21-32); CREATININE 0.6 mg/dL (0.55-1.02); GLUCOSE,RANDOM 113 mg/dL (74-106); POTASSIUM 4.4 mmol/L (3.5-5.1); SGOT/AST 50 U/L (15-37); SGPT/ALT 36 U/L (12-78); SODIUM 139 mmol/L (136-145); TOT PROT 6.3 g/dl (6.4-8.2)
[2017-08-18 06:41] LABS: ALK PHOS 95 U/L (45-117)
[2017-08-18 06:51] LABS: LIPASE 2639 U/L (73-393)
[2017-08-18] MEDS ORDERED: PT OWN MED DRAWER 7, Y5N ONE (10:26)
[2017-08-18] MEDS: HEPARIN NA (PORCINE) 5,000 UNITS/ML 1ML VIAL SQ SCH ×2 (10:40→21:35)
[2017-08-18] MEDS: FOLIC ACID 1 MG TABLET (FP) PO SCH (10:40)
[2017-08-18] MEDS: POTASSIUM CHLORIDE ORAL LIQUID 20 MEQ/15 ML PO SCH (10:41)
[2017-08-18] MEDS: CYANOCOBALAMIN (VITAMIN B-12) 1000 MCG/1 ML VIAL IM SCH (10:41)
[2017-08-18] MEDS: PRENATAL VITAMINS W/ FOLIC ACID TABLET (FP) PO SCH (10:41)
--- NOTE | 2017-08-18 10:48 | CONS ---
DATE OF CONSULTATION: 08/18/2017 REFERRING PHYSICIAN: Tracey Bentley MD HISTORY OF PRESENT ILLNESS: The patient is a 47-year-old woman with past medical history of alcohol abuse, bilateral carpal tunnel syndrome who presented with weakness, difficulty walking as well as abdominal pain. The patient on admission had a lipase of over 4100. She had normal WBCs 6.9, hemoglobin normal 11.9, platelet count 206, BUN 6, creatinine 1.1. She had a low CO2 of 14, low sodium 133 but normal potassium 4.5 and chloride 99. The patient was diagnosed with acute pancreatitis and underwent neurologic evaluation who also diagnosed her with alcoholic myopathy and toxic metabolic encephalopathy, which was due to the pancreatitis and improving. Follow up blood work on August 18, today, WBCs normal at 5, decreased hemoglobin 9.5, platelet count 285. Chemistry was within normal limits except for elevated AST of 50. Lipase, which had been trending better is still elevated at over 2600. The patient has no complaints of abdominal pain. She does get some numbness and tingling in her toes and also in her upper extremities but has more of a complaint of hip discomfort when standing and ambulating as well as weakness in her lower extremities. She was evaluated by physical therapy on August 15 ambulating 45 feet with a rolling walker contact guard assist. Per her major case detective, the patient would like to be discharged directly to alcohol rehabilitation, but she is uncertain whether the patient will be accepted due to her functional status. I also discussed with her physical therapist who will be seeing her today. PAST MEDICAL HISTORY: As above. Alcohol abuse. PAST SURGICAL HISTORY: As above. Bilateral carpal tunnel syndrome. SOCIAL HISTORY: Premorbidly the patient had been independent, ambulatory without assistive device. Current function as above. REVIEW OF SYSTEMS: No headache, no lightheadedness, dizziness. No blurry vision, double vision. No nausea or vomiting, difficulty swallowing, difficulty chewing. No chest pain. She does get dyspneic with exertion and also complains of abdominal pain at times, but currently no abdominal discomfort. No bowel or bladder incontinence. Numbness and tingling in the upper extremities in a median nerve distribution. Also in the distal lower extremities. Again, hip girdle discomfort when she stands and ambulates. None while she is lying in bed. No fever or chills. She has lost a lot of weight, up to 60 pounds in the last few months. PHYSICAL EXAMINATION: General: The patient is a thin woman lying in bed. She is resting comfortably but easily arousable and oriented. Cooperative with examination. HEENT: She is normocephalic and atraumatic. Extraocular muscles appear intact. She has no obvious facial weakness. No oral ulcers. Neck: Supple without any palpable spasm. Extremities: Without any pitting edema or calf tenderness. Neuromuscular: She is awake, alert, and oriented x3. Cranial nerves 2-12 appear grossly intact. She has thenar weakness and only 3+/5. Better intrinsic strength 4/5 to 4+/5. Shoulder girdle strength is at least 4/5. Elbow extensor strength 4/5. Elbow flexors 4+/5. The patient has diminished sensation more in a median than ulnar distribution in the upper extremities to pinprick as well as the lower extremities from just below the knee distally. She has at least antigravity strength in her hip girdle lying supine in bed, and the extensors are 4/5. She has better dorsiflexion, plantar flexion, and distal strength. Unable to stand or ambulate her at this time. No assistive device available but she has no gross arthritic change in the upper or lower extremities and no advanced atrophy. Skin: Without any breakdown or rash noted. OVERALL IMPRESSION: 1. Deficits in mobility, activities of daily living. 2. Alcohol myopathy. 3. Deconditioning. 4. Pancreatitis. 5. History of bilateral carpal tunnel syndrome. 6. History of alcohol abuse. 7. Anemia. 8. Status post hypokalemia, which resolved. Normal potassium currently 4.2. 9. Elevated liver function tests. 10. Hypoalbuminemia. 11. Elevated risk for deep vein thrombosis due to immobility. 12. Elevated risk for decubitus ulceration due to immobility. PLAN/SUGGESTION: 1. As discussed with physical therapy, she will be seen again today and try to get her independent with a walker or with a cane if possible. 2. Agree with disposition directly to alcohol rehabilitation unless she is not functionally able then would recommend short-term rehabilitation in a halfway facility. 3. Deep vein thrombosis until more mobile. Currently she is on subcutaneous heparin 5000 subcutaneous b.i.d. Would continue. 4. Skin precautions. Avoid heel and sacral pressure. Monitor for erythema or breakdown and frequent turning and movement. 5. Out of bed to chair with assistance. 6. The patient is already on B1 and B12 injections as well as folate and vitamins. 7. Nutritional consultation if possible. 8. Again, above was discussed with physical therapy as well as case management. Thank you for this referral. ZBIGNIEW SKY M.D. [facility]/[id number]
--- NOTE | 2017-08-18 16:43 | DS ---
Physical Examination Vital Signs: Vital Signs Temperature 98.2 F 08/18/17 14:00 Pulse Rate 90 08/18/17 14:00 Respiratory Rate 20 08/18/17 14:00 Blood Pressure 112/81 08/18/17 14:00 O2 Sat by Pulse Oximetry (%) 98 08/18/17 08:50 Findings/Remarks: PATIENT SCHEDULED FOR DISACHRGE HOWEVER COULD NOT WALK WITHOUT ASSISTANCE AND NEEDED A WALKER Constitutional: Yes: Mild Distress Eyes: Yes: WNL HENT: Yes: WNL Neck: Yes: WNL Cardiovascular: Yes: WNL Respiratory: Yes: WNL Gastrointestinal: Yes: WNL Renal/: Yes: WNL Musculoskeletal: Yes: Muscle Weakness Extremities: Yes: WNL Edema: No Peripheral Pulses WNL: Yes Integumentary: Yes: WNL Wound/Incision: Yes: Clean/Dry Neurological: Yes: Pre-Existing Deficit, Unsteady Gait ...Motor Strength: LLE, RLE Psychiatric: Yes: Other Labs: CBC, BMP 08/18/17 06:00 08/18/17 06:00 Discharge Summary Reason For Visit: PANCREATITIS Current Active Problems Alcohol dependence with uncomplicated withdrawal (Acute) Alcoholic pancreatitis (Acute) Pancreatitis (Acute) Right sided weakness (Acute) Procedures: Principal: MRI BRAIN Other Procedures: CT ABD Hospital Course: ADMITTED WITH ACUTE PANCREATITIS AND MUSCLE WEAKNESS ETOH WITHDRAWEL. TREATED WITH PAIN CONTROL AND IV PAIN MEDS AND FLUIDS AND NOW WITH MYOPATHY LEG WEAKNESS. PATIENT WILL UNDERGO PHYSICAL THERAPY REHAB OUTPATIENT. Condition: Stable - Instructions Diet, Activity, Other Instructions: ABSTAIN FROM ETOH SUPPORT GROUP AT [facility] PT WITH DR SKY SEE YOUR PMD DR TORRES OUTPATIENT Referrals: Jimmy Torres [Primary Care Provider] - Disposition: VNS/HOME HEALTH CARE - Home Medications Comprehensive Discharge Medication List: Ambulatory Orders NK [No Known Home Medication] 08/12/17
[2017-08-19] MEDS ORDERED: ACETAMINOPHEN 325 MG TABLET (FP) PO ONE ×2 (00:41→22:39)
[2017-08-19] MEDS: THIAMINE HCL 200 MG/2 ML VIAL IVPB SCH ×2 (02:57→10:00)
[2017-08-19] MEDS: PRENATAL VITAMINS W/ FOLIC ACID TABLET (FP) PO SCH (09:15)
[2017-08-19] MEDS: FOLIC ACID 1 MG TABLET (FP) PO SCH (09:15)
[2017-08-19] MEDS: POTASSIUM CHLORIDE ORAL LIQUID 20 MEQ/15 ML PO SCH (09:16)
[2017-08-19] MEDS: CYANOCOBALAMIN (VITAMIN B-12) 1000 MCG/1 ML VIAL IM SCH (09:16)
[2017-08-19] MEDS: HEPARIN NA (PORCINE) 5,000 UNITS/ML 1ML VIAL SQ SCH ×2 (09:16→21:20)
[2017-08-19] MEDS: POLYETHYLENE GLYCOL 3350 119 GM BTL PO SCH (12:20)
--- NOTE | 2017-08-19 12:54 | PN ---
Progress Note, Physician Chief Complaint: Alcoholic pancreatitis History of Present Illness: NAD,feeling better regular diet abdominal pain improved no N/V Seen by GI - Current Medication List Current Medications: Active Medications Cyanocobalamin (Vitamin B12 Injection -) 1,000 mcg IM DAILY [facility] Last Admin: 08/19/17 09:16 Dose: 1,000 mcg Folic Acid (Folic Acid -) 1 mg PO DAILY [facility] Last Admin: 08/19/17 09:15 Dose: 1 mg Heparin Sodium (Porcine) (Heparin -) 5,000 unit SQ BID [facility] Last Admin: 08/19/17 09:16 Dose: 5,000 unit Ondansetron HCl (Zofran Injection) 4 mg IVPUSH Q6H PRN PRN Reason: NAUSEA Polyethylene Glycol (Miralax (For Daily Use) -) 17 gm PO DAILY [facility] Last Admin: 08/19/17 12:20 Dose: 17 gm Potassium Chloride (Potassium Chloride Oral Liquid) 40 meq PO DAILY [facility] Last Admin: 08/19/17 09:16 Dose: 40 meq Multivit/Folic Acid/Iron ( Vitamins (Sjr) -) 1 tab PO DAILY [facility] Last Admin: 08/19/17 09:15 Dose: 1 tab Thiamine HCl (Vitamin B1 Injection -) 200 mg IVPB Q8H-IV [facility] Stop: 08/19/17 17:59 Last Admin: 08/19/17 10:00 Dose: 200 mg - Objective Vital Signs: Vital Signs Temperature 98.7 F 08/19/17 05:54 Pulse Rate 83 08/19/17 05:54 Respiratory Rate 18 08/19/17 10:00 Blood Pressure 119/82 08/19/17 05:54 O2 Sat by Pulse Oximetry (%) 96 08/19/17 09:00 Constitutional: Yes: Well Nourished, No Distress, Calm Cardiovascular: Yes: Regular Rate and Rhythm Respiratory: Yes: Regular Gastrointestinal: Yes: Normal Bowel Sounds, Soft Musculoskeletal: Yes: Muscle Weakness Extremities: Yes: WNL Edema: No Peripheral Pulses WNL: Yes Neurological: Yes: Alert, Oriented Psychiatric: Yes: Alert, Oriented Labs: CBC, BMP 08/18/17 06:00 08/18/17 06:00 INR, PTT INR 1.05 (0.82-1.09) 08/13/17 06:00 Problem List - Problems (1) Alcoholic pancreatitis Assessment/Plan: -lipase still elevated -repeat CT Abd/pel Tolerating po intake pain management will go to [facility] [place] after d/c PT eval- walked 100 ft with close contact guard of 1 DVT prophylaxis Code(s): K85.20 - ALCOHOL INDUCED ACUTE PANCREATITIS WITHOUT NECROSIS OR INFCT (2) Alcohol abuse Assessment/Plan: Detox-rehab seen by Tone barrios protocol finished Counseling Code(s): F10.10 - ALCOHOL ABUSE, UNCOMPLICATED Assessment/Plan see problem list
--- NOTE | 2017-08-20 09:05 | DS ---
Physical Examination Vital Signs: Vital Signs Temperature 98.4 F 08/20/17 06:26 Pulse Rate 97 H 08/20/17 06:26 Respiratory Rate 20 08/20/17 06:26 Blood Pressure 117/73 08/20/17 06:26 O2 Sat by Pulse Oximetry (%) 96 08/19/17 19:46 Findings/Remarks: feels much better tolerating diet no pain Cardiovascular: Yes: Regular Rate and Rhythm Respiratory: Yes: Regular, CTA Bilaterally Gastrointestinal: Yes: Normal Bowel Sounds, Soft. No: Tenderness Labs: CBC, BMP 08/18/17 06:00 08/18/17 06:00 Discharge Summary Reason For Visit: PANCREATITIS Current Active Problems Alcohol dependence with uncomplicated withdrawal (Acute) Alcoholic pancreatitis (Acute) Pancreatitis (Acute) Right sided weakness (Acute) Hospital Course: The patient is a 47F with a PMH of alcoholism (last drink yesterday at 1600) and HLD who presents to the ER with abdominal pain. The patient states that she' s had 2 days of worsening abdominal pain which is a sore/pressure in her epigatrium and radiates bilaterally, then down her b/l flanks and down to her groin. The pain also moves superiorly to the patient's chest and around her L breast. She states that her skin hurts to touch. She also admits to nausea and 3 bouts of NBNB vomiting last night. The patient admits to binge drinking over the weekend because she has been stressed out. She denies any exacerbating or alleviating factors. She denies CP, SOB, fever, chills. IN ER found to have elevated lipase level - Past Medical History [employer]: Yes: Other (No h/o DTs or seizures) Cardiovascular: Yes: Hyperlipdemia Psych: Yes: Depression - Problems (1) Alcoholic pancreatitis Assessment/Plan: -lipase still elevated trending down--will dc if ok with gi with outpatient follow up -repeat CT Abd/pel Tolerating po intake pain management will go to [facility] [place] after d/c PT eval- walked 100 ft with close contact guard of 1 DVT prophylaxis Code(s): K85.20 - ALCOHOL INDUCED ACUTE PANCREATITIS WITHOUT NECROSIS OR INFCT (2) Alcohol abuse Assessment/Plan: Detox-rehab seen by [facility] librium protocol finished Counseling Code(s): F10.10 - ALCOHOL ABUSE, UNCOMPLICATED Condition: Stable - Instructions Diet, Activity, Other Instructions: ABSTAIN FROM ALCOHOL SUPPORT GROUP AT [facility] PT WITH DR SKY SEE YOUR PMD DR TORRES OUTPATIENT FOLLOW UP LABS Referrals: Jimmy Torres [Primary Care Provider] - Disposition: VNS/HOME HEALTH CARE - Home Medications Comprehensive Discharge Medication List: Ambulatory Orders Folic Acid - 1 mg PO DAILY #30 tablet 08/19/17 Polyethylene Glycol 3350 [Miralax 119 gm Btl -] 17 gm PO DAILY #1 bottle Potassium Chloride 20 meq PO DAILY #30 tablet.er 08/19/17 Vitamins (Sjr) - 1 tab PO DAILY #30 tablet 08/19/17 Thiamine HCl 500 mg PO DAILY #30 tablet 08/19/17 Vit B12/Intrinsic Fact/Folate [Intrinsi R62-Iuatss Tablet] 1 each PO DAILY #30 tablet 08/19/17
[2017-08-20] MEDS: PRENATAL VITAMINS W/ FOLIC ACID TABLET (FP) PO SCH (09:42)
[2017-08-20] MEDS: CYANOCOBALAMIN (VITAMIN B-12) 1000 MCG/1 ML VIAL IM SCH (09:42)
[2017-08-20] MEDS: FOLIC ACID 1 MG TABLET (FP) PO SCH (09:43)
[2017-08-20] MEDS: POLYETHYLENE GLYCOL 3350 119 GM BTL PO SCH (09:43)
[2017-08-20] MEDS: HEPARIN NA (PORCINE) 5,000 UNITS/ML 1ML VIAL SQ SCH ×2 (09:43→21:57)
[2017-08-20] MEDS: POTASSIUM CHLORIDE ORAL LIQUID 20 MEQ/15 ML PO SCH (09:44)
--- NOTE | 2017-08-20 13:32 | PN ---
Progress Note (short form) - Note Progress Note: CT was done without contrast. A new study with contrast/pancreatic protocol ordered. Problem List - Problems (1) Alcoholic pancreatitis Code(s): K85.20 - ALCOHOL INDUCED ACUTE PANCREATITIS WITHOUT NECROSIS OR INFCT (2) Pancreatitis Code(s): K85.90 - ACUTE PANCREATITIS WITHOUT NECROSIS OR INFECTION, UNSP Qualifiers: Chronicity: acute Pancreatitis type: alcohol induced Acute pancreatitis complication: unspecified Qualified Code(s): K85.20 - Alcohol induced acute pancreatitis without necrosis or infection (3) Alcohol abuse Code(s): F10.10 - ALCOHOL ABUSE, UNCOMPLICATED (4) Alcohol dependence Code(s): F10.20 - ALCOHOL DEPENDENCE, UNCOMPLICATED Qualifiers: Substance use status: in withdrawal Complication of substance-induced condition: uncomplicated Qualified Code(s): F10.230 - Alcohol dependence with withdrawal, uncomplicated
--- NOTE | 2017-08-20 21:59 | PN ---
Progress Note (short form) - Note Progress Note: NEUROLOGY FOLLOW-UP: Events reviewed and discussed with RN. Pt. c/o feet hurting and unsteady gait requiring walker. Still with markedly increased Lipase. In patient ETOH apparently cost prohibitive. EXAM: Awake, alert. Ox 3. Dysarthria is improved. No nystagmus. NORMAL strength including proximal legs. Areflexic in legs. Toes downgoing. Ambulates with min assistance. Romberg Negative. IMP: Alcoholic proximal myopathy- improving. Mild encephalopathy- improving. SUGGEST: Consider PM&R transfer for continued strengthening and Balance Rx. Continue multivitamines, thiamine and nutritional support. AA Thank you very much, Chapin Arizmendi MD
[2017-08-21] MEDS ORDERED: ACETAMINOPHEN 325 MG TABLET (FP) PO ONE ×2 (01:20→23:45)
[2017-08-21] MEDS: FOLIC ACID 1 MG TABLET (FP) PO SCH (09:38)
[2017-08-21] MEDS: HEPARIN NA (PORCINE) 5,000 UNITS/ML 1ML VIAL SQ SCH ×2 (09:38→21:02)
[2017-08-21] MEDS: PRENATAL VITAMINS W/ FOLIC ACID TABLET (FP) PO SCH (09:38)
[2017-08-21] MEDS: POTASSIUM CHLORIDE ORAL LIQUID 20 MEQ/15 ML PO SCH (09:38)
[2017-08-21] MEDS: CYANOCOBALAMIN (VITAMIN B-12) 1000 MCG/1 ML VIAL IM SCH (09:39)
[2017-08-21] MEDS: POLYETHYLENE GLYCOL 3350 119 GM BTL PO SCH (09:48)
--- NOTE | 2017-08-21 10:50 | PN ---
Progress Note, Physician Chief Complaint: Alcoholic pancreatitis History of Present Illness: NAD,feeling better regular diet abdominal pain improved no N/V Seen by GI - Current Medication List Current Medications: Active Medications Cyanocobalamin (Vitamin B12 Injection -) 1,000 mcg IM DAILY [facility] Last Admin: 08/21/17 09:39 Dose: 1,000 mcg Folic Acid (Folic Acid -) 1 mg PO DAILY [facility] Last Admin: 08/21/17 09:38 Dose: 1 mg Heparin Sodium (Porcine) (Heparin -) 5,000 unit SQ BID [facility] Last Admin: 08/21/17 09:38 Dose: 5,000 unit Ondansetron HCl (Zofran Injection) 4 mg IVPUSH Q6H PRN PRN Reason: NAUSEA Polyethylene Glycol (Miralax (For Daily Use) -) 17 gm PO DAILY [facility] Last Admin: 08/21/17 09:48 Dose: 17 gm Potassium Chloride (Potassium Chloride Oral Liquid) 40 meq PO DAILY [facility] Last Admin: 08/21/17 09:38 Dose: 40 meq Multivit/Folic Acid/Iron ( Vitamins (Sjr) -) 1 tab PO DAILY [facility] Last Admin: 08/21/17 09:38 Dose: 1 tab - Objective Vital Signs: Vital Signs Temperature 98.0 F 08/21/17 09:39 Pulse Rate 97 H 08/21/17 09:39 Respiratory Rate 20 08/21/17 09:39 Blood Pressure 132/98 08/21/17 09:39 O2 Sat by Pulse Oximetry (%) 97 08/21/17 09:00 Constitutional: Yes: Well Nourished, No Distress, Calm Cardiovascular: Yes: Regular Rate and Rhythm Respiratory: Yes: Regular Gastrointestinal: Yes: Normal Bowel Sounds, Soft, Abdomen, Obese Labs: CBC, BMP 08/18/17 06:00 08/18/17 06:00 INR, PTT INR 1.05 (0.82-1.09) 08/13/17 06:00 Problem List - Problems (1) Alcoholic pancreatitis Code(s): K85.20 - ALCOHOL INDUCED ACUTE PANCREATITIS WITHOUT NECROSIS OR INFCT (2) Alcohol abuse Code(s): F10.10 - ALCOHOL ABUSE, UNCOMPLICATED
--- NOTE | 2017-08-21 12:05 | PN ---
Progress Note, Physician History of Present Illness: Appears comfortable. Not in pain, or discomfort. The lipase remains in 2000 range. Cannot obtain pancreatic protocol CT due to allergy to contrast. - Current Medication List Current Medications: Active Medications Cyanocobalamin (Vitamin B12 Injection -) 1,000 mcg IM DAILY [facility] Last Admin: 08/21/17 09:39 Dose: 1,000 mcg Folic Acid (Folic Acid -) 1 mg PO DAILY [facility] Last Admin: 08/21/17 09:38 Dose: 1 mg Heparin Sodium (Porcine) (Heparin -) 5,000 unit SQ BID [facility] Last Admin: 08/21/17 09:38 Dose: 5,000 unit Ondansetron HCl (Zofran Injection) 4 mg IVPUSH Q6H PRN PRN Reason: NAUSEA Polyethylene Glycol (Miralax (For Daily Use) -) 17 gm PO DAILY [facility] Last Admin: 08/21/17 09:48 Dose: 17 gm Potassium Chloride (Potassium Chloride Oral Liquid) 40 meq PO DAILY [facility] Last Admin: 08/21/17 09:38 Dose: 40 meq Multivit/Folic Acid/Iron ( Vitamins (Sjr) -) 1 tab PO DAILY [facility] Last Admin: 08/21/17 09:38 Dose: 1 tab - Objective Vital Signs: Vital Signs Temperature 98.0 F 08/21/17 09:39 Pulse Rate 97 H 08/21/17 09:39 Respiratory Rate 20 08/21/17 09:39 Blood Pressure 132/98 08/21/17 09:39 O2 Sat by Pulse Oximetry (%) 97 08/21/17 09:00 Constitutional: Yes: Well Nourished, No Distress, Calm Labs: CBC, BMP 08/18/17 06:00 08/18/17 06:00 INR, PTT INR 1.05 (0.82-1.09) 08/13/17 06:00 Laboratory Last Values WBC 5.0 K/mm3 (4.0-10.0) 08/18/17 06:00 RBC 2.88 M/mm3 (3.60-5.2) L 08/18/17 06:00 Hgb 9.5 GM/dL (10.7-15.3) L 08/18/17 06:00 Hct 27.7 % (32.4-45.2) L 08/18/17 06:00 MCV 96.3 fl (80-96) H 08/18/17 06:00 MCH 32.8 pg (25.7-33.7) 08/18/17 06:00 MCHC 34.1 g/dl (32.0-36.0) 08/18/17 06:00 RDW 26.1 % (11.6-15.6) H 08/18/17 06:00 Plt Count 285 K/MM3 (134-434) D 08/18/17 06:00 MPV 7.4 fl (7.5-11.1) L 08/18/17 06:00 Neutrophils % 60.7 % (42.8-82.8) 08/18/17 06:00 Lymphocytes % 22.0 % (8-40) 08/18/17 06:00 Monocytes % 13.1 % (3.8-10.2) H 08/18/17 06:00 Eosinophils % 3.0 % (0-4.5) 08/18/17 06:00 Basophils % 1.2 % (0-2.0) 08/18/17 06:00 Nucleated RBC % 0 % (0-0) 08/18/17 06:00 Hypochromia 1+ 08/14/17 06:00 Anisocytosis 3+ 08/14/17 06:00 Macrocytosis 1+ 08/14/17 06:00 PT with INR 11.90 SEC (9.7-13.0) 08/13/17 06:00 INR 1.05 (0.82-1.09) 08/13/17 06:00 PTT (Actin FS) 30.3 SECONDS (26.9-34.4) 08/13/17 06:00 Sodium 139 mmol/L (136-145) 08/18/17 06:00 Potassium 4.4 mmol/L (3.5-5.1) 08/18/17 06:00 Chloride 106 mmol/L (98-107) 08/18/17 06:00 Carbon Dioxide 29 mmol/L (21-32) 08/18/17 06:00 Anion Gap 4 (8-16) L 08/18/17 06:00 BUN 8 mg/dL (7-18) 08/18/17 06:00 Creatinine 0.6 mg/dL (0.55-1.02) 08/18/17 06:00 Creat Clearance w eGFR > 60 (>60) 08/18/17 06:00 Random Glucose 113 mg/dL (74-106) H 08/18/17 06:00 Calcium 9.0 mg/dL (8.5-10.1) 08/18/17 06:00 Phosphorus 1.7 mg/dL (2.5-4.9) L 08/13/17 06:00 Magnesium 1.8 mg/dL (1.8-2.4) 08/13/17 06:00 Iron 40 ug/dL (27-159) 08/14/17 06:00 TIBC 170 ug/dL (250-450) L 08/14/17 06:00 Iron Saturation 24 % (15-55) 08/14/17 06:00 Ferritin 265.140 ng/ml (6.9-282.5) 08/14/17 06:00 Total Bilirubin 0.2 mg/dL (0.2-1.0) 08/18/17 06:00 Direct Bilirubin 0.2 mg/dL (0.0-0.2) 08/15/17 10:25 AST 50 U/L (15-37) H 08/18/17 06:00 ALT 36 U/L (12-78) 08/18/17 06:00 Alkaline Phosphatase 95 U/L (45-117) 08/18/17 06:00 Ammonia 18.03 umol/L (11-32) 08/15/17 10:25 Creatine Kinase 52 IU/L (26-192) 08/12/17 08:45 Troponin I < 0.02 ng/ml (0.00-0.05) 08/12/17 08:45 B-Natriuretic Peptide 40.45 pg/ml (5-125) 08/13/17 06:00 Total Protein 6.3 g/dl (6.4-8.2) L 08/18/17 06:00 Albumin 2.6 g/dl (3.4-5.0) L 08/18/17 06:00 Total Amylase 132 U/L (25-115) H 08/15/17 10:25 Lipase 2122 U/L (73-393) H 08/20/17 08:54 Vitamin B12 311 pg/ml (180-914) 08/15/17 10:25 Serum Folate 3 ng/ml (3.1-17.5) L 08/15/17 10:25 TSH 2.73 uIU/ml (0.358-3.74) 08/17/17 06:30 Serum , Qual Negative 08/12/17 08:45 Urine Color Dk yellow 08/12/17 10:22 Urine Appearance Clear 08/12/17 10:22 Urine pH 6.0 (5.0-8.0) 08/12/17 10:22 Ur Specific [place] 1.025 (1.001-1.035) 08/12/17 10:22 Urine Protein 2+ (NEGATIVE) H 08/12/17 10:22 Urine Glucose (UA) Negative (NEGATIVE) 08/12/17 10:22 Urine Ketones 2+ (NEGATIVE) H 08/12/17 10:22 Urine Blood Negative (NEGATIVE) 08/12/17 10:22 Urine Nitrite Negative (NEGATIVE) 08/12/17 10:22 Urine Bilirubin 2.0 (<2.0 mg/dL) 08/12/17 10:22 Urine Urobilinogen 2.0 mg/dL (0.2-1.0) H 08/12/17 10:22 Ur Leukocyte Esterase Negative (NEGATIVE) 08/12/17 10:22 Urine WBC (Auto) 4 /hpf (3-5) 08/12/17 10:22 Urine RBC (Auto) 1 /hpf (0-3) 08/12/17 10:22 Ur Epithelial Cells Rare /HPF (FEW) 08/12/17 10:22 Hyaline Casts 16 /lpf 08/12/17 10:22 Urine Mucus Rare 08/12/17 10:22 Urine HCG, Qual Negative 08/12/17 18:50 Stool Occult Blood Negative (NEGATIVE) 08/13/17 20:30 Opiates Screen Positive ng/ml (ARBZUW=698) 08/12/17 18:50 Methadone Screen Negative ng/ml (BNLBRY=646) 08/12/17 18:50 Barbiturate Screen Negative ng/ml (OSYHLE=243) 08/12/17 18:50 Phencyclidine Screen Negative ng/ml (CUTOFF=25) 08/12/17 18:50 Ur Amphetamines Screen Negative ng/ml (UZNICB=114) 08/12/17 18:50 MDMA (Ecstasy) Screen Negative ng/ml (LPVSSE=223) 08/12/17 18:50 Benzodiazepines Screen Negative ng/ml (JMJJQW=784) 08/12/17 18:50 Cocaine Screen Negative ng/ml (SZUFCY=143) 08/12/17 18:50 U Marijuana (THC) Screen Negative ng/ml (CUTOFF=50) 08/12/17 18:50 Alcohol, Quantitative < 5.0 mg/dL (0.0-5.0) 08/12/17 08:45 Problem List - Problems (1) Alcoholic pancreatitis Code(s): K85.20 - ALCOHOL INDUCED ACUTE PANCREATITIS WITHOUT NECROSIS OR INFCT (2) Pancreatitis Code(s): K85.90 - ACUTE PANCREATITIS WITHOUT NECROSIS OR INFECTION, UNSP Qualifiers: Chronicity: acute Pancreatitis type: alcohol induced Acute pancreatitis complication: unspecified Qualified Code(s): K85.20 - Alcohol induced acute pancreatitis without necrosis or infection (3) Alcohol abuse Code(s): F10.10 - ALCOHOL ABUSE, UNCOMPLICATED (4) Alcohol dependence Code(s): F10.20 - ALCOHOL DEPENDENCE, UNCOMPLICATED Qualifiers: Substance use status: in withdrawal Complication of substance-induced condition: uncomplicated Qualified Code(s): F10.230 - Alcohol dependence with withdrawal, uncomplicated Assessment/Plan MRI/MRCP with without contrast. Discussed with the patient.
[2017-08-22] MEDS ORDERED: ACETAMINOPHEN 325 MG TABLET (FP) PO ONE ×2 (05:15→10:15)
[2017-08-22] MEDS: POTASSIUM CHLORIDE ORAL LIQUID 20 MEQ/15 ML PO SCH (09:11)
[2017-08-22] MEDS: FOLIC ACID 1 MG TABLET (FP) PO SCH (09:11)
[2017-08-22] MEDS: PRENATAL VITAMINS W/ FOLIC ACID TABLET (FP) PO SCH (09:11)
[2017-08-22] MEDS: HEPARIN NA (PORCINE) 5,000 UNITS/ML 1ML VIAL SQ SCH (09:11)
--- NOTE | 2017-08-22 09:12 | PN ---
Progress Note (short form) - Note Progress Note: MRI/MRCP results noted. Asymptomatic and tolerating current diet. Follow up as OP in 1 week. Seen immediate medical attention if abdominal pain, jaundice, fever, nausea, vomiting. Problem List - Problems (1) Alcoholic pancreatitis Code(s): K85.20 - ALCOHOL INDUCED ACUTE PANCREATITIS WITHOUT NECROSIS OR INFCT (2) Pancreatitis Code(s): K85.90 - ACUTE PANCREATITIS WITHOUT NECROSIS OR INFECTION, UNSP Qualifiers: Chronicity: acute Pancreatitis type: alcohol induced Acute pancreatitis complication: unspecified Qualified Code(s): K85.20 - Alcohol induced acute pancreatitis without necrosis or infection (3) Alcohol abuse Code(s): F10.10 - ALCOHOL ABUSE, UNCOMPLICATED (4) Alcohol dependence Code(s): F10.20 - ALCOHOL DEPENDENCE, UNCOMPLICATED Qualifiers: Substance use status: in withdrawal Complication of substance-induced condition: uncomplicated Qualified Code(s): F10.230 - Alcohol dependence with withdrawal, uncomplicated
[2017-08-22] MEDS: CYANOCOBALAMIN (VITAMIN B-12) 1000 MCG/1 ML VIAL IM SCH (09:13)
[2017-08-22] MEDS: POLYETHYLENE GLYCOL 3350 119 GM BTL PO SCH (09:13)
[2017-08-22 09:16] VITALS: BP 133/78; PULSE 94; TEMP 98
--- NOTE | 2017-08-22 11:31 | PN ---
Progress Note, Physician Chief Complaint: Alcoholic pancreatitis History of Present Illness: NAD,feeling better regular diet abdominal pain improved no N/V Seen by GI - Current Medication List Current Medications: Active Medications Cyanocobalamin (Vitamin B12 Injection -) 1,000 mcg IM DAILY [facility] Last Admin: 08/22/17 09:13 Dose: 1,000 mcg Folic Acid (Folic Acid -) 1 mg PO DAILY [facility] Last Admin: 08/22/17 09:11 Dose: 1 mg Heparin Sodium (Porcine) (Heparin -) 5,000 unit SQ BID [facility] Last Admin: 08/22/17 09:11 Dose: 5,000 unit Ondansetron HCl (Zofran Injection) 4 mg IVPUSH Q6H PRN PRN Reason: NAUSEA Polyethylene Glycol (Miralax (For Daily Use) -) 17 gm PO DAILY [facility] Last Admin: 08/22/17 09:13 Dose: Not Given Potassium Chloride (Potassium Chloride Oral Liquid) 40 meq PO DAILY [facility] Last Admin: 08/22/17 09:11 Dose: 40 meq Multivit/Folic Acid/Iron ( Vitamins (Sjr) -) 1 tab PO DAILY [facility] Last Admin: 08/22/17 09:11 Dose: 1 tab - Objective Vital Signs: Vital Signs Temperature 98 F 08/22/17 08:40 Pulse Rate 94 H 08/22/17 09:15 Respiratory Rate 20 08/22/17 09:15 Blood Pressure 133/78 08/22/17 09:15 O2 Sat by Pulse Oximetry (%) 99 08/22/17 08:40 Constitutional: Yes: Well Nourished, No Distress, Calm Labs: CBC, BMP 08/18/17 06:00 08/18/17 06:00 INR, PTT INR 1.05 (0.82-1.09) 08/13/17 06:00 Problem List - Problems (1) Alcoholic pancreatitis Code(s): K85.20 - ALCOHOL INDUCED ACUTE PANCREATITIS WITHOUT NECROSIS OR INFCT (2) Alcohol abuse Code(s): F10.10 - ALCOHOL ABUSE, UNCOMPLICATED
== END 2017-08-22 13:09 | disposition home health service (06) | DRG 642 ==
LOC: JER 07:51 → JERBED 11:28 → J7W 14:02 → J4W 08-15 18:14 → J7W 08-18 17:25
PROVIDERS: ADMIT Student in an Organized Health Care Education/Training Program; ATTEND Student in an Organized Health Care Education/Training Program
PROC: HZ2ZZZZ Detoxification Services for Substance Abuse Treatment (ICD-10-PCS; principal; 2017-08-12)
DX: E78.5 Hyperlipidemia, unspecified (principal); K85.20 Alcohol induced acute pancreatitis without necrosis or infection; G93.41 Metabolic encephalopathy; R64 Cachexia; F10.230 Alcohol dependence with withdrawal, uncomplicated; F32.9 Major depressive disorder, single episode, unspecified; Y90.0 Blood alcohol level of less than 20 mg/100 ml; Z68.21 Body mass index [BMI] 21.0-21.9, adult; K70.0 Alcoholic fatty liver; E87.6 Hypokalemia; D64.9 Anemia, unspecified; R53.1 Weakness; G72.89 Other specified myopathies; G56.03 Carpal tunnel syndrome, bilateral upper limbs; R26.81 Unsteadiness on feet
CPT/HCPCS: 36415; 70551-TC; 74176-TC; 74182-TC; 80048; 80053; 80076; 80307; 81003; 81015; 82140; 82150; 82272; 82550; 82607; 82728; 82746; 83540; 83550; 83690; 83735; 83880; 84100; 84436; 84443; 84484; 84703; 85025; 85610; 85730; 93005; 93010; 97116-GP; 97161-GP; 99283-25; J1644; J7030